=== PATIENT | male | born 1955 | race Caucasian/White ===

== ENCOUNTER 2016-08-12 16:29 | Inpatient (IN) | payer OTHER ==
--- NOTE | 2016-08-12 16:41 | ED ---
General Adult HPI - General Stated complaint: JOSR, STOMA Time Seen by Provider: 08/12/16 16:30 Source: RN notes reviewed - History of Present Illness Initial comments: This is a 61-year-old male who presents emergency Department complaining of coughing but a bit. Patient has a tracheostomy. Patient states while he was coughing this morning it got plugged with what he believes to be mucus but he was unable to suction it out as they came to the emergency department. Patient denies any fever or chills. Patient denies any chest pain or palpitations. Patient denies abdominal pain patient denies nausea vomiting or diarrhea per patient denies headache patient denies numbness weakness. It is difficult to get much more history out of the patient because he is nonverbal - Related Data Home Medications Medication Instructions Recorded Confirmed Budesonide [Pulmicort] 0.5 mg INHALATION RT-BID 11/11/13 08/12/16 Furosemide [Lasix] 40 mg PO TID 11/11/13 08/12/16 Lactulose 30 gm PO DAILY 08/12/16 08/12/16 Spironolactone [Aldactone] 50 mg PO TID 08/12/16 08/12/16 Allergies Allergy/AdvReac Type Severity Reaction Status Date / Time No Known Allergies Allergy Verified 08/12/16 17:01 Review of Systems ROS Statement: Those systems with pertinent positive or pertinent negative responses have been documented in the HPI. ROS Other: All systems not noted in ROS Statement are negative. Past Medical History Past Medical History: GERD/Reflux, Hypertension, Thyroid Disorder Additional Past Medical History / Comment(s): throat cancer, anxiety, chf History of Any Multi-Drug Resistant Organisms: None Reported Additional Past Surgical History / Comment(s): trach Past Psychological History: Anxiety Smoking Status: Former smoker Past Alcohol Use History: None Reported Past Drug Use History: None Reported General Exam - General Exam Comments Initial Comments: GENERAL: Patient is well-developed and well-nourished. Patient is nontoxic and well- hydrated and is in mild distress. ENT: Neck is soft and supple. No significant lymphadenopathy is noted. Oropharynx is clear. Moist mucous membranes. Neck has full range of motion without eliciting any pain. EYES: The sclera were anicteric and conjunctiva were pink and moist. Extraocular movements were intact and pupils were equal round and reactive to light. Eyelids were unremarkable. PULMONARY: Patient has some diminished breath sounds CARDIOVASCULAR: Patient is tachycardic at about 150 beats a minute ABDOMEN: Soft and nontender with normal bowel sounds. No palpable organomegaly was noted. There is no palpable pulsatile mass. SKIN: Skin is clear with no lesions or rashes and otherwise unremarkable. NEUROLOGIC: Patient is alert and oriented x3. Cranial nerves II through XII are grossly intact. Motor and sensory are also intact. Normal speech, volume and content. Symmetrical smile. MUSCULOSKELETAL: Normal extremities with adequate strength and full range of motion. LYMPHATICS: No significant lymphadenopathy is noted PSYCHIATRIC: Normal psychiatric evaluation. Course Vital Signs 08/12/16 08/12/16 08/12/16 16:32 17:03 17:14 Temperature 97.9 F Pulse Rate 148 H 145 H 127 H Respiratory 22 22 24 Rate Blood Pressure 158/100 136/76 O2 Sat by Pulse 95 95 Oximetry 08/12/16 17:56 Temperature Pulse Rate 131 H Respiratory Rate Blood Pressure O2 Sat by Pulse Oximetry Medical Decision Making - Medical Decision Making EKG shows supraventricular tachycardia with a PVC at 159 bpm QRS is 84 QT interval 348 QTC is 558. Patient's EKG shows no ST segment elevation or depression I compared to an old EKG aside from the tachycardia I noticed no significant differences Patient's EKG showed a heart rate of 150s I gave the patient 6 of adenosine slowed down to a normal sinus rhythm then went back up to 130 beats a minute. At 130 I see no P waves it's not a regular period Chest x-ray shows a right lower lobe infiltrate. Patient is also tachycardic and appears to be an SVT of the rate is only about 130-150. His any P waves and it does not appear to be atrial fibrillation because it is not irregular I started the patient on antibiotics and a Cardizem drip - Lab Data Result diagrams: 08/12/16 16:35 08/12/16 16:35 Lab Results 08/12/16 08/12/16 08/12/16 Range/Units 16:35 16:35 16:35 WBC 10.0 (3.8-10.6) k/uL RBC 5.22 (4.30-5.90) m/uL Hgb 16.2 (13.0-17.5) gm/dL Hct 49.2 (39.0-53.0) % MCV 94.2 (80.0-100.0) fL MCH 31.0 (25.0-35.0) pg MCHC 32.9 (31.0-37.0) g/dL RDW 16.7 H (11.5-15.5) % Plt Count 176 (150-450) k/uL Neutrophils % (Manual) 83.0 % Band Neutrophils % 3.0 % Lymphocytes % (Manual) 8.0 % Monocytes % (Manual) 6.0 % Neutrophils # (Manual) 8.6 H (1.3-7.7) k/uL Lymphocytes # (Manual) 0.8 L (1.0-4.8) k/uL Monocytes # (Manual) 0.6 (0-1.0) k/uL Nucleated RBCs 0 (0-0) /100 WBC Manual Slide Review Performed Large Platelets Present Poikilocytosis Slight Anisocytosis Slight PT (9.0-12.0) sec INR (<1.1) APTT (22.0-30.0) sec D-Dimer (<0.60) mg/L FEU Sodium 146 H (137-145) mmol/L Potassium 3.0 L* (3.5-5.1) mmol/L Chloride 105 (98-107) mmol/L Carbon Dioxide 22 (22-30) mmol/L Anion Gap 19 mmol/L BUN 16 (9-20) mg/dL Creatinine 1.50 H (0.66-1.25) mg/dL Est GFR (MDRD) Af Amer 58 (>60 ml/min/1.73 sqM) Est GFR (MDRD) Non-Af 48 (>60 ml/min/1.73 sqM) Glucose 138 H (74-99) mg/dL Calcium 8.7 (8.4-10.2) mg/dL Total Bilirubin 1.8 H (0.2-1.3) mg/dL AST 121 H (17-59) U/L ALT 74 H (21-72) U/L Alkaline Phosphatase 146 H (38-126) U/L Total Creatine Kinase 524 H (55-170) U/L CK-MB (CK-2) 2.1 (0.0-2.4) ng/mL CK-MB (CK-2) Rel Index 0.4 Troponin I 0.013 (0.000-0.034) ng/mL Total Protein 7.1 (6.3-8.2) g/dL Albumin 3.4 L (3.5-5.0) g/dL 08/12/16 08/12/16 Range/Units 16:35 16:35 WBC (3.8-10.6) k/uL RBC (4.30-5.90) m/uL Hgb (13.0-17.5) gm/dL Hct (39.0-53.0) % MCV (80.0-100.0) fL MCH (25.0-35.0) pg MCHC (31.0-37.0) g/dL RDW (11.5-15.5) % Plt Count (150-450) k/uL Neutrophils % (Manual) % Band Neutrophils % % Lymphocytes % (Manual) % Monocytes % (Manual) % Neutrophils # (Manual) (1.3-7.7) k/uL Lymphocytes # (Manual) (1.0-4.8) k/uL Monocytes # (Manual) (0-1.0) k/uL Nucleated RBCs (0-0) /100 WBC Manual Slide Review Large Platelets Poikilocytosis Anisocytosis PT 12.9 H (9.0-12.0) sec INR 1.3 (<1.1) APTT 25.7 (22.0-30.0) sec D-Dimer 0.53 (<0.60) mg/L FEU Sodium (137-145) mmol/L Potassium (3.5-5.1) mmol/L Chloride (98-107) mmol/L Carbon Dioxide (22-30) mmol/L Anion Gap mmol/L BUN (9-20) mg/dL Creatinine (0.66-1.25) mg/dL Est GFR (MDRD) Af Amer (>60 ml/min/1.73 sqM) Est GFR (MDRD) Non-Af (>60 ml/min/1.73 sqM) Glucose (74-99) mg/dL Calcium (8.4-10.2) mg/dL Total Bilirubin (0.2-1.3) mg/dL AST (17-59) U/L ALT (21-72) U/L Alkaline Phosphatase (38-126) U/L Total Creatine Kinase (55-170) U/L CK-MB (CK-2) (0.0-2.4) ng/mL CK-MB (CK-2) Rel Index Troponin I (0.000-0.034) ng/mL Total Protein (6.3-8.2) g/dL Albumin (3.5-5.0) g/dL Critical Care Time Critical Care Time: Yes Total Critical Care Time: 35 Disposition Clinical Impression: Pneumonia, Tachycardia, Hypokalemia Disposition: ADMITTED IP TO THIS HOSP Referrals: Iban Torres MD [Primary Care Provider] - 1-2 days Time of Disposition: 17:58
[2016-08-12 17:07] LABS: INR 1.3 (<1.1); Partial Thromboplastin Time 25.7 sec (22.0-30.0); Prothrombin Time 12.9 sec (9.0-12.0)
--- NOTE | 2016-08-12 17:07 | XR ---
EXAMINATION TYPE: XR chest 1V portable DATE OF EXAM: 08/12/2016 5:01 PM COMPARISON: 11/11/2013 HISTORY: Difficulty breathing and cough TECHNIQUE: Single frontal view of the chest is obtained. FINDINGS: There is a mild infiltrate at the right lung base. There is no gross heart failure. Heart size is normal. There is slight blunting of right costophrenic angle. There are no hilar masses. Ther e are chest leads. IMPRESSION: There is a new mild right lower lobe infiltrate and pleural fluid compared to last exam. No gross heart failure.
[2016-08-12 17:08] LABS: Anisocytosis Slight; Aty Lym Flag Marked; CH 32.3; CHCM 34.5; HCT 49.2 % (39.0-53.0); HDW 3.79; HGB 16.2 gm/dL (13.0-17.5); Large Platelets Flag Marked; MCHC 32.9 g/dL (31.0-37.0); MCV 94.2 fL (80.0-100.0); Mean Platelet Volume 11.7; Poikilocytosis Slight; RBC 5.22 m/uL (4.30-5.90); RDW 16.7 % (11.5-15.5); WBC (Perox) 10.03
[2016-08-12 17:11] LABS: Calcium 8.7 mg/dL (8.4-10.2); Total Bilirubin 1.8 mg/dL (0.2-1.3); Total Protein 7.1 g/dL (6.3-8.2)
[2016-08-12] MEDS ORDERED: ADENOSINE 3 MG/ML 2 ML VIAL IVP STA (17:11)
[2016-08-12 17:18] LABS: Add Differential Manual Differential
[2016-08-12] MEDS ORDERED: POTASSIUM CHLORIDE ER 20 MEQ TAB.ER PO STA (17:18)
[2016-08-12] MEDS ORDERED: LEVOFLOXACIN 750MG-D5W PMX 750 MG in DEXTROSE/WATER 1 150ML.BAG IVPB STA (17:20)
[2016-08-12 17:22] LABS: Large Platelets Present; Manual Review Performed; Nucleated Red Blood Cells 0 /100 WBC (0-0); Total Cells Counted 100
[2016-08-12] MEDS ORDERED: IPRATROPIUM-ALBUTEROL 3 ML NEB INHALATION STA (17:26)
[2016-08-12 17:28] LABS: Creatine Kinase MB 2.1 ng/mL (0.0-2.4); Troponin I 0.013 ng/mL (0.000-0.034)
[2016-08-12] MEDS ORDERED: DILTIAZEM 125 MG in SODIUM CHLORIDE 0.9% 100 ML IV ONE (17:50)
[2016-08-12] MEDS ORDERED: PNEUMONIA PROTOCOL UTILIZED 1 EACH MISC PO PRN (17:59)
[2016-08-12] MEDS ORDERED: POTASSIUM CHLORIDE 10 MEQ, LIDOCAINE 2% INJ 10 MG in SODIUM CHLORIDE 0.9% 100 ML IVPB SCH (18:00)
[2016-08-12] MEDS ORDERED: TEMAZEPAM 15 MG CAP PO PRN (20:11)
[2016-08-12] MEDS ORDERED: Potassium Replacement Protocol 1 EACH MISC MISCELLANE PRN (20:55)
[2016-08-12] MEDS: ALBUTEROL NEBULIZED 2.5 MG/3 ML INHALATION SCH (21:08)
[2016-08-12] MEDS: LEVOTHYROXINE 100 MCG TAB PO SCH (21:53)
[2016-08-12] MEDS: POTASSIUM CHLORIDE ER 20 MEQ TAB.ER PO SCH ×2 (21:54→21:55)
[2016-08-12] MEDS ORDERED: INFLUENZA VACCINE (3YR+) 60 MCG/0.5 ML SYRINGE IM ONE (22:09)
[2016-08-13] MEDS: ALBUTEROL NEBULIZED 2.5 MG/3 ML INHALATION SCH (00:08)
[2016-08-13] MEDS: IPRATROPIUM-ALBUTEROL 3 ML NEB INHALATION PRN ×2 (02:56→23:47)
[2016-08-13 06:58] LABS: Calcium 8.5 mg/dL (8.4-10.2); Potassium 3.5 mmol/L (3.5-5.1)
--- NOTE | 2016-08-13 07:57 | XR ---
EXAMINATION TYPE: XR chest 2V DATE OF EXAM: 08/13/2016 7:20 AM COMPARISON: August 12, 2016 HISTORY: Shortness of breath TECHNIQUE: Frontal and lateral views of the chest are obtained. FINDINGS: Scattered senescent parenchymal changes noted. Hyperinflation compatible with COPD. Right lower lobe infiltrate persists. No evidence for atelectasis. Heart size is stable. Mediastinal structures are stable and grossly unremarkable. No evidence for hilar prominence. Degenerative changes dorsal spine. IMPRESSION: 1. No significant interval change. Right lower lobe infiltrate.
[2016-08-13] MEDS ORDERED: ALBUTEROL NEBULIZED 2.5 MG/3 ML INHALATION SCH (08:00)
[2016-08-13] MEDS: LACTULOSE 20 GM/30 ML CUP PO SCH (08:43)
[2016-08-13] MEDS ORDERED: BUDESONIDE 0.5 MG/2 ML NEBU INHALATION SCH ×2 (09:00→20:25)
[2016-08-13] MEDS: IPRATROPIUM-ALBUTEROL 3 ML NEB INHALATION SCH ×4 (09:07→20:26)
[2016-08-13] MEDS: BUDESONIDE 0.25 MG/2 ML NEBU INHALATION SCH (09:07)
--- NOTE | 2016-08-13 11:29 | CONS ---
DATE OF CONSULTATION: This is a 61-year-old gentleman with severe COPD, who is admitted to hospital with progressively worsening shortness of breath and was found to have a tachyarrhythmia that was thought to be SVT treated with adenosine without much response and subsequently had been placed on intravenous Cardizem. This morning his predominant symptom is shortness of breath. He denies chest pain, leg edema. The patient has history of cirrhosis of the liver and severe COPD. EKG showed sinus tachycardia, could even be multifocal atrial tachycardia. I do not believe he is in SVT. I am going to start the IV Cardizem and put him on oral Cardizem. He is also receiving antibiotics. Past medical history is significant for hypothyroidism, COPD, cirrhosis of the liver. Medications include Synthroid, Zithromax, Aldactone, lactulose, Lasix and Pulmicort. ALLERGIES: There are no known drug allergies. FAMILY HISTORY: Negative for premature coronary artery disease. SOCIAL HISTORY: Denies current smoking or EtOH abuse. REVIEW OF SYSTEMS: HEENT: Unremarkable. CARDIAC: As described above. RESPIRATORY: As described above. GI: Negative. GENITOURINARY: Negative. ALLERGY/IMMUNOLOGY: Negative. SKIN/MUSCULOSKELETAL: Significant for arthritis. PSYCHOSOCIAL: Negative. ENDOCRINE: Negative. DERMATOLOGIC: Negative. CONSTITUTIONAL: Negative. ONCOLOGICAL: Negative. The rest of the system review is not relevant. On exam, heart rate is 90 beats per minute. Blood pressure is 118/70, respiratory rate is 18. Chest exam reveals bilateral rhonchi. Heart exam reveals first and second heart sounds. No gallop. Abdomen is soft. Exam of the extremities reveals 1+ edema. Peripheral pulses are felt. Labs show that the hemoglobin is 16.2, platelet count is 176. Potassium was low, but this morning it is 3.5. BUN is 24. Creatinine is 1.7. AST, ALT are elevated. Albumin is low. ASSESSMENT: Sinus tachycardia secondary to underlying chronic obstructive pulmonary disease exacerbation. I am going to stop the IV Cardizem and start him on oral Cardizem. I will obtain a 2-D echo to document left ventricle function
--- NOTE | 2016-08-13 11:31 | P.CNPUL ---
History of Present Illness Consult date: 08/13/16 Reason for consult: dyspnea, COPD History of present illness: 61-year-old male patient with known history of meningeal cancer and COPD. The patient was diagnosed having laryngeal cancer approximately 4 years ago and he was treated with adjuvant/neoadjuvant chemotherapy following that he underwent a total laryngectomy at [facility]. This was followed by radiation therapy. S/P Valve was attempted to be placed on multiple occasions however this is not helpful and the speech and the valve Dislodging. Currently the Patient Is in the Hospital for Increased Shortness of Breath. The patient is known to have COPD. He quit smoking approximately 4 years ago. The patient has been using budesonide neb last treatment twice a day. He has no home oxygen. He was living his life normally and approximately 3 days ago started having increased chest congestion, shortness of breath and wheezing. He felt his chest was congested and he was getting plugged with mucus. Attempts to suction these mucous plugs were unsuccessful both at home and here in the hospital. Ultimately he was able to take out the small pieces of bloody mucoid secretions yesterday. His chest x-ray shows COPD otherwise there is no clearcut airspace disease or pneumonias. No chest pain. He has some impairment his renal function probably secondary to an acute kidney injury. His potassium level is also low and this needs to be replaced. No change in mental status. No nausea or vomiting. No history of any major swelling in the lower extremities. This is his first hospitalization over the past several years for any breathing complications. Otherwise this patient has been doing well. Review of Systems Point review of system was done and the positive findings are most above in history of present illness Past Medical History Past Medical History: Cancer, Heart Failure, GERD/Reflux, Hypertension, Liver Disease, Thyroid Disorder Additional Past Medical History / Comment(s): Status post complete laryngectomy and the patient has a tracheotomy he had surgery was done at [facility]. Chemotherapy was done prior to surgery and he received radiation therapy following the surgery, COPD, liver, liver cirrhosis and the patient has had procedures done at [facility], chronic generalized anxiety disorder, CHF, hypothyroidism History of Any Multi-Drug Resistant Organisms: None Reported Additional Past Surgical History / Comment(s): Total laryngectomy, TIPS procedure for liver cirrhosis Past Psychological History: Anxiety Smoking Status: Former smoker (Patient quit smoking 5 years ago, prior to that used to smoke 2 pack of cigarettes a day for a total of 40 years. No history of substance abuse, no alcoholism) Past Alcohol Use History: None Reported Past Drug Use History: None Reported - Past Family History Mother Family Medical History: No Reported History Father Family Medical History: Cancer Additional Family Medical History / Comment(s): prostate Medications and Allergies Home Medications Medication Instructions Recorded Confirmed Type Budesonide [Pulmicort] 0.5 mg INHALATION RT-BID 11/11/13 08/12/16 History Furosemide [Lasix] 40 mg PO TID 11/11/13 08/12/16 History Azithromycin [Zithromax] 250 mg PO MOWEFR 08/12/16 08/12/16 History Lactulose 30 gm PO DAILY 08/12/16 08/12/16 History Levothyroxine Sodium [Synthroid] 100 mcg PO HS 08/12/16 08/12/16 History Spironolactone [Aldactone] 50 mg PO TID 08/12/16 08/12/16 History Allergies Allergy/AdvReac Type Severity Reaction Status Date / Time No Known Allergies Allergy Verified 08/12/16 17:01 Physical Exam Vitals: Vital Signs Temp Pulse Pulse Resp BP BP Pulse Ox 08/13/16 09:20 90 08/13/16 09:08 90 08/13/16 08:40 98.7 F 105 H 18 118/70 94 L 08/13/16 03:23 97.2 F L 104 H 20 117/61 98 08/13/16 03:03 88 08/13/16 02:52 88 08/13/16 00:17 88 08/13/16 00:07 88 08/12/16 23:35 98.0 F 113 H 24 115/60 94 L 08/12/16 21:27 114 H 08/12/16 21:13 117 H 08/12/16 20:00 98.1 F 135 H 24 113/65 93 L 08/12/16 19:44 97.8 F 120 H 30 H 131/72 91 L 08/12/16 18:50 98.4 F 123 H 24 108/60 93 L 08/12/16 18:28 123 H 08/12/16 18:27 144 H 20 110/64 95 08/12/16 18:15 143 H 22 133/58 94 L 08/12/16 18:07 139 H Intake and Output 08/12/16 08/13/16 08/13/16 22:59 06:59 14:59 Intake Total 390 280 118 Output Total 800 175 Balance -410 280 -57 Intake: Intake, IV Titration 30 40 Amount Diltiazem 125 mg In 30 40 Sodium Chloride 0.9% 100 ml @ 10 MG/HR 10 mls/hr IV .[id number] Rx#: [id number] Oral 360 240 118 Output: Urine 800 175 Other: Voiding Method Urinal # Voids 2 350 Weight 108.7 kg 108.7 kg Head exam was generally normal. There was no scleral icterus or corneal arcus. Mucous membranes were moist. The patient has a check Semi-in place. Scars of previous surgery and radiation therapy are also noted on his anterior neck area. No lymphadenopathy. No neck masses. Lungs sounds are diminished and there is diffuse expiratory wheezes throughout the lung gaspar bilaterally. There is also prolongation of expiratory phase of breathing.Cardiac exam revealed the PMI to be normally situated and sized. The rhythm was regular and no extrasystoles were noted during several minutes of auscultation. The first and second heart sounds were normal and physiologic splitting of the second heart sound was noted. There were no murmurs, rubs, clicks, or gallops.Abdominal exam revealed normal bowel sounds. The abdomen was soft, non- tender, and without masses, organomegaly, or appreciable enlargement of the abdominal aorta.Examination of the extremities revealed easily palpable radial, femoral and pedal pulses. There was no cyanosis, clubbing or edema. Results - Laboratory Findings CBC and BMP: 08/12/16 16:35 08/13/16 06:11 PT/INR, D-dimer PT 12.9 sec (9.0-12.0) H 08/12/16 16:35 INR 1.3 (<1.1) 08/12/16 16:35 D-Dimer 0.53 mg/L FEU (<0.60) 08/12/16 16:35 Abnormal lab findings: Abnormal Labs 08/12/16 08/13/16 20:25 06:11 Potassium 3.0 L* BUN 24 H Creatinine 1.77 H Glucose 156 H - Diagnostic Findings Chest x-ray: image reviewed Assessment and Plan Plan: Assessment 1 acute COPD exacerbation with secondary shortness of breath. Rule out underlying tracheobronchitis causing some bloody mucoid secretions. 2 shortness of breath secondary to above 3 laryngeal cancer with a total laryngectomy and the patient has a tracheotomy 4 acute kidney injury 5 hypokalemia 6 mild elevation of the CPK without troponin elevation, free of any chest pain 7 CHF, history of Plan We'll start the patient on DuoNeb nebulized treatments 4 times a day around-the- clock. We will resume his budesonide neb last treatment twice a day. Cover this patient with IV Levaquin. Sputum Gram stain and culture. Oxygen therapy at 2 L of along with humidification. IV Solu Medrol 60 every 6 hours. Echocardiogram. Start the patient half-normal saline and monitor his renal function. Replete serum. We'll continue to follow anticipate further improvement over the next 24-48 hours.
[2016-08-13] MEDS: methylPREDNISolone SOD SUCCI 125 MG/2 ML VIAL IV SCH ×3 (12:16→23:41)
[2016-08-13] MEDS: DILTIAZEM ORAL 30 MG TAB PO SCH ×3 (12:16→22:08)
[2016-08-13] MEDS: HYDROcodone/APAP 5-325MG 1 EACH TAB PO PRN (12:23)
[2016-08-13] MEDS: SODIUM CHLORIDE 0.45% 1,000 ML IV SCH ×2 (12:24→23:42)
--- NOTE | 2016-08-13 13:39 | HP ---
DATE OF ADMISSION: Chief complaint is difficulty breathing. HISTORY OF PRESENT ILLNESS: Mr. Portillo is a 61-year-old male with a known history of laryngeal cancer, status post tracheostomy in 2010 and laryngectomy status post radiation and history of smoking, quit 40 years back and COPD, came to the hospital with complaints of difficulty breathing for the past 4 days. He is felt that he is getting congested and unable to lay flat at home. Attempts to suction the mucous plugs were unsuccessful, both at home and in the hospital. Chest x-ray showed a right lower lobe pulmonary infiltrate and COPD, currently patient was also found to have sinus tachycardia with heart rate around 135 when he came to the hospital and was started on Cardizem IV as well. EKG showed sinus tachycardia and chest x-ray showed initially there is a new right lower lobe infiltrate and pleural fluid compared to last exam. Pulmonary and Cardiology have been consulted. Patient otherwise did have a fever of 100 at home. Patient was found to have severe hypokalemia and currently hypokalemia improved now. Otherwise, patient denied any other complaints. REVIEW OF SYSTEMS: CONSTITUTIONAL: Patient did have fever at home and no chills. No weakness or malaise. RESPIRATORY: Patient does have cough with plug of mucus and short of breath. CARDIOVASCULAR: No chest pain. Patient does have short of breath. No leg swelling. ABDOMEN: No nausea, vomiting, or abdominal pain. GENITOURINARY: Negative. ENDOCRINE: Negative. PSYCHIATRY: Negative. SKIN: Negative. MUSCULOSKELETAL: Negative. All other 14-point review of systems negative except as above. Past medical history includes laryngeal cancer, status post total laryngectomy and radiation and tracheostomy, hypothyroidism, hypertension, CHF with ejection fraction unknown, COPD, liver cirrhosis, chronic generalized anxiety. PAST SURGICAL HISTORY: TIPS procedure for liver cirrhosis and laryngectomy. PSYCHOSOCIAL HISTORY: Anxiety. SOCIAL HISTORY: A former smoker; quit 4 years back, used to smoke 2 packs of cigarettes per day for a total of 40 years. Denied any alcohol, denied any drugs or IVDU. FAMILY HISTORY: Father had prostate cancer. Mother had no reported history. Home medication include: 1. Pulmicort. 2. Lasix. 3. Azithromycin. 4. Lactulose. 5. Levothyroxine. 6. Spironolactone. ALLERGIES: No known drug allergies. PHYSICAL EXAMINATION: A 61-year-old male, sitting on the bed, comfortably. Awake, alert, oriented x3. He appears in no apparent distress. VITALS: Blood pressure is 110/64, pulse is 144, respirations 20, temperature afebrile. Pulse ox is 95% on tracheal collar on oxygen. HEENT: Atraumatic, normocephalic. Neck is supple. Tracheostomy. No secretions at this time. CVS EXAM: S1, S2 heard. No murmurs, no gallop. LUNGS: Bilateral air entry is present, prolonged expiratory phase. No wheezing heard and decreased breath sounds at the left basal. Nonlabored breathing. Abdomen is soft, nontender. Bowel sounds present. TREE INSPECTOR: Awake, alert and oriented x3. No focal neurologic deficits. Cranial nerves grossly intact. EXTREMITIES: No edema. Pulses palpable bilaterally. No clubbing or cyanosis. PSYCHIATRIC: Cooperative. LABORATORY DATA: WBC 10.0, hemoglobin is 16.2, platelets 176, INR 1.3. D-dimer is 0.53. Sodium 146, potassium 3.0, chloride 105, bicarb is 22, creatinine 11.5. BUN 16, AST is 21, ALT is 74, alk phos 146, CPK level 524. Albumin 3.4, creatinine level increased to 1.77. IMPRESSION: 1. Shortness of breath secondary to acute chronic obstructive pulmonary disease exacerbation. 2. Right lower lobe infiltrate, possible pneumonia. 3. History of laryngeal cancer, status post total laryngectomy, status post chemoradiation and tracheostomy. 4. Acute kidney disease, most likely prerenal with worsening BUN and creatinine level. 5. Severe hypokalemia, potassium of 3.0. 6. Elevated CPK level. 7. History of congestive heart failure, ejection fraction unknown. 8. Sinus tachycardia, improved with IV Cardizem drip. DISCUSSION AND PLAN: Patient will be continued on methylprednisolone 60 mg q.6 hourly along with breathing treatments and current antibiotics, levofloxacin. Heart rate improved and Cardizem drip has been changed to p.o. now. Cardiology and Pulmonary are following the patient. Will continue the current management and follow up closely. Further recommendations based on the clinical course.
[2016-08-13] MEDS ORDERED: LEVOFLOXACIN 750MG-D5W PMX 750 MG in DEXTROSE/WATER 1 150ML.BAG IVPB SCH (17:00)
[2016-08-13 17:21] LABS: Glucose,Whole Blood 134 mg/dL (75-99)
[2016-08-13] MEDS: BUDESONIDE 0.5 MG/2 ML NEBU INHALATION SCH (20:27)
[2016-08-13 20:39] LABS: Glucose,Whole Blood 137 mg/dL (75-99)
[2016-08-13] MEDS ORDERED: ZOLPIDEM 10 MG TAB PO PRN (21:00)
[2016-08-13] MEDS: INSULIN LISPRO (humaLOG) 300 UNIT/3 ML VIAL SQ SCH (22:04)
[2016-08-13] MEDS: LEVOTHYROXINE 100 MCG TAB PO SCH (22:08)
[2016-08-14 01:07] LABS: Hemoglobin A1C 4.9 % (4.2-6.1)
[2016-08-14] MEDS: HYDROcodone/APAP 5-325MG 1 EACH TAB PO PRN ×2 (03:24→20:33)
[2016-08-14] MEDS: IPRATROPIUM-ALBUTEROL 3 ML NEB INHALATION PRN (03:52)
[2016-08-14 05:53] LABS: Glucose,Whole Blood 145 mg/dL (75-99)
[2016-08-14 06:09] LABS: Anisocytosis Slight; Aty Lym Flag Marked; CH 32.2; CHCM 34.1; HCT 45.7 % (39.0-53.0); HGB 15.1 gm/dL (13.0-17.5); Large Platelets Flag Moderate; MCH 31.5 pg (25.0-35.0); MCV 95.3 fL (80.0-100.0); Mean Platelet Volume 11.1; Poikilocytosis Slight; RBC 4.79 m/uL (4.30-5.90); RDW 16.6 % (11.5-15.5); WBC 23.1 k/uL (3.8-10.6); WBC (Perox) 23.77
[2016-08-14] MEDS: methylPREDNISolone SOD SUCCI 125 MG/2 ML VIAL IV SCH ×4 (06:10→23:56)
[2016-08-14] MEDS: INSULIN LISPRO (humaLOG) 300 UNIT/3 ML VIAL SQ SCH ×4 (06:13→23:56)
[2016-08-14 06:15] LABS: Calcium 8.9 mg/dL (8.4-10.2)
[2016-08-14 06:20] LABS: Potassium 3.7 mmol/L (3.5-5.1)
[2016-08-14 06:46] LABS: Add Differential Manual Differential
[2016-08-14 06:48] LABS: Large Platelets Present; Manual Review Performed; Nucleated Red Blood Cells 0 /100 WBC (0-0); Total Cells Counted 100
[2016-08-14] MEDS: BUDESONIDE 0.5 MG/2 ML NEBU INHALATION SCH ×2 (07:44→20:21)
[2016-08-14] MEDS: IPRATROPIUM-ALBUTEROL 3 ML NEB INHALATION SCH ×4 (07:44→20:21)
[2016-08-14] MEDS: BUDESONIDE 0.25 MG/2 ML NEBU INHALATION SCH (08:32)
[2016-08-14] MEDS ORDERED: MORPHINE SULFATE 4 MG/ML SYRINGE IVP STA (09:20)
[2016-08-14] MEDS ORDERED: MIDAZOLAM 2 MG/2 ML VIAL IV ONE (09:20)
[2016-08-14 09:25] LABS: Glucose,Whole Blood 147 mg/dL (75-99)
[2016-08-14] MEDS ORDERED: MORPHINE SULFATE 4 MG/ML SYRINGE ONE (09:31)
[2016-08-14] MEDS ORDERED: MIDAZOLAM 2 MG/2 ML VIAL ONE (09:37)
[2016-08-14] MEDS ORDERED: PROPOFOL 500 MG in EMPTY BAG 1 BAG IV SCH (10:00)
[2016-08-14 10:10] LABS: ABG Base Excess -4.1 mmol/L; ABG HCO3 22 mmol/L (21-25); ABG PCO2 49 mmHg (35-45); ABG PH 7.27 (7.35-7.45); ABG PO2 110 mmHg (83-108); ABG TCO2 23 mmol/L (19-24)
[2016-08-14 10:11] LABS: ABG Oxygen Saturation 97.5 % (94-97)
[2016-08-14] MEDS: PROPOFOL 500 MG in EMPTY BAG 1 BAG IV SCH ×3 (10:15→20:42)
--- NOTE | 2016-08-14 10:18 | ECHOF ---
Referral Reason:dyspnea, CHF MEASUREMENTS -------- HEIGHT: 170.2 cm WEIGHT: 110.2 kg BP: RVIDd: 2.8 cm (< 3.3) IVSd: 1.1 cm (0.6 - 1.1) LVIDd: 4.2 cm (3.9 - 5.3) LVPWd: 1.2 cm (0.6 - 1.1) IVSs: 1.5 cm LVIDs: 2.4 cm LVPWs: 1.1 cm LA Diam: 4.4 cm (2.7 - 3.8) MV EXCURSION: 14.837 mm (> 18.000) MV EF SLOPE: 125 mm/s (70 - 150) EPSS: 0.5 cm MV E Niranjan: 1.24 m/s MV DecT: 214 ms MV A Niranjan: 0.71 m/s MV E/A Ratio: 1.73 RAP: 5.00 mmHg RVSP: 17.74 mmHg FINDINGS -------- Undetermined rhythm. This was a technically adequate study. There is mild concentric left ventricular hypertrophy. Overall left ventricular systolic function is low-normal with, an EF between 50 - 55 %. The right ventricle is normal in size. The right atrial size is normal. There is mild aortic valve sclerosis. There is no evidence of aortic regurgitation. Mild mitral annular calcification present. Mild mitral regurgitation is present. Mild tricuspid regurgitation present. There is no evidence of pulmonary hypertension. The right ventricular systolic pressure, as measured by Doppler, is 17.74mmHg. There is no pulmonic regurgitation present. The aortic root size is normal. There is no pericardial effusion. CONCLUSIONS -------- 1. There is mild concentric left ventricular hypertrophy. 2. Overall left ventricular systolic function is low-normal with, an EF between 50 - 55 %. 3. There is mild aortic valve sclerosis. 4. Mild mitral annular calcification present. 5. Mild mitral regurgitation is present. 6. Mild tricuspid regurgitation present. 7. There is no evidence of pulmonary hypertension. 8. The right ventricular systolic pressure, as measured by Doppler, is 17.74mmHg. ART SUPERVISOR: Lila Chopra [facility]
--- NOTE | 2016-08-14 10:36 | XR ---
EXAMINATION TYPE: XR chest 1V portable DATE OF EXAM: 08/14/2016 10:14 AM COMPARISON: 08/13/2016 HISTORY: Pneumonia TECHNIQUE: Single frontal view of the chest is obtained. FINDINGS: Subsegmental changes at the right lung base. Postsurgical change overlying the soft tissue s of neck and there is a tracheostomy tube with the tip overlying the thoracic inlet. Approximately 4 .4 cm above meghan. Cardiomegaly and underlying COPD noted. Arthropathy of the shoulders. No pneumothorax. IMPRESSION: 1. Stable subsegmental right lower lobe infiltrate or atelectasis 2. Tracheostomy tube seen with the tip 4.4 cm above meghan 3. COPD and cardiomegaly
[2016-08-14] MEDS: DILTIAZEM ORAL 30 MG TAB PO SCH ×2 (10:54→16:19)
[2016-08-14] MEDS: LACTULOSE 20 GM/30 ML CUP PO SCH (10:56)
[2016-08-14] MEDS: CHLORHEXIDINE GLUCONATE 15 ML CUP MUCOUS MEM SCH ×2 (10:56→20:34)
[2016-08-14 11:57] LABS: Appearance,Urine Clear (Clear); Bilirubin,Urine Negative (Negative); Glucose,Urine (UA) Negative (Negative); Ketones,Urine Negative (Negative); Leukocyte Esterase,Urine Negative (Negative); Mucus,Urine Rare /hpf; Nitrite,Urine Negative (Negative); PH, Urine 5.5 (5.0-8.0); Particle Count 9716; Protein,Urine Trace (Negative); RBC,Urine 1 /hpf (0-5); Specific Gravity,Urine 1.012 (1.001-1.035); UA Billing (MACRO vs. MICRO) MICRO; Urobilinogen,Urine <2.0 mg/dL (<2.0); WBC,Urine 7 /hpf (0-5)
[2016-08-14 12:07] LABS: Potassium 3.5 mmol/L (3.5-5.1)
[2016-08-14] MEDS: ENOXAPARIN 40 MG/0.4 ML SYRINGE SQ SCH (12:09)
[2016-08-14] MEDS: PANTOPRAZOLE 40 MG/10 ML VIAL IV SCH (12:09)
[2016-08-14 12:18] LABS: Glucose,Whole Blood 156 mg/dL (75-99)
[2016-08-14] MEDS ORDERED: Potassium Replacement Protocol 1 EACH MISC MISCELLANE PRN (12:42)
[2016-08-14] MEDS ORDERED: POTASSIUM CHLORIDE ER 20 MEQ TAB.ER PO SCH (13:00)
--- NOTE | 2016-08-14 13:46 | US ---
EXAMINATION TYPE: US venous doppler duplex LE BI DATE OF EXAM: 08/14/2016 1:29 PM COMPARISON: NONE CLINICAL HISTORY: swelling, right greater than left. SIDE PERFORMED: bilateral VESSELS IMAGED: External Iliac Vein (EIV) Common Femoral Vein Deep Femoral Vein Greater Saphenous Vein * Femoral Vein Popliteal Vein Small Saphenous Vein * Proximal Calf Veins (* superficial vessels) Findings: Right Leg: Appears negative for DVT Left Leg: Appears negative for DVT IMPRESSION: 1. No diagnostic evidence of DVT.
--- NOTE | 2016-08-14 13:53 | PN ---
This is a 61-year-old gentleman who is admitted to hospital with shortness of breath and sinus tachycardia. Has a history of tracheostomy, his respiratory status has deteriorated; hence, he had to be intubated and transferred to ICU. This morning he is intubated on vent, sedated Heart rate is 96 beats per minute, blood pressure is 97/55. Chest exam reveals diminished air entry bilaterally. Heart exam reveals first and second heart sounds. No gallop. Exam of the extremities did not reveal edema. Current medications include Cardizem 30 t.i.d., Lovenox subQ, insulin, Synthroid, and nebulizers. On an echocardiogram he has normal LV function. ASSESSMENT: 1. Respiratory failure. 2. Sinus tachycardia secondary to underlying respiratory illness. PLAN: Patient will continue with current supportive care.
[2016-08-14] MEDS ORDERED: POTASSIUM CHLORIDE ORAL LIQUID 40 MEQ/30 ML CUP PO SCH (14:00)
[2016-08-14] MEDS ORDERED: SODIUM CHLORIDE 0.9% 1,000 ML IV ONE (14:09)
[2016-08-14] MEDS: SODIUM CHLORIDE 0.45% 1,000 ML IV SCH (14:22)
[2016-08-14] MEDS ORDERED: NOREPINEPHRINE 4 MG in SODIUM CHLORIDE 0.9% 250 ML IV SCH (14:30)
--- NOTE | 2016-08-14 16:21 | P.PN ---
Subjective Principal diagnosis: Acute exacerbation of COPD 61-year-old male patient with known history of meningeal cancer and COPD. The patient was diagnosed having laryngeal cancer approximately 4 years ago and he was treated with adjuvant/neoadjuvant chemotherapy following that he underwent a total laryngectomy at [facility]. This was followed by radiation therapy. S/P Valve was attempted to be placed on multiple occasions however this is not helpful and the speech and the valve Dislodging. Currently the Patient Is in the Hospital for Increased Shortness of Breath. The patient is known to have COPD. He quit smoking approximately 4 years ago. The patient has been using budesonide neb last treatment twice a day. He has no home oxygen. He was living his life normally and approximately 3 days ago started having increased chest congestion, shortness of breath and wheezing. He felt his chest was congested and he was getting plugged with mucus. Attempts to suction these mucous plugs were unsuccessful both at home and here in the hospital. Ultimately he was able to take out the small pieces of bloody mucoid secretions yesterday. His chest x-ray shows COPD otherwise there is no clearcut airspace disease or pneumonias. No chest pain. He has some impairment his renal function probably secondary to an acute kidney injury. His potassium level is also low and this needs to be replaced. No change in mental status. No nausea or vomiting. No history of any major swelling in the lower extremities. This is his first hospitalization over the past several years for any breathing complications. Otherwise this patient has been doing well. Patient was reevaluated today on 08/14/2016, apparently the patient developed significant and profound shortness of breath earlier today. I was notified by the nurse about his condition, and I have made arrangements for the patient to transfer to the ICU. Upon arrival to the ICU, the patient was noted to be in significant respiratory distress, and needed to be intubated. However considering the patient has only a stoma, I attempted to place a size 6 tracheostomy cuffed Shiley tube, but could not pass it all the way down. However I was able to pass a size 4 Shiley since the stoma was quite narrow. And I was able to connect that the mechanical ventilation and patient was ventilated easily. Cuff was inflated, and there was minimal volume loss. However ABG post intubation and post placement on mechanical ventilation showed a pO2 of 110 pCO2 of 49 and pH of 7.27 and this was on a 50% FiO2 with tidal volume of 500 and PEEP of 5. Rate was 20. Patient had a venous Doppler upon arrival to the ICU and it was negative for DVT this was done because of asymmetric swelling noted in the lower extremities. Chest x-ray showed some subsegmental atelectasis or possibly infiltrates in the right lower lobe and there was evidence of COPD and cardiomegaly. CBC showed leukocytosis with WBC count of 23.1 hemoglobin was 15.1 renal profile was abnormal with a BUN of 35 creatinine of 1.70 Objective - Vital Signs Vital signs: Vital Signs Temp 97.8 F 08/14/16 12:30 Pulse 96 08/14/16 15:00 Resp 20 08/14/16 15:00 BP 86/49 08/14/16 15:00 Pulse Ox 91 L 08/14/16 15:00 Intake & Output 08/13/16 08/14/16 08/14/16 18:59 06:59 18:59 Intake Total 731 345 6357.853 Output Total 275 775 407 Balance 603 -675 1060.853 Weight 110.3 kg Intake: Intake, IV Titration 400 1467.853 Amount Propofol 500 mg In Empty 17.853 Bag 1 bag @ Titrate IV . Q0M YONATHAN Rx#:[id number] Sodium Chloride 0.45% 1, 400 450 000 ml @ 75 mls/hr IV . [id number] YONATHAN Rx#:[id number] Sodium Chloride 0.9% 1, 1000 000 ml @ 999 mls/hr IV . Q1H1M ONE Rx#:[id number] Oral 478 100 Output: Urine 275 775 407 Other: Voiding Method Urinal Urinal Indwelling Catheter - Exam Head exam was generally normal. There was no scleral icterus or corneal arcus. Mucous membranes were moist. The patient has a stoma in place. Scars of previous surgery and radiation therapy are also noted on his anterior neck area. No lymphadenopathy. No neck masses. Lungs sounds are diminished and there is diffuse expiratory wheezes throughout the lung gaspar bilaterally. There is also prolongation of expiratory phase of breathing.Cardiac exam revealed the PMI to be normally situated and sized. The rhythm was regular and no extrasystoles were noted during several minutes of auscultation. The first and second heart sounds were normal and physiologic splitting of the second heart sound was noted. There were no murmurs, rubs, clicks, or gallops.Abdominal exam revealed normal bowel sounds. The abdomen was soft, non- tender, and without masses, organomegaly, or appreciable enlargement of the abdominal aorta.Examination of the extremities revealed easily palpable radial, femoral and pedal pulses. There was no cyanosis, clubbing or edema. - Labs CBC & Chem 7: 08/14/16 05:51 08/14/16 11:31 Labs: Abnormal Lab Results - Last 24 Hours (Table) 08/13/16 08/13/16 08/14/16 Range/Units 17:17 20:37 05:47 WBC (3.8-10.6) k/uL RDW (11.5-15.5) % Neutrophils # (Manual) (1.3-7.7) k/uL Monocytes # (Manual) (0-1.0) k/uL ABG pH (7.35-7.45) ABG pCO2 (35-45) mmHg ABG pO2 (83-108) mmHg ABG O2 Saturation (94-97) % Carbon Dioxide 21 L (22-30) mmol/L BUN 35 H (9-20) mg/dL Creatinine 1.70 H (0.66-1.25) mg/dL Glucose 150 H (74-99) mg/dL POC Glucose (mg/dL) 134 H 137 H (75-99) mg/dL Urine Protein (Negative) Urine Blood (Negative) Urine WBC (0-5) /hpf Hyaline Casts (0-2) /lpf Urine Mucus (None) /hpf 08/14/16 08/14/16 08/14/16 Range/Units 05:51 05:51 09:21 WBC 23.1 H (3.8-10.6) k/uL RDW 16.6 H (11.5-15.5) % Neutrophils # (Manual) 19.6 H (1.3-7.7) k/uL Monocytes # (Manual) 1.8 H (0-1.0) k/uL ABG pH (7.35-7.45) ABG pCO2 (35-45) mmHg ABG pO2 (83-108) mmHg ABG O2 Saturation (94-97) % Carbon Dioxide (22-30) mmol/L BUN (9-20) mg/dL Creatinine (0.66-1.25) mg/dL Glucose (74-99) mg/dL POC Glucose (mg/dL) 145 H 147 H (75-99) mg/dL Urine Protein (Negative) Urine Blood (Negative) Urine WBC (0-5) /hpf Hyaline Casts (0-2) /lpf Urine Mucus (None) /hpf 08/14/16 08/14/16 08/14/16 Range/Units 10:00 10:00 12:17 WBC (3.8-10.6) k/uL RDW (11.5-15.5) % Neutrophils # (Manual) (1.3-7.7) k/uL Monocytes # (Manual) (0-1.0) k/uL ABG pH 7.27 L (7.35-7.45) ABG pCO2 49 H (35-45) mmHg ABG pO2 110 H (83-108) mmHg ABG O2 Saturation 97.5 H (94-97) % Carbon Dioxide (22-30) mmol/L BUN (9-20) mg/dL Creatinine (0.66-1.25) mg/dL Glucose (74-99) mg/dL POC Glucose (mg/dL) 156 H (75-99) mg/dL Urine Protein Trace H (Negative) Urine Blood Small H (Negative) Urine WBC 7 H (0-5) /hpf Hyaline Casts 24 H (0-2) /lpf Urine Mucus Rare H (None) /hpf Microbiology - Last 24 Hours (Table) 08/14/16 10:00 Urine Culture - Preliminary Urine,Catheterized Assessment and Plan Plan: 1 Acute respiratory failure requiring intubation and mechanical ventilation. This is secondary to COPD exacerbation and tracheobronchitis, strongly doubt pneumonia. 2 history of laryngeal cancer and previous total laryngectomy and previous tracheotomy. 3 acute kidney injury 4 history of congestive heart failure. Recommendation: Patient will remain on mechanical ventilation for now, and we will address weaning probably in the next 24-48 hours. In the meantime continue bronchial dilators, empiric antibiotics, and GI and DVT prophylaxis. Time with Patient: Greater than 30
[2016-08-14 18:02] LABS: Glucose,Whole Blood 160 mg/dL (75-99)
[2016-08-14] MEDS ORDERED: POTASSIUM CHLORIDE ORAL LIQUID 40 MEQ/30 ML CUP NG-TUBE SCH (19:00)
[2016-08-14] MEDS ORDERED: AZITHROMYCIN 250 MG TAB PO SCH (20:29)
[2016-08-14] MEDS: LEVOTHYROXINE 100 MCG TAB PO SCH (20:34)
[2016-08-14] MEDS: POTASSIUM CHLORIDE ORAL LIQUID 40 MEQ/30 ML CUP NG-TUBE SCH ×2 (22:23→23:57)
[2016-08-14 23:56] LABS: Glucose,Whole Blood 146 mg/dL (75-99)
[2016-08-15] MEDS: DILTIAZEM ORAL 30 MG TAB PO SCH ×2 (00:18→08:36)
[2016-08-15] MEDS: PROPOFOL 500 MG in EMPTY BAG 1 BAG IV SCH ×5 (01:14→20:16)
[2016-08-15] MEDS: SODIUM CHLORIDE 0.45% 1,000 ML IV SCH ×2 (03:47→18:02)
[2016-08-15 05:21] LABS: Anisocytosis Slight; Aty Lym Flag Marked; CH 32.2; CHCM 34.1; HCT 39.1 % (39.0-53.0); HDW 3.86; HGB 12.9 gm/dL (13.0-17.5); Large Platelets Flag Moderate; MCH 31.4 pg (25.0-35.0); MCV 95.3 fL (80.0-100.0); Mean Platelet Volume 11.7; Poikilocytosis Slight; RDW 16.9 % (11.5-15.5); WBC 17.6 k/uL (3.8-10.6); WBC (Perox) 18.05
[2016-08-15] MEDS: methylPREDNISolone SOD SUCCI 125 MG/2 ML VIAL IV SCH ×3 (05:35→18:03)
[2016-08-15 05:39] LABS: Calcium 8.2 mg/dL (8.4-10.2); Magnesium 2.3 mg/dL (1.6-2.3); Phosphorous 2.6 mg/dL (2.5-4.5); Potassium 3.8 mmol/L (3.5-5.1)
[2016-08-15 05:39] LABS: Glucose,Whole Blood 144 mg/dL (75-99)
[2016-08-15] MEDS: INSULIN LISPRO (humaLOG) 300 UNIT/3 ML VIAL SQ SCH ×3 (05:39→18:12)
[2016-08-15 06:07] LABS: Add Differential Manual Differential
[2016-08-15 06:08] LABS: Manual Review Performed; Nucleated Red Blood Cells 0 /100 WBC (0-0); Total Cells Counted 100
[2016-08-15 06:09] LABS: Large Platelets Present
[2016-08-15] MEDS ORDERED: POTASSIUM CHLORIDE ORAL LIQUID 40 MEQ/30 ML CUP NG-TUBE SCH ×3 (06:59→19:00)
--- NOTE | 2016-08-15 07:47 | PCN ---
DATE OF PROCEDURE: PROCEDURE: Placement of a tracheostomy tube/4 .0 Shiley tube. PREOPERATIVE DIAGNOSIS: Impending respiratory failure secondary to chronic obstructive pulmonary disease. POSTOPERATIVE DIAGNOSIS: Impending respiratory failure secondary to chronic obstructive pulmonary disease. ANESTHESIA USED: Patient was given morphine sulfate 4 mg IV push prior to the procedure. DESCRIPTION OF PROCEDURE: Patient was placed in a supine position. Attempts were made to place a size 6 Shiley tube in the stoma; however, attempts have failed because the area was too narrow for placement of a size 6 Shiley. Then, I proceeded using a size 4 Shiley with a cuff, and this was lubricated with Surgilube and advanced through the stoma down to the area of the trachea. The cuff was inflated, and the tracheostomy was connected to mechanical ventilation. The procedure was well tolerated and no evidence of any immediate complications.
--- NOTE | 2016-08-15 08:25 | PN ---
DATE OF SERVICE: 08/14/2016 Mr. Portillo is a 61-year-old male with known history of laryngeal cancer, status post tracheostomy in 2010 and laryngectomy post radiation and COPD, came to the hospital with complaints of difficulty breathing for the past 4 days. Patient was being treated for acute chronic obstructive pulmonary disease exacerbation and tracheobronchitis. Patient went into acute respiratory failure today and respiratory distress this morning and was transferred to ICU. Patient has tracheostomy. The patient is currently being mechanically ventilated with size 4 cannula. Otherwise the patient is continued on antibiotics in the form of levofloxacin and chest x-ray today showed stable subsegmental right lower lobe infiltrate or atelectasis. Currently, patient is mechanically ventilated and sedated. Current medications reviewed which include DuoNeb, Pulmicort, Peridex, Cardizem, Lovenox, Humalog, lactulose, levofloxacin, Levothroid, Solu-Medrol, Protonix, propofol and zolpidem. PHYSICAL EXAMINATION: A 61-year-old male lying in the bed, currently sedated and intubated. VITALS: Blood pressure is 133/74, pulse is 88, respirations 23, pulse ox 95% on 40% FiO2. HEENT: Atraumatic, normocephalic. Neck is supple. Tracheostomy is in place. CVS: S1, S2 heard. No murmurs, no gallop. LUNGS: Bilateral air entry is present. Expiratory wheezing positive. ABDOMEN: Soft. Bowel sounds are present. ASSISTANT AT SURGERY: Patient is currently sedated and intubated. EXTREMITIES: No edema. Pulses palpable bilaterally. No clubbing or cyanosis. PSYCHIATRIC: Could not be assessed completely. LABORATORY DATA: WBC 23.1, hemoglobin 15.1, platelets 260. Sodium 139, potassium 3.7, chloride 104, bicarb is 24, BUN 35, creatinine 1.7. UA showed negative for infection. IMPRESSION: 1. Acute hypoxic respiratory failure secondary to chronic obstructive pulmonary disease exacerbation, currently on mechanical ventilation. 2. Acute tracheobronchitis, possible right lower lobe pneumonia. 3. History of laryngeal cancer, status post laryngectomy and chemoradiation and tracheostomy in 2010. 4. Acute kidney injury, most likely prerenal. Creatinine level stable at 1.7. 5. Severe hypokalemia, improved. 6. Leukocytosis, likely due to steroids with underlying infection. 7. Elevated CPK level. 8. History of congestive heart failure with low normal ejection fraction. 9. Sinus tachycardia, improved. Cardizem CD 2 p.o. Seen by Cardiology. DISCUSSION AND PLAN: Patient will be continued on mechanical ventilation, continue with IV steroids and breathing treatments and antibiotics. Cardiology and Pulmonology are following the patient. Will follow up closely in the ICU. Further recommendations based on the clinical course.
[2016-08-15] MEDS: ENOXAPARIN 40 MG/0.4 ML SYRINGE SQ SCH (08:36)
[2016-08-15] MEDS: CHLORHEXIDINE GLUCONATE 15 ML CUP MUCOUS MEM SCH ×2 (08:36→21:46)
[2016-08-15] MEDS: LACTULOSE 20 GM/30 ML CUP PO SCH (08:36)
[2016-08-15] MEDS: PANTOPRAZOLE 40 MG/10 ML VIAL IV SCH (08:36)
--- NOTE | 2016-08-15 08:55 | XR ---
EXAMINATION TYPE: XR chest 1V portable DATE OF EXAM: 08/15/2016 6:51 AM COMPARISON: 08/14/2016 HISTORY: Shortness of breath TECHNIQUE: Single frontal view of the chest is obtained. FINDINGS: Subsegmental changes at the right lung base. Postsurgical change overlying the soft tissue s of neck and there is a tracheostomy tube with the tip overlying the thoracic inlet. Approximately 4 .4 cm above meghan. Cardiomegaly and underlying COPD noted. Arthropathy of the shoulders. No pneumoth orax. IMPRESSION: 1. Stable subsegmental right lower lobe infiltrate or atelectasis. Mild venous congestion not exclude d. 2. Tracheostomy tube seen with the tip 4.4 cm above meghan 3. COPD and cardiomegaly
[2016-08-15] MEDS: BUDESONIDE 0.5 MG/2 ML NEBU INHALATION SCH ×2 (09:21→20:01)
[2016-08-15] MEDS: IPRATROPIUM-ALBUTEROL 3 ML NEB INHALATION SCH ×4 (09:21→20:01)
--- NOTE | 2016-08-15 10:36 | CDI ---
In responding to this query, please exercise your independent professional judgment. The [facility] Coding Staff and Clinical Documentation Specialists appreciate your assistance in clarifying documentation, maintaining compliance with coding guidelines, accurately documenting patients condition and capturing severity of illness. The fact that a question is asked does not imply that any particular answer is desired or expected. Communication forms are a method of clarifying documentation and are not made part of the Legal Health Record. Thank you in advance for your clarification. Last Revision, September 2015 Oscar Porter [address] [place] [address] Documentation Clarification Form Date: 08/15/2016 10:23:00 AM From: Olivia Kruger Admit Date: 08/12/2016 5:59:00 PM Patient Name: Adam Portillo Visit Number: [id number] Dr. Christianne Johnson/Dr Leoncio Win History of CHF is documented in the H&P and progress note on 08/14. History/Risk Factors: Hypertension Laryngeal Cancer Thyroid disorder Exsmoker Clinical Indicators: BNP: not available Echocardiogram Results on 08/14/2016: ef 50-55%, mild left ventricular hypertrophy, no evidence of pulmonary htn Chest X Ray: on admission shows 'no gross heart failure' Treatment: Home meds include: PO Lasix 40 mg TID, PO Aldactone 50 mg TID Consults: Cardiology In your professional opinion, can you please clarify the type of CHF if known? Chronic Systolic CHF Chronic Diastolic CHF Chronic Systolic and Diastolic CHF Unable to determine Other, please specify Please document in your progress notes and discharge summary in order to capture severity of illness and risk of mortality. Include clinical findings that support your diagnosis. FYI: Press F11 to launch patient chart. Place X here if this finding has no clinical significance, is not applicable or if you are not able to provide any additional documentation. MTDD
--- NOTE | 2016-08-15 10:37 | P.PN ---
Subjective Principal diagnosis: Acute exacerbation of COPD 61-year-old male patient with known history of meningeal cancer and COPD. The patient was diagnosed having laryngeal cancer approximately 4 years ago and he was treated with adjuvant/neoadjuvant chemotherapy following that he underwent a total laryngectomy at [facility]. This was followed by radiation therapy. S/P Valve was attempted to be placed on multiple occasions however this is not helpful and the speech and the valve Dislodging. Currently the Patient Is in the Hospital for Increased Shortness of Breath. The patient is known to have COPD. He quit smoking approximately 4 years ago. The patient has been using budesonide neb last treatment twice a day. He has no home oxygen. He was living his life normally and approximately 3 days ago started having increased chest congestion, shortness of breath and wheezing. He felt his chest was congested and he was getting plugged with mucus. Attempts to suction these mucous plugs were unsuccessful both at home and here in the hospital. Ultimately he was able to take out the small pieces of bloody mucoid secretions yesterday. His chest x-ray shows COPD otherwise there is no clearcut airspace disease or pneumonias. No chest pain. He has some impairment his renal function probably secondary to an acute kidney injury. His potassium level is also low and this needs to be replaced. No change in mental status. No nausea or vomiting. No history of any major swelling in the lower extremities. This is his first hospitalization over the past several years for any breathing complications. Otherwise this patient has been doing well. Patient was reevaluated today on 08/14/2016, apparently the patient developed significant and profound shortness of breath earlier today. I was notified by the nurse about his condition, and I have made arrangements for the patient to transfer to the ICU. Upon arrival to the ICU, the patient was noted to be in significant respiratory distress, and needed to be intubated. However considering the patient has only a stoma, I attempted to place a size 6 tracheostomy cuffed Shiley tube, but could not pass it all the way down. However I was able to pass a size 4 Shiley since the stoma was quite narrow. And I was able to connect that the mechanical ventilation and patient was ventilated easily. Cuff was inflated, and there was minimal volume loss. However ABG post intubation and post placement on mechanical ventilation showed a pO2 of 110 pCO2 of 49 and pH of 7.27 and this was on a 50% FiO2 with tidal volume of 500 and PEEP of 5. Rate was 20. Patient had a venous Doppler upon arrival to the ICU and it was negative for DVT this was done because of asymmetric swelling noted in the lower extremities. Chest x-ray showed some subsegmental atelectasis or possibly infiltrates in the right lower lobe and there was evidence of COPD and cardiomegaly. CBC showed leukocytosis with WBC count of 23.1 hemoglobin was 15.1 renal profile was abnormal with a BUN of 35 creatinine of 1.70 Patient was reevaluated today on 08/15/2016, remains on mechanical ventilation, and he is on 40% FiO2, with tidal volume of 550, respiratory rate of 20, and PEEP of 5. ABG was reviewed, and no changes were made in the vent settings. As a matter of fact I plan to hold sedation today, give the patient a weaning trial utilizing pressure support and CPAP, and if tolerated well I would basically proceed to trach collar. Chest x-ray showed mostly atelectasis at the bases, difficult to rule out early infiltrate in the right lower lobe there is also mild venous congestion, and there is evidence of COPD and cardiomegaly. Patient is presently on Levaquin empirically. CBC showed improvement in the leukocytosis with WBC count of 17.6. Hemoglobin is 12.9. Renal profile remains abnormal with a creatinine of 1.70 electrolytes are normal. Bicarb is 18. Influenza screen was negative. Medications were all reviewed patient remains on bronchodilators antibiotics and steroids. Objective - Vital Signs Vital signs: Vital Signs Temp 97.7 F 08/15/16 08:00 Pulse 82 08/15/16 10:00 Resp 20 08/15/16 10:00 BP 99/59 08/15/16 10:00 Pulse Ox 94 L 08/15/16 10:00 Intake & Output 08/14/16 08/15/16 08/15/16 18:59 06:59 18:59 Intake Total 7827.891 1197.981 433.867 Output Total 629 670 205 Balance 1172.370 544.981 228.867 Weight 115.4 kg Intake: IV 935 310 Sodium Chloride 0.45% 1, 825 300 000 ml @ 75 mls/hr IV . [id number] [facility] Rx#:[id number] Sodium Chloride 0.9% 1, 110 10 000 ml @ 999 mls/hr IV . Q1H1M [facility] Rx#:[id number] Intake, IV Titration 1721.370 199.981 43.867 Amount Propofol 500 mg In Empty 46.370 124.981 43.867 Bag 1 bag @ Titrate IV . Q0M [facility] Rx#:[id number] Sodium Chloride 0.45% 1, 675 75 000 ml @ 75 mls/hr IV . [id number] [facility] Rx#:[id number] Sodium Chloride 0.9% 1, 1000 000 ml @ 999 mls/hr IV . Q1H1M [facility] Rx#:[id number] Other 80 80 80 Output: Gastric Drainage 100 100 Urine 529 570 205 Other: Voiding Method Indwelling Catheter Indwelling Catheter Indwelling Catheter - Exam Physical Exam: Revealed a 61-year-old white male on mechanical ventilation, patient is being ventilated via a small tracheostomy which was inserted yesterday in the stoma. It is a size 4.0 Shiley with a cough. HEENT:[Neck is supple.] [No neck masses.] [No thyromegaly.] [No JVD.] Tracheostomy seems to be intact Chest: [Diminished breath sounds at the bases no crackles or rhonchi or wheezes. ] Cardiac Exam: [Normal S1 and S2, no S3 gallop, no murmur.] Abdomen: [Soft, nontender, no megaly, no rebound, no guarding, normal bowel sounds.] Extremities: [No clubbing, no edema, no cyanosis.] Neurological Exam: [No focal neurologic deficit.] - Labs CBC & Chem 7: 08/15/16 04:29 08/15/16 04:29 Labs: Abnormal Lab Results - Last 24 Hours (Table) 08/14/16 08/14/16 08/14/16 Range/Units 10:00 12:17 17:02 WBC (3.8-10.6) k/uL RBC (4.30-5.90) m/uL Hgb (13.0-17.5) gm/dL RDW (11.5-15.5) % Neutrophils # (Manual) (1.3-7.7) k/uL Lymphocytes # (Manual) (1.0-4.8) k/uL Monocytes # (Manual) (0-1.0) k/uL Potassium 3.1 L (3.5-5.1) mmol/L Chloride (98-107) mmol/L Carbon Dioxide (22-30) mmol/L BUN (9-20) mg/dL Creatinine (0.66-1.25) mg/dL Glucose (74-99) mg/dL POC Glucose (mg/dL) 156 H (75-99) mg/dL Calcium (8.4-10.2) mg/dL Urine Protein Trace H (Negative) Urine Blood Small H (Negative) Urine WBC 7 H (0-5) /hpf Hyaline Casts 24 H (0-2) /lpf Urine Mucus Rare H (None) /hpf 08/14/16 08/14/16 08/14/16 Range/Units 18:00 21:25 23:53 WBC (3.8-10.6) k/uL RBC (4.30-5.90) m/uL Hgb (13.0-17.5) gm/dL RDW (11.5-15.5) % Neutrophils # (Manual) (1.3-7.7) k/uL Lymphocytes # (Manual) (1.0-4.8) k/uL Monocytes # (Manual) (0-1.0) k/uL Potassium 3.4 L (3.5-5.1) mmol/L Chloride (98-107) mmol/L Carbon Dioxide (22-30) mmol/L BUN (9-20) mg/dL Creatinine (0.66-1.25) mg/dL Glucose (74-99) mg/dL POC Glucose (mg/dL) 160 H 146 H (75-99) mg/dL Calcium (8.4-10.2) mg/dL Urine Protein (Negative) Urine Blood (Negative) Urine WBC (0-5) /hpf Hyaline Casts (0-2) /lpf Urine Mucus (None) /hpf 08/15/16 08/15/16 08/15/16 Range/Units 04:29 04:29 05:38 WBC 17.6 H (3.8-10.6) k/uL RBC 4.10 L (4.30-5.90) m/uL Hgb 12.9 L (13.0-17.5) gm/dL RDW 16.9 H (11.5-15.5) % Neutrophils # (Manual) 15.8 H (1.3-7.7) k/uL Lymphocytes # (Manual) 0.4 L (1.0-4.8) k/uL Monocytes # (Manual) 1.4 H (0-1.0) k/uL Potassium (3.5-5.1) mmol/L Chloride 109 H (98-107) mmol/L Carbon Dioxide 18 L (22-30) mmol/L BUN 39 H (9-20) mg/dL Creatinine 1.70 H (0.66-1.25) mg/dL Glucose 136 H (74-99) mg/dL POC Glucose (mg/dL) 144 H (75-99) mg/dL Calcium 8.2 L (8.4-10.2) mg/dL Urine Protein (Negative) Urine Blood (Negative) Urine WBC (0-5) /hpf Hyaline Casts (0-2) /lpf Urine Mucus (None) /hpf Microbiology - Last 24 Hours (Table) 08/14/16 10:00 Urine Culture - Preliminary Urine,Catheterized Assessment and Plan Plan: 1 Acute respiratory failure requiring intubation and mechanical ventilation. This is secondary to COPD exacerbation and tracheobronchitis, strongly doubt pneumonia. 2 history of laryngeal cancer and previous total laryngectomy and previous tracheotomy. 3 acute kidney injury 4 history of congestive heart failure. Recommendation: My plan today is to continue present treatment plan including bronchodilators antibiotics and steroids, will try a weaning trial using pressure support and CPAP, and if tolerated I will switch him to a trach collar. In the meantime we'll address his nutrition if the patient is not weaned and extubated today, may start feeding via nasogastric tube and we'll ask for nutritional consultation. In the meantime continue DVT and GI prophylaxis. Prognosis is definitely poor and guarded considering his multiple comorbidities and severe COPD as well as previous history of laryngeal cancer. Patient is status post total laryngectomy. Critical care time is 32 minutes. Time with Patient: Greater than 30
[2016-08-15 12:00] LABS: Glucose,Whole Blood 136 mg/dL (75-99)
[2016-08-15 12:32] LABS: ABG Base Excess -3.3 mmol/L; ABG HCO3 21 mmol/L (21-25); ABG PCO2 35 mmHg (35-45); ABG PO2 69 mmHg (83-108); ABG TCO2 22 mmol/L (19-24)
--- NOTE | 2016-08-15 16:53 | PN ---
A 61-year-old gentleman with a history of tracheostomy, COPD, respiratory insufficiency that we were involved in the care of because of tachycardia. His heart rate is better controlled. Heart rate is in the 70s. Blood pressure is 94/50, respiratory rate is 20. Chest reveals diminished air entry bilaterally. Heart reveals first and second heart sounds. No gallop. Extremities did not reveal edema. Peripheral pulses are palpable. Labs show hemoglobin of 12.9, platelet count is 157. Potassium is 3.8. BUN is 39. Creatinine is 1.7. ASSESSMENT: 1. Respiratory failure, status post tracheostomy. 2. Sinus tachycardia. PLAN: Patient will continue with current medical therapy.
[2016-08-15] MEDS ORDERED: LEVOFLOXACIN 750MG-D5W PMX 750 MG in DEXTROSE/WATER 1 150ML.BAG IVPB SCH (17:00)
[2016-08-15 18:10] LABS: Glucose,Whole Blood 134 mg/dL (75-99)
[2016-08-15] MEDS: LEVOTHYROXINE 100 MCG TAB PO SCH (21:47)
--- NOTE | 2016-08-15 22:48 | PN ---
SUBJECTIVE DATA/HOSPITAL COURSE: This is a 61-year-old gentleman with history of laryngeal cancer who underwent chemotherapy. Patient had a laryngotomy. Patient apparently had a tracheotomy at that time. Patient thereafter had some reconstructive surgery and tracheotomy was attempted to be decannulized; however, patient did have radiation therapy and decannulation was not successful. Patient came into the hospital with progressive worsening of breathing difficulty. Patient apparently has a diagnosis of COPD. Multiple breathing treatments and suctioning trials were attempted; however, due to significant mucus plugs and thick secretions, patient did not improve. Patient thereafter was cannulated with a pediatric size 6 cuffed trach ( ) and was placed on the ventilator. Patient currently is on mechanical ventilation; however, he does follow commands. Apparently oral secretions have decreased at this time. Patient did undergo an influenza screen which was negative. Patient has been undergoing steroid therapy and bronchodilator inhalation. OBJECTIVE DATA/PHYSICAL EXAM: Temperature 97.7, heart rate 82, respiratory rate 20. Blood pressure is 99/59. Saturating 94% on 50% FiO2. GENERAL APPEARANCE: Patient is able to follow commands. HEENT: Atraumatic, normocephalic. Pupils are equal, round and reactive to light and accommodation. Neck is supple. There is a previous skin grafted noted. A Shiley size 6 is noted. LUNGS: Diminished breath sounds. No crackles or wheezing appreciated. HEART: S1, S2 heard. Regular rate and rhythm. No murmurs appreciated. ABDOMEN: Soft, nontender. No organomegaly. NEUROLOGIC EXAM: No focal motor or sensory deficits noted. He does follow commands at this time. LABORATORY DATA: Hemoglobin 12.9, hematocrit 39.1, white count 17.6, platelets 157. Sodium 139, potassium 3.8, chloride 109, bicarb 18. BUN 39, creatinine of 1.70. ASSESSMENT AND PLAN: 1. Acute hypoxic hypercapnic respiratory failure, likely secondary to an acute exacerbation of chronic obstructive pulmonary disease from an acute tracheobronchitis. 2. History of laryngeal cancer, status post chemoradiation therapy and surgical resection. 3. Acute kidney injury, likely secondary to prerenal azotemia. No evidence of acute tubular necrosis at this time. 4. History of congestive heart failure; however, compensated at this time. No signs of the overt failure. 5. [id number] metabolic acidosis. 6. Leukocytosis, likely secondary to steroid use. 7. Hypothyroidism. PLAN: Pulmonary critical care recommendations are appreciated. Continue GI prophylaxis for high-dose steroid use. Continue antibiotic therapy. Weaning trials have been started. Patient's vitals appear to be stable at this time. Repeat laboratory values in regards to the [id number] acidosis that is likely secondary to acute kidney injury. Continue chlorhexidine washes as well.
[2016-08-16 00:09] LABS: Glucose,Whole Blood 146 mg/dL (75-99)
[2016-08-16] MEDS: INSULIN LISPRO (humaLOG) 300 UNIT/3 ML VIAL SQ SCH ×5 (00:09→23:21)
[2016-08-16] MEDS: methylPREDNISolone SOD SUCCI 125 MG/2 ML VIAL IV SCH ×5 (00:09→23:22)
[2016-08-16] MEDS: PROPOFOL 500 MG in EMPTY BAG 1 BAG IV SCH ×5 (00:52→20:15)
[2016-08-16 04:52] LABS: Anisocytosis Slight; Aty Lym Flag Marked; CH 31.6; CHCM 32.5; HCT 38.2 % (39.0-53.0); HDW 3.66; HGB 12.5 gm/dL (13.0-17.5); Hypochromasia Slight; Large Platelets Flag Moderate; MCH 32.1 pg (25.0-35.0); MCHC 32.7 g/dL (31.0-37.0); MCV 98.3 fL (80.0-100.0); Macrocytosis Slight; Mean Platelet Volume 11.6; Poikilocytosis Slight; RBC 3.89 m/uL (4.30-5.90); RDW 16.7 % (11.5-15.5); WBC 13.7 k/uL (3.8-10.6); WBC (Perox) 15.43
[2016-08-16 05:02] LABS: Anion Gap 9 mmol/L; Blood Urea Nitrogen 36 mg/dL (9-20); Calcium 7.7 mg/dL (8.4-10.2); Carbon Dioxide 17 mmol/L (22-30); Chloride 109 mmol/L (98-107); Glucose 138 mg/dL (74-99); Magnesium 2.5 mg/dL (1.6-2.3); Non-African American GFR(MDRD) 56 (>60 ml/min/1.73 sqM); Phosphorous 2.2 mg/dL (2.5-4.5); Potassium 3.9 mmol/L (3.5-5.1); Sodium 135 mmol/L (137-145)
[2016-08-16 05:15] LABS: Glucose,Whole Blood 156 mg/dL (75-99)
[2016-08-16] MEDS: SODIUM CHLORIDE 0.45% 1,000 ML IV SCH ×2 (05:15→20:16)
[2016-08-16 05:40] LABS: Add Differential Manual Differential
[2016-08-16 05:43] LABS: Nucleated Red Blood Cells 0 /100 WBC (0-0); Total Cells Counted 100
[2016-08-16 05:44] LABS: Large Platelets Present; Manual Review Performed
[2016-08-16] MEDS ORDERED: POTASSIUM CHLORIDE ER 20 MEQ TAB.ER PO SCH (06:00)
[2016-08-16] MEDS: HYDROcodone/APAP 5-325MG 1 EACH TAB PO PRN (07:20)
--- NOTE | 2016-08-16 07:42 | XR ---
EXAMINATION TYPE: XR chest 1V portable DATE OF EXAM: 08/16/2016 6:49 AM COMPARISON: 08/15/2016 HISTORY: Tube placement TECHNIQUE: Single frontal view of the chest is obtained. FINDINGS: Tracheostomy tube stable. NG tube stable in position. Bilateral infiltrate and pleural eff usion seen. Postoperative change overlying the soft tissues of the neck. No pneumothorax. Heart is enlarged and t here is suggestion of COPD. Mild central congestion not excluded. Stent in the right upper quadrant n oted. IMPRESSION: 1. Stable bilateral infiltrate and pleural effusion.
[2016-08-16] MEDS ORDERED: Phosphorus Replacement Protoco 1 EACH MISC MISCELLANE PRN (07:54)
[2016-08-16] MEDS ORDERED: SODIUM PHOSPHATE 10 MMOL in SODIUM CHLORIDE 0.9% 250 ML IVPB ONE (09:00)
[2016-08-16] MEDS ORDERED: FUROSEMIDE 10 MG/ML 4 ML VIAL IV STA (09:04)
[2016-08-16] MEDS: BUDESONIDE 0.5 MG/2 ML NEBU INHALATION SCH ×2 (09:19→19:16)
[2016-08-16] MEDS: IPRATROPIUM-ALBUTEROL 3 ML NEB INHALATION SCH ×4 (09:19→19:16)
[2016-08-16] MEDS: LACTULOSE 20 GM/30 ML CUP PO SCH (09:53)
[2016-08-16] MEDS: CHLORHEXIDINE GLUCONATE 15 ML CUP MUCOUS MEM SCH ×2 (09:53→22:59)
[2016-08-16] MEDS: PANTOPRAZOLE 40 MG/10 ML VIAL IV SCH (09:53)
[2016-08-16] MEDS: ENOXAPARIN 40 MG/0.4 ML SYRINGE SQ SCH (09:53)
[2016-08-16] MEDS: PIPERACILLIN-TAZOBACTAM 3.375 GM in DEXTROSE/WATER 1 50ML.BAG IVPB SCH ×3 (09:56→23:23)
[2016-08-16 12:02] LABS: Glucose,Whole Blood 146 mg/dL (75-99)
--- NOTE | 2016-08-16 14:13 | P.PN ---
Subjective Principal diagnosis: Acute exacerbation of COPD 61-year-old male patient with known history of meningeal cancer and COPD. The patient was diagnosed having laryngeal cancer approximately 4 years ago and he was treated with adjuvant/neoadjuvant chemotherapy following that he underwent a total laryngectomy at [facility]. This was followed by radiation therapy. S/P Valve was attempted to be placed on multiple occasions however this is not helpful and the speech and the valve Dislodging. Currently the Patient Is in the Hospital for Increased Shortness of Breath. The patient is known to have COPD. He quit smoking approximately 4 years ago. The patient has been using budesonide neb last treatment twice a day. He has no home oxygen. He was living his life normally and approximately 3 days ago started having increased chest congestion, shortness of breath and wheezing. He felt his chest was congested and he was getting plugged with mucus. Attempts to suction these mucous plugs were unsuccessful both at home and here in the hospital. Ultimately he was able to take out the small pieces of bloody mucoid secretions yesterday. His chest x-ray shows COPD otherwise there is no clearcut airspace disease or pneumonias. No chest pain. He has some impairment his renal function probably secondary to an acute kidney injury. His potassium level is also low and this needs to be replaced. No change in mental status. No nausea or vomiting. No history of any major swelling in the lower extremities. This is his first hospitalization over the past several years for any breathing complications. Otherwise this patient has been doing well. Patient was reevaluated today on 08/14/2016, apparently the patient developed significant and profound shortness of breath earlier today. I was notified by the nurse about his condition, and I have made arrangements for the patient to transfer to the ICU. Upon arrival to the ICU, the patient was noted to be in significant respiratory distress, and needed to be intubated. However considering the patient has only a stoma, I attempted to place a size 6 tracheostomy cuffed Shiley tube, but could not pass it all the way down. However I was able to pass a size 4 Shiley since the stoma was quite narrow. And I was able to connect that the mechanical ventilation and patient was ventilated easily. Cuff was inflated, and there was minimal volume loss. However ABG post intubation and post placement on mechanical ventilation showed a pO2 of 110 pCO2 of 49 and pH of 7.27 and this was on a 50% FiO2 with tidal volume of 500 and PEEP of 5. Rate was 20. Patient had a venous Doppler upon arrival to the ICU and it was negative for DVT this was done because of asymmetric swelling noted in the lower extremities. Chest x-ray showed some subsegmental atelectasis or possibly infiltrates in the right lower lobe and there was evidence of COPD and cardiomegaly. CBC showed leukocytosis with WBC count of 23.1 hemoglobin was 15.1 renal profile was abnormal with a BUN of 35 creatinine of 1.70 Patient was reevaluated today on 08/15/2016, remains on mechanical ventilation, and he is on 40% FiO2, with tidal volume of 550, respiratory rate of 20, and PEEP of 5. ABG was reviewed, and no changes were made in the vent settings. As a matter of fact I plan to hold sedation today, give the patient a weaning trial utilizing pressure support and CPAP, and if tolerated well I would basically proceed to trach collar. Chest x-ray showed mostly atelectasis at the bases, difficult to rule out early infiltrate in the right lower lobe there is also mild venous congestion, and there is evidence of COPD and cardiomegaly. Patient is presently on Levaquin empirically. CBC showed improvement in the leukocytosis with WBC count of 17.6. Hemoglobin is 12.9. Renal profile remains abnormal with a creatinine of 1.70 electrolytes are normal. Bicarb is 18. Influenza screen was negative. Medications were all reviewed patient remains on bronchodilators antibiotics and steroids. Patient was reevaluated today on 08/16/2016, patient remains on mechanical ventilation, chest x-ray is worsening a bit showing more atelectasis and more infiltrates in the lower lobes bilaterally, and suspect small bilateral pleural effusions. Hence the antibiotics will be broadened and I will include Zosyn in addition to Levaquin, and the patient will be given a trial of gentle diuresis. My plan again today is to consider placing the patient on pressure support and CPAP, and if tolerated I will go proceed to trach collar. His labs were reviewed and they seem to be relatively unremarkable. Renal profile is slightly abnormal with a creatinine of 1.30. White cell count is 13.7 Objective - Vital Signs Vital signs: Vital Signs Temp 97.6 F 08/16/16 12:00 Pulse 90 08/16/16 13:10 Resp 13 08/16/16 13:00 BP 127/79 08/16/16 13:00 Pulse Ox 94 L 08/16/16 13:00 Intake & Output 08/15/16 08/16/16 08/16/16 18:59 06:59 18:59 Intake Total 8997.865 9004.453 816.424 Output Total 765 840 970 Balance 397.963 748.453 -153.576 Weight 115.4 kg 115.7 kg Intake: IV 910 900 525 Sodium Chloride 0.45% 1, 900 900 525 000 ml @ 75 mls/hr IV . [id number] [facility] Rx#:[id number] Sodium Chloride 0.9% 1, 10 000 ml @ 999 mls/hr IV . Q1H1M [facility] Rx#:[id number] Intake, IV Titration 72.963 238.453 71.424 Amount Levofloxacin 750Mg-D5w 100 Pmx 750 mg In Dextrose/ Water 1 150ml.bag @ 100 mls/hr IVPB Q48H [facility] Rx#: [id number] Propofol 500 mg In Empty 72.963 138.453 71.424 Bag 1 bag @ Titrate IV . Q0M [facility] Rx#:[id number] Tube Feeding 20 270 180 Other 160 180 40 Output: Urine 765 840 970 Other: Voiding Method Indwelling Catheter Indwelling Catheter Indwelling Catheter - Exam Physical Exam: Revealed a 61-year-old white male on mechanical ventilation, patient is being ventilated via a small tracheostomy which was inserted yesterday in the stoma. It is a size 4.0 Shiley with a cough. HEENT:[Neck is supple.] [No neck masses.] [No thyromegaly.] [No JVD.] Tracheostomy seems to be intact Chest: [Diminished breath sounds at the bases no crackles or rhonchi or wheezes. ] Cardiac Exam: [Normal S1 and S2, no S3 gallop, no murmur.] Abdomen: [Soft, nontender, no megaly, no rebound, no guarding, normal bowel sounds.] Extremities: [No clubbing, no edema, no cyanosis.] Neurological Exam: [No focal neurologic deficit.] - Labs CBC & Chem 7: 08/16/16 04:23 08/16/16 09:20 Labs: Abnormal Lab Results - Last 24 Hours (Table) 08/15/16 08/16/16 08/16/16 Range/Units 18:08 00:08 04:23 WBC 13.7 H (3.8-10.6) k/uL RBC 3.89 L (4.30-5.90) m/uL Hgb 12.5 L (13.0-17.5) gm/dL Hct 38.2 L (39.0-53.0) % RDW 16.7 H (11.5-15.5) % Plt Count 148 L (150-450) k/uL Neutrophils # (Manual) 12.2 H (1.3-7.7) k/uL Sodium (137-145) mmol/L Chloride (98-107) mmol/L Carbon Dioxide (22-30) mmol/L BUN (9-20) mg/dL Creatinine (0.66-1.25) mg/dL Glucose (74-99) mg/dL POC Glucose (mg/dL) 134 H 146 H (75-99) mg/dL Calcium (8.4-10.2) mg/dL Phosphorus (2.5-4.5) mg/dL Magnesium (1.6-2.3) mg/dL 08/16/16 08/16/16 08/16/16 Range/Units 04:23 05:14 12:00 WBC (3.8-10.6) k/uL RBC (4.30-5.90) m/uL Hgb (13.0-17.5) gm/dL Hct (39.0-53.0) % RDW (11.5-15.5) % Plt Count (150-450) k/uL Neutrophils # (Manual) (1.3-7.7) k/uL Sodium 135 L (137-145) mmol/L Chloride 109 H (98-107) mmol/L Carbon Dioxide 17 L (22-30) mmol/L BUN 36 H (9-20) mg/dL Creatinine 1.30 H (0.66-1.25) mg/dL Glucose 138 H (74-99) mg/dL POC Glucose (mg/dL) 156 H 146 H (75-99) mg/dL Calcium 7.7 L (8.4-10.2) mg/dL Phosphorus 2.2 L (2.5-4.5) mg/dL Magnesium 2.5 H (1.6-2.3) mg/dL Microbiology - Last 24 Hours (Table) 08/15/16 17:15 Gram Stain - Preliminary Sputum Sputum Culture - Preliminary 08/14/16 10:00 Urine Culture - Final Urine,Catheterized Assessment and Plan Plan: 1 Acute respiratory failure requiring intubation and mechanical ventilation. This is secondary to COPD exacerbation and tracheobronchitis, chest x-ray today is suggestive of possible pneumonia, could very well be a gram-negative pneumonia considering his underlying COPD. Hence I broaden the spectrum of antibiotics, and now he is on Zosyn and Levaquin. 2 history of laryngeal cancer and previous total laryngectomy and previous tracheotomy. 3 acute kidney injury 4 history of congestive heart failure. Recommendation: My plan today is to continue present treatment plan including bronchodilators antibiotics and steroids, will try a weaning trial using pressure support and CPAP, and if tolerated I will switch him to a trach collar. In the meantime we'll address his nutrition if the patient is not weaned and extubated today, may start feeding via nasogastric tube and we'll ask for nutritional consultation. In the meantime continue DVT and GI prophylaxis. Prognosis is definitely poor and guarded considering his multiple comorbidities and severe COPD as well as previous history of laryngeal cancer. Patient is status post total laryngectomy. Critical care time is 31 minutes. Time with Patient: Greater than 30
--- NOTE | 2016-08-16 14:51 | PN ---
This is a 61-year-old gentleman with tracheostomy, COPD, respiratory failure. Still has not been weaned off. On exam, heart rate is 90, blood pressure is 127/79, respiratory rate is 18. Chest exam reveals diminished air entry at the bases. Heart exam reveals first and second heart sounds. No gallop. Exam of the extremities reveals trace edema. Peripheral pulses are felt. The patient is on Lovenox, IV Lasix. He is on metoprolol but we are holding due to hypotension.
[2016-08-16 18:02] LABS: Glucose,Whole Blood 136 mg/dL (75-99)
--- NOTE | 2016-08-16 18:07 | P.PN ---
Subjective 71-year-old gentleman with history of laryngeal cancer underwent chemoradiation and surgical intervention in the past comes in to the hospital with progressive worsening of breathing difficulty associated with cough that has been nonproductive in nature. Patient was noted to have diffuse rhonchi and initial evaluation. Patient was thereafter required to be decannulated on the previous tracheotomy site. This was done with a size 4 shiley and was cough. Patient was started on empiric antibiotic therapy. Breathing treatments and steroids were started. Thereafter however patient continues to have thick mucous secretions through the ET tube. Weaning trials were attempted today however patient did not tolerated. Patient was currently on minimal sedation with propofol. However apparently off sedation patient has multiple episodes of tachypnea likely associated with anxiety. No other overnight events reported. Objective - Vital Signs Vital signs: Vital Signs Temp 98.1 F 08/16/16 16:00 Pulse 74 08/16/16 16:54 Resp 14 08/16/16 16:00 BP 115/65 08/16/16 16:00 Pulse Ox 95 08/16/16 16:00 Intake & Output 08/15/16 08/16/16 08/16/16 18:59 06:59 18:59 Intake Total 7122.777 9757.453 1382.171 Output Total 449 336 6158 Balance 397.963 748.453 -187.829 Weight 115.4 kg 115.7 kg Intake: IV 910 900 750 Sodium Chloride 0.45% 1, 900 900 750 000 ml @ 75 mls/hr IV . [id number] [facility] Rx#:[id number] Sodium Chloride 0.9% 1, 10 000 ml @ 999 mls/hr IV . Q1H1M [facility] Rx#:[id number] Intake, IV Titration 72.963 238.453 382.171 Amount Levofloxacin 750Mg-D5w 100 Pmx 750 mg In Dextrose/ Water 1 150ml.bag @ 100 mls/hr IVPB Q48H [facility] Rx#: [id number] Piperacillin-Tazobactam 3 50 .375 gm In Dextrose/Water 1 50ml.bag @ 12.5 mls/hr IVPB Q8HR [facility] Rx#: [id number] Propofol 500 mg In Empty 72.963 138.453 82.171 Bag 1 bag @ Titrate IV . Q0M [facility] Rx#:[id number] Sodium Phosphate 10 mmol 250 In Sodium Chloride 0.9% 250 ml @ 125 mls/hr IVPB ONCE ONE Rx#:[id number] Tube Feeding 20 270 210 Other 160 180 40 Output: Urine 208 605 5794 Other: Voiding Method Indwelling Catheter Indwelling Catheter Indwelling Catheter # Voids 350 - Exam Gen. appearance oriented times does follow commands with signs Neck patient has a cuffed size 4 pediatric tube Lungs diffuse rhonchi air movement appreciated Heart S1-S2 heard regular rate and rhythm no murmurs. Abdomen is soft nontender no organomegaly Lower extremities no edema noted. - Labs CBC & Chem 7: 08/16/16 04:23 08/16/16 09:20 Labs: Abnormal Lab Results - Last 24 Hours (Table) 08/15/16 08/16/16 08/16/16 Range/Units 18:08 00:08 04:23 WBC 13.7 H (3.8-10.6) k/uL RBC 3.89 L (4.30-5.90) m/uL Hgb 12.5 L (13.0-17.5) gm/dL Hct 38.2 L (39.0-53.0) % RDW 16.7 H (11.5-15.5) % Plt Count 148 L (150-450) k/uL Neutrophils # (Manual) 12.2 H (1.3-7.7) k/uL Sodium (137-145) mmol/L Chloride (98-107) mmol/L Carbon Dioxide (22-30) mmol/L BUN (9-20) mg/dL Creatinine (0.66-1.25) mg/dL Glucose (74-99) mg/dL POC Glucose (mg/dL) 134 H 146 H (75-99) mg/dL Calcium (8.4-10.2) mg/dL Phosphorus (2.5-4.5) mg/dL Magnesium (1.6-2.3) mg/dL 08/16/16 08/16/16 08/16/16 Range/Units 04:23 05:14 12:00 WBC (3.8-10.6) k/uL RBC (4.30-5.90) m/uL Hgb (13.0-17.5) gm/dL Hct (39.0-53.0) % RDW (11.5-15.5) % Plt Count (150-450) k/uL Neutrophils # (Manual) (1.3-7.7) k/uL Sodium 135 L (137-145) mmol/L Chloride 109 H (98-107) mmol/L Carbon Dioxide 17 L (22-30) mmol/L BUN 36 H (9-20) mg/dL Creatinine 1.30 H (0.66-1.25) mg/dL Glucose 138 H (74-99) mg/dL POC Glucose (mg/dL) 156 H 146 H (75-99) mg/dL Calcium 7.7 L (8.4-10.2) mg/dL Phosphorus 2.2 L (2.5-4.5) mg/dL Magnesium 2.5 H (1.6-2.3) mg/dL 08/16/16 Range/Units 18:00 WBC (3.8-10.6) k/uL RBC (4.30-5.90) m/uL Hgb (13.0-17.5) gm/dL Hct (39.0-53.0) % RDW (11.5-15.5) % Plt Count (150-450) k/uL Neutrophils # (Manual) (1.3-7.7) k/uL Sodium (137-145) mmol/L Chloride (98-107) mmol/L Carbon Dioxide (22-30) mmol/L BUN (9-20) mg/dL Creatinine (0.66-1.25) mg/dL Glucose (74-99) mg/dL POC Glucose (mg/dL) 136 H (75-99) mg/dL Calcium (8.4-10.2) mg/dL Phosphorus (2.5-4.5) mg/dL Magnesium (1.6-2.3) mg/dL Microbiology - Last 24 Hours (Table) 08/15/16 17:15 Gram Stain - Preliminary Sputum Sputum Culture - Preliminary 08/14/16 10:00 Urine Culture - Final Urine,Catheterized Assessment and Plan Plan: #1 acute hypoxic hypercapnic respiratory failure sec A secondary to acute exacerbation of COPD from an acute episode of tracheobronchitis. #2 history of laryngeal cancer status post chemoradiation and surgical intervention #3 acute kidney injury that is improving #4 history of mildly decompensated diastolic heart failure #5 non-anion gap metabolic acidosis #6 leukocytosis #Hypothyroidism Plan Continue ongoing care with the steroid therapy and breathing treatments. Weaning trials as recommended by the forensic science technician. Pulmonary hygiene is recommended. GI and DVT prophylaxis
[2016-08-16] MEDS: LORazepam 2 MG/ML SYRINGE IV PRN ×2 (20:16→23:23)
[2016-08-16] MEDS: LEVOTHYROXINE 100 MCG TAB PO SCH (22:59)
[2016-08-16 23:23] LABS: Glucose,Whole Blood 176 mg/dL (75-99)
[2016-08-17 05:06] LABS: Anisocytosis Slight; Aty Lym Flag Marked; CH 31.5; CHCM 32.1; HCT 43.9 % (39.0-53.0); HDW 3.56; HGB 14.2 gm/dL (13.0-17.5); Hypochromasia Slight; Large Platelets Flag Marked; MCH 32.1 pg (25.0-35.0); MCHC 32.4 g/dL (31.0-37.0); MCV 99.1 fL (80.0-100.0); Macrocytosis Slight; Mean Platelet Volume 12.5; Poikilocytosis Slight; RBC 4.43 m/uL (4.30-5.90); RDW 16.7 % (11.5-15.5); WBC (Perox) 18.68
[2016-08-17 05:07] LABS: Anion Gap 8 mmol/L; Blood Urea Nitrogen 42 mg/dL (9-20); Calcium 8.3 mg/dL (8.4-10.2); Carbon Dioxide 20 mmol/L (22-30); Chloride 115 mmol/L (98-107); Glucose 172 mg/dL (74-99); Magnesium 2.8 mg/dL (1.6-2.3); Non-African American GFR(MDRD) 56 (>60 ml/min/1.73 sqM); Phosphorous 2.8 mg/dL (2.5-4.5); Potassium 4.2 mmol/L (3.5-5.1); Sodium 143 mmol/L (137-145)
[2016-08-17 05:32] LABS: Glucose,Whole Blood 163 mg/dL (75-99)
[2016-08-17 05:43] LABS: Add Differential Manual Differential
[2016-08-17 05:46] LABS: Manual Review Performed; Nucleated Red Blood Cells 0 /100 WBC (0-0); Total Cells Counted 100
[2016-08-17 05:49] LABS: Polychromasia Present
[2016-08-17 05:50] LABS: Large Platelets Present
[2016-08-17] MEDS: INSULIN LISPRO (humaLOG) 300 UNIT/3 ML VIAL SQ SCH ×3 (06:34→18:08)
[2016-08-17] MEDS: LORazepam 2 MG/ML SYRINGE IV PRN ×2 (06:34→21:05)
[2016-08-17] MEDS: methylPREDNISolone SOD SUCCI 125 MG/2 ML VIAL IV SCH ×3 (06:35→18:06)
[2016-08-17] MEDS: PROPOFOL 500 MG in EMPTY BAG 1 BAG IV SCH ×4 (06:36→16:34)
[2016-08-17] MEDS: BUDESONIDE 0.5 MG/2 ML NEBU INHALATION SCH ×2 (07:47→19:26)
[2016-08-17] MEDS: IPRATROPIUM-ALBUTEROL 3 ML NEB INHALATION SCH ×4 (07:48→19:26)
[2016-08-17] MEDS: LACTULOSE 20 GM/30 ML CUP PO SCH (08:48)
[2016-08-17] MEDS: PIPERACILLIN-TAZOBACTAM 3.375 GM in DEXTROSE/WATER 1 50ML.BAG IVPB SCH ×2 (08:48→18:04)
[2016-08-17] MEDS: CHLORHEXIDINE GLUCONATE 15 ML CUP MUCOUS MEM SCH ×2 (08:48→21:05)
[2016-08-17] MEDS: PANTOPRAZOLE 40 MG/10 ML VIAL IV SCH (08:49)
[2016-08-17] MEDS: ENOXAPARIN 40 MG/0.4 ML SYRINGE SQ SCH (08:49)
[2016-08-17 08:56] LABS: ABG HCO3 21 mmol/L (21-25); ABG PCO2 32 mmHg (35-45); ABG PH 7.42 (7.35-7.45); ABG PO2 85 mmHg (83-108); ABG TCO2 22 mmol/L (19-24)
[2016-08-17] MEDS: SODIUM CHLORIDE 0.45% 1,000 ML IV SCH (09:00)
--- NOTE | 2016-08-17 09:05 | XR ---
EXAMINATION TYPE: XR chest 1V portable DATE OF EXAM: 08/17/2016 6:40 AM COMPARISON: 08/16/2016 HISTORY: Shortness of breath, abnormal x-ray TECHNIQUE: Single frontal view of the chest is obtained. FINDINGS: Tracheostomy tube stable. NG tube stable in position. Bilateral infiltrate and pleural eff usion seen. Postoperative change overlying the soft tissues of the neck. No pneumothorax. Heart is en larged and there is suggestion of COPD. Mild central congestion not excluded. Stent in the right uppe r quadrant noted. IMPRESSION: 1. Stable bilateral infiltrate and pleural effusion.
--- NOTE | 2016-08-17 10:59 | CDI ---
In responding to this query, please exercise your independent professional judgment. The [facility] Coding Staff and Clinical Documentation Specialists appreciate your assistance in clarifying documentation, maintaining compliance with coding guidelines, accurately documenting patients condition and capturing severity of illness. The fact that a question is asked does not imply that any particular answer is desired or expected. Communication forms are a method of clarifying documentation and are not made part of the Legal Health Record. Thank you in advance for your clarification. Last Revision, September 2015 Oscar Porter [address] [facility] [place] [address] Documentation Clarification Form Date: 08/17/2016 10:46:00 AM From: Olivia Kruger Admit Date: 08/12/2016 5:59:00 PM Patient Name: Adam Portillo Visit Number: [id number] Dr. Leoncio Win History of mildly decompensated diastolic heart failure is documented in the progress note on 08/16/2016. History/Risk Factors: Hypertension Acute Kidney Injury Acute Hypoxic Hypercapnic Respiratory Failure COPD with Tracheobronchitis Laryngeal Cancer Mechanical Ventilation Clinical Indicators: BNP: not available Echocardiogram Results: on 08/14/2016 ef 50-55% Chest X Ray: on 08/16/2016 shows 'bilateral infiltrate and pleural effusion' Treatment: IV Lasix x 1 on 08/16/2016 Consult: Cardiology, Pulmonary ICU In your professional opinion, can you please clarify the acuity and type of CHF if known during this admission? Acute Chronic Acute on Chronic AND Diastolic CHF Unable to determine Other, please specify Please document in your progress notes and discharge summary in order to capture severity of illness and risk of mortality. Include clinical findings that support your diagnosis. FYI: Press F11 to launch patient chart. Place X here if this finding has no clinical significance, is not applicable or if you are not able to provide any additional documentation. RED
[2016-08-17] MEDS: HYDROcodone/APAP 5-325MG 1 EACH TAB PO PRN (11:00)
[2016-08-17] MEDS: DILTIAZEM 125 MG in SODIUM CHLORIDE 0.9% 100 ML IV SCH ×2 (11:29→21:05)
[2016-08-17 11:55] LABS: Glucose,Whole Blood 171 mg/dL (75-99)
--- NOTE | 2016-08-17 12:24 | PN ---
A 61-year-old gentleman with respiratory failure is still on the vent. He developed tachyarrhythmia, which seems very similar to the one that he came in with, quite irregular but seems more like atrial tachyarrhythmia than atrial fibrillation. Will start him on IV Cardizem and see if this helps resolve the problem. Once the heart rate is down, we may actually put him on oral amiodarone this time. On exam, heart rate is 120 beats a minute, blood pressure is 100/70, respiratory rate is 18. Chest exam reveals diminished air entry at the bases. Heart exam reveals first and second heart sounds. No gallop. Exam of the extremities reveal chronic stasis changes and mild edema. Labs show a hemoglobin of 14.2. Potassium is 4.2. Creatinine is 1.3. ASSESSMENT: 1. Atrial tachyarrhythmia. 2. Respiratory failure. PLAN: I will start the patient on IV Cardizem at this time.
[2016-08-17] MEDS: MORPHINE SULFATE 4 MG/ML SYRINGE IVP PRN (12:27)
--- NOTE | 2016-08-17 13:00 | P.PN ---
Subjective Principal diagnosis: Acute exacerbation of COPD 61-year-old male patient with known history of meningeal cancer and COPD. The patient was diagnosed having laryngeal cancer approximately 4 years ago and he was treated with adjuvant/neoadjuvant chemotherapy following that he underwent a total laryngectomy at [facility]. This was followed by radiation therapy. S/P Valve was attempted to be placed on multiple occasions however this is not helpful and the speech and the valve Dislodging. Currently the Patient Is in the Hospital for Increased Shortness of Breath. The patient is known to have COPD. He quit smoking approximately 4 years ago. The patient has been using budesonide neb last treatment twice a day. He has no home oxygen. He was living his life normally and approximately 3 days ago started having increased chest congestion, shortness of breath and wheezing. He felt his chest was congested and he was getting plugged with mucus. Attempts to suction these mucous plugs were unsuccessful both at home and here in the hospital. Ultimately he was able to take out the small pieces of bloody mucoid secretions yesterday. His chest x-ray shows COPD otherwise there is no clearcut airspace disease or pneumonias. No chest pain. He has some impairment his renal function probably secondary to an acute kidney injury. His potassium level is also low and this needs to be replaced. No change in mental status. No nausea or vomiting. No history of any major swelling in the lower extremities. This is his first hospitalization over the past several years for any breathing complications. Otherwise this patient has been doing well. Patient was reevaluated today on 08/14/2016, apparently the patient developed significant and profound shortness of breath earlier today. I was notified by the nurse about his condition, and I have made arrangements for the patient to transfer to the ICU. Upon arrival to the ICU, the patient was noted to be in significant respiratory distress, and needed to be intubated. However considering the patient has only a stoma, I attempted to place a size 6 tracheostomy cuffed Shiley tube, but could not pass it all the way down. However I was able to pass a size 4 Shiley since the stoma was quite narrow. And I was able to connect that the mechanical ventilation and patient was ventilated easily. Cuff was inflated, and there was minimal volume loss. However ABG post intubation and post placement on mechanical ventilation showed a pO2 of 110 pCO2 of 49 and pH of 7.27 and this was on a 50% FiO2 with tidal volume of 500 and PEEP of 5. Rate was 20. Patient had a venous Doppler upon arrival to the ICU and it was negative for DVT this was done because of asymmetric swelling noted in the lower extremities. Chest x-ray showed some subsegmental atelectasis or possibly infiltrates in the right lower lobe and there was evidence of COPD and cardiomegaly. CBC showed leukocytosis with WBC count of 23.1 hemoglobin was 15.1 renal profile was abnormal with a BUN of 35 creatinine of 1.70 Patient was reevaluated today on 08/15/2016, remains on mechanical ventilation, and he is on 40% FiO2, with tidal volume of 550, respiratory rate of 20, and PEEP of 5. ABG was reviewed, and no changes were made in the vent settings. As a matter of fact I plan to hold sedation today, give the patient a weaning trial utilizing pressure support and CPAP, and if tolerated well I would basically proceed to trach collar. Chest x-ray showed mostly atelectasis at the bases, difficult to rule out early infiltrate in the right lower lobe there is also mild venous congestion, and there is evidence of COPD and cardiomegaly. Patient is presently on Levaquin empirically. CBC showed improvement in the leukocytosis with WBC count of 17.6. Hemoglobin is 12.9. Renal profile remains abnormal with a creatinine of 1.70 electrolytes are normal. Bicarb is 18. Influenza screen was negative. Medications were all reviewed patient remains on bronchodilators antibiotics and steroids. Patient was reevaluated today on 08/16/2016, patient remains on mechanical ventilation, chest x-ray is worsening a bit showing more atelectasis and more infiltrates in the lower lobes bilaterally, and suspect small bilateral pleural effusions. Hence the antibiotics will be broadened and I will include Zosyn in addition to Levaquin, and the patient will be given a trial of gentle diuresis. My plan again today is to consider placing the patient on pressure support and CPAP, and if tolerated I will go proceed to trach collar. His labs were reviewed and they seem to be relatively unremarkable. Renal profile is slightly abnormal with a creatinine of 1.30. White cell count is 13.7 Patient was reevaluated today on 08/17/2016, he remains on mechanical ventilation , chest x-ray showed some improvement in the by basilar areas of infiltrate and/ or atelectasis, ABG was reviewed, labs are all reviewed, there is evidence of leukocytosis with WBC count of 18.0. His ABG showed a pO2 of 85 pCO2 of 32 and pH of 7.42. This is on 40% FiO2, hence I was planning to place the patient on a trach collar today, and give him a trial of weaning, however as he woke up from sedation, patient apparently developed A. fib with RVR. Then would place him back on assist control mode of mechanical ventilation. His renal profile is about the same as yesterday, creatinine is 1.30, it was 1.77 on admission. Objective - Vital Signs Vital signs: Vital Signs Temp 98.4 F 08/17/16 12:00 Pulse 133 H 08/17/16 12:00 Resp 19 08/17/16 12:00 BP 99/72 08/17/16 12:00 Pulse Ox 93 L 08/17/16 12:00 Intake & Output 08/16/16 08/17/16 08/17/16 18:59 06:59 18:59 Intake Total 9763.804 3892.429 556.381 Output Total 1670 800 500 Balance -107.829 329.429 56.381 Weight 116 kg 116 kg Intake: IV 900 900 375 Sodium Chloride 0.45% 1, 900 900 375 000 ml @ 75 mls/hr IV . [id number] [facility] Rx#:[id number] Intake, IV Titration 382.171 79.429 91.381 Amount Diltiazem 125 mg In 20 Sodium Chloride 0.9% 100 ml @ 10 MG/HR 10 mls/hr IV .[id number] [facility] Rx#: [id number] Piperacillin-Tazobactam 3 50 50.0 .375 gm In Dextrose/Water 1 50ml.bag @ 12.5 mls/hr IVPB Q8HR [facility] Rx#: [id number] Propofol 500 mg In Empty 82.171 79.429 21.381 Bag 1 bag @ Titrate IV . Q0M [facility] Rx#:[id number] Sodium Phosphate 10 mmol 250 In Sodium Chloride 0.9% 250 ml @ 125 mls/hr IVPB ONCE ONE Rx#:[id number] Tube Feeding 240 150 90 Other 40 Output: Urine 1670 800 500 Other: Voiding Method Indwelling Catheter Indwelling Catheter # Voids 350 # Bowel Movements 1 - Exam Physical Exam: Revealed a 61-year-old white male on mechanical ventilation, patient is being ventilated via a small tracheostomy which was inserted when he arrived to the ICU few days ago in the stoma. It is a size 4.0 Shiley with a cuff HEENT:[Neck is supple.] [No neck masses.] [No thyromegaly.] [No JVD.] Tracheostomy seems to be intact Chest: [Diminished breath sounds at the bases no crackles or rhonchi or wheezes. ] Cardiac Exam: [Normal S1 and S2, no S3 gallop, no murmur.] Abdomen: [Soft, nontender, no megaly, no rebound, no guarding, normal bowel sounds.] Extremities: [No clubbing, no edema, no cyanosis.] Neurological Exam: [No focal neurologic deficit.] - Labs CBC & Chem 7: 08/17/16 04:43 08/17/16 04:43 Labs: Abnormal Lab Results - Last 24 Hours (Table) 08/16/16 08/16/16 08/17/16 Range/Units 18:00 23:21 04:43 WBC 18.0 H (3.8-10.6) k/uL RDW 16.7 H (11.5-15.5) % Plt Count 146 L (150-450) k/uL Neutrophils # (Manual) 14.9 H (1.3-7.7) k/uL ABG pCO2 (35-45) mmHg Chloride (98-107) mmol/L Carbon Dioxide (22-30) mmol/L BUN (9-20) mg/dL Creatinine (0.66-1.25) mg/dL Glucose (74-99) mg/dL POC Glucose (mg/dL) 136 H 176 H (75-99) mg/dL Calcium (8.4-10.2) mg/dL Magnesium (1.6-2.3) mg/dL 08/17/16 08/17/16 08/17/16 Range/Units 04:43 05:31 08:50 WBC (3.8-10.6) k/uL RDW (11.5-15.5) % Plt Count (150-450) k/uL Neutrophils # (Manual) (1.3-7.7) k/uL ABG pCO2 32 L (35-45) mmHg Chloride 115 H (98-107) mmol/L Carbon Dioxide 20 L (22-30) mmol/L BUN 42 H (9-20) mg/dL Creatinine 1.30 H (0.66-1.25) mg/dL Glucose 172 H (74-99) mg/dL POC Glucose (mg/dL) 163 H (75-99) mg/dL Calcium 8.3 L (8.4-10.2) mg/dL Magnesium 2.8 H (1.6-2.3) mg/dL 08/17/16 Range/Units 11:53 WBC (3.8-10.6) k/uL RDW (11.5-15.5) % Plt Count (150-450) k/uL Neutrophils # (Manual) (1.3-7.7) k/uL ABG pCO2 (35-45) mmHg Chloride (98-107) mmol/L Carbon Dioxide (22-30) mmol/L BUN (9-20) mg/dL Creatinine (0.66-1.25) mg/dL Glucose (74-99) mg/dL POC Glucose (mg/dL) 171 H (75-99) mg/dL Calcium (8.4-10.2) mg/dL Magnesium (1.6-2.3) mg/dL Assessment and Plan Plan: 1 Acute respiratory failure requiring intubation and mechanical ventilation. This is secondary to COPD exacerbation and tracheobronchitis, chest x-ray today is suggestive of possible pneumonia, could very well be a gram-negative pneumonia considering his underlying COPD. Hence I broadened the spectrum of antibiotics, and now he is on Zosyn and Levaquin. 2 history of laryngeal cancer and previous total laryngectomy and previous tracheotomy. 3 acute kidney injury, improved creatinine is down to 1.3 today 4 history of congestive heart failure. Recommendation: My plan today is to continue present treatment plan including bronchodilators antibiotics and steroids, patient cannot be weaned today since he went into atrial fibrillation with RVR, and that being addressed by cardiology on consultation. In the meantime we'll continue present treatment plan and we will address weaning on a daily basis. Time with Patient: Greater than 30
[2016-08-17] MEDS: LEVOFLOXACIN 750MG-D5W PMX 750 MG in DEXTROSE/WATER 1 150ML.BAG IVPB SCH (16:29)
[2016-08-17 18:09] LABS: Glucose,Whole Blood 169 mg/dL (75-99)
--- NOTE | 2016-08-17 19:34 | P.PN ---
Subjective 71-year-old gentleman with history of laryngeal cancer underwent chemoradiation and surgical intervention in the past comes in to the hospital with progressive worsening of breathing difficulty associated with cough that has been nonproductive in nature. Patient was noted to have diffuse rhonchi and initial evaluation. Patient was thereafter required to be decannulated on the previous tracheotomy site. This was done with a size 4 shiley and was cough. Patient was started on empiric antibiotic therapy. Breathing treatments and steroids were started. Thereafter however patient continues to have thick mucous secretions through the ET tube. Weaning trials were attempted today however patient did not tolerated. Patient was currently on minimal sedation with propofol. However apparently off sedation patient has multiple episodes of tachypnea likely associated with anxiety. No other overnight events reported. 08/17/2016 Patient apparently went into atrial fibrillation with rapid ventricular rate. Continues to have thick moderate ET tube secretions. No other overnight events reported. Patient is currently sedated and on ventilator support. Objective - Vital Signs Vital signs: Vital Signs Temp 98.3 F 08/17/16 16:00 Pulse 76 08/17/16 19:26 Resp 11 L 08/17/16 19:00 BP 102/60 08/17/16 19:00 Pulse Ox 94 L 08/17/16 19:00 Intake & Output 08/17/16 08/17/16 08/18/16 06:59 18:59 06:59 Intake Total 0075.016 2909.400 Output Total 800 1045 Balance 329.429 211.400 Weight 116 kg 116 kg Intake: IV 900 900 Sodium Chloride 0.45% 1, 900 900 000 ml @ 75 mls/hr IV . [id number] [facility] Rx#:[id number] Intake, IV Titration 79.429 146.400 Amount Diltiazem 125 mg In 20 Sodium Chloride 0.9% 100 ml @ 10 MG/HR 10 mls/hr IV .[id number] [facility] Rx#: [id number] Piperacillin-Tazobactam 3 50.0 .375 gm In Dextrose/Water 1 50ml.bag @ 12.5 mls/hr IVPB Q8HR [facility] Rx#: [id number] Propofol 500 mg In Empty 79.429 76.400 Bag 1 bag @ Titrate IV . Q0M [facility] Rx#:[id number] Tube Feeding 150 210 Output: Urine 800 1045 Other: Voiding Method Indwelling Catheter Indwelling Catheter # Voids 350 # Bowel Movements 1 - Exam Gen. appearance sedated today. Neck patient has a cuffed size 4 pediatric tube Lungs diffuse rhonchi air movement appreciated Heart S1-S2 heard regular rate and rhythm no murmurs. Abdomen is soft nontender no organomegaly Lower extremities no edema noted. - Labs CBC & Chem 7: 08/17/16 04:43 08/17/16 04:43 Labs: Abnormal Lab Results - Last 24 Hours (Table) 08/16/16 08/17/16 08/17/16 Range/Units 23:21 04:43 04:43 WBC 18.0 H (3.8-10.6) k/uL RDW 16.7 H (11.5-15.5) % Plt Count 146 L (150-450) k/uL Neutrophils # (Manual) 14.9 H (1.3-7.7) k/uL ABG pCO2 (35-45) mmHg Chloride 115 H (98-107) mmol/L Carbon Dioxide 20 L (22-30) mmol/L BUN 42 H (9-20) mg/dL Creatinine 1.30 H (0.66-1.25) mg/dL Glucose 172 H (74-99) mg/dL POC Glucose (mg/dL) 176 H (75-99) mg/dL Calcium 8.3 L (8.4-10.2) mg/dL Magnesium 2.8 H (1.6-2.3) mg/dL 08/17/16 08/17/16 08/17/16 Range/Units 05:31 08:50 11:53 WBC (3.8-10.6) k/uL RDW (11.5-15.5) % Plt Count (150-450) k/uL Neutrophils # (Manual) (1.3-7.7) k/uL ABG pCO2 32 L (35-45) mmHg Chloride (98-107) mmol/L Carbon Dioxide (22-30) mmol/L BUN (9-20) mg/dL Creatinine (0.66-1.25) mg/dL Glucose (74-99) mg/dL POC Glucose (mg/dL) 163 H 171 H (75-99) mg/dL Calcium (8.4-10.2) mg/dL Magnesium (1.6-2.3) mg/dL 08/17/16 Range/Units 18:06 WBC (3.8-10.6) k/uL RDW (11.5-15.5) % Plt Count (150-450) k/uL Neutrophils # (Manual) (1.3-7.7) k/uL ABG pCO2 (35-45) mmHg Chloride (98-107) mmol/L Carbon Dioxide (22-30) mmol/L BUN (9-20) mg/dL Creatinine (0.66-1.25) mg/dL Glucose (74-99) mg/dL POC Glucose (mg/dL) 169 H (75-99) mg/dL Calcium (8.4-10.2) mg/dL Magnesium (1.6-2.3) mg/dL Assessment and Plan Plan: #1 acute hypoxic hypercapnic respiratory failure sec A secondary to acute exacerbation of COPD from an acute episode of tracheobronchitis. #2 history of laryngeal cancer status post chemoradiation and surgical intervention #3 acute kidney injury that is improving #4 acute on chronic mildly decompensated diastolic heart failure #5 non-anion gap metabolic acidosis #6 leukocytosis #Hypothyroidism #8 atrial fibrillation with rapid ventricular rate currently on a Cardizem drip Plan Continue bronchodilator therapy steroid therapy. Continue antibiotics. Continue Cardizem drip at this time. Weaning trials and ventilator management per pulmonology. Anticoagulation in regards to atrial fibrillation needs to be discussed. However is currently critically ill
[2016-08-17] MEDS: LEVOTHYROXINE 100 MCG TAB PO SCH (21:05)
[2016-08-18] MEDS: PIPERACILLIN-TAZOBACTAM 3.375 GM in DEXTROSE/WATER 1 50ML.BAG IVPB SCH ×4 (00:06→23:47)
[2016-08-18] MEDS: methylPREDNISolone SOD SUCCI 125 MG/2 ML VIAL IV SCH ×5 (00:07→23:47)
[2016-08-18] MEDS: SODIUM CHLORIDE 0.45% 1,000 ML IV SCH ×2 (00:07→11:42)
[2016-08-18] MEDS: INSULIN LISPRO (humaLOG) 300 UNIT/3 ML VIAL SQ SCH ×5 (00:09→23:47)
[2016-08-18 00:10] LABS: Glucose,Whole Blood 149 mg/dL (75-99)
[2016-08-18] MEDS: PROPOFOL 500 MG in EMPTY BAG 1 BAG IV SCH ×11 (01:30→22:30)
[2016-08-18 04:55] LABS: Anisocytosis Slight; Aty Lym Flag Marked; CH 31.9; CHCM 32.9; HCT 43.6 % (39.0-53.0); HDW 3.54; HGB 14.1 gm/dL (13.0-17.5); Large Platelets Flag Marked; MCH 31.5 pg (25.0-35.0); MCHC 32.2 g/dL (31.0-37.0); MCV 97.9 fL (80.0-100.0); Macrocytosis Slight; Mean Platelet Volume 13.2; Poikilocytosis Slight; RBC 4.46 m/uL (4.30-5.90); WBC 19.1 k/uL (3.8-10.6); WBC (Perox) 18.69
[2016-08-18 04:57] LABS: Calcium 8.2 mg/dL (8.4-10.2); Magnesium 2.9 mg/dL (1.6-2.3); Phosphorous 3.9 mg/dL (2.5-4.5); Potassium 4.4 mmol/L (3.5-5.1)
[2016-08-18 05:15] LABS: Add Differential Manual Differential
[2016-08-18 05:18] LABS: Large Platelets Present; Manual Review Performed; Nucleated Red Blood Cells 0 /100 WBC (0-0); Polychromasia Present; Total Cells Counted 100
[2016-08-18 07:46] LABS: Glucose,Whole Blood 210 mg/dL (75-99)
[2016-08-18] MEDS: IPRATROPIUM-ALBUTEROL 3 ML NEB INHALATION SCH ×3 (07:54→20:17)
[2016-08-18] MEDS: BUDESONIDE 0.5 MG/2 ML NEBU INHALATION SCH ×2 (07:54→20:17)
--- NOTE | 2016-08-18 08:00 | XR ---
EXAMINATION TYPE: XR chest 1V portable DATE OF EXAM: 08/18/2016 6:45 AM HISTORY: Tube placement. REFERENCE: Previous study dated 08/17/2016. FINDINGS: There is a tracheostomy tube in place. Its tip overlies the tracheal air column in this sin gle frontal projection. There is NG tube in place. Its tip is in the stomach. There is been extensive neck surgery. There is bibasilar airspace disease. This may represent atelectasis or pneumonia. There are bilateral effusions. The heart is mildly enlarged. IMPRESSION: 1. MILD CARDIOMEGALY. 2. WORSENING BIBASILAR AIRSPACE DISEASE. 3. I SUSPECT SMALL, BILATERAL EFFUSIONS.
[2016-08-18 08:32] LABS: ABG PCO2 34 mmHg (35-45); ABG PH 7.43 (7.35-7.45); ABG PO2 72 mmHg (83-108)
[2016-08-18 08:33] LABS: ABG Base Excess -1.3 mmol/L; ABG HCO3 22 mmol/L (21-25); ABG TCO2 23 mmol/L (19-24)
[2016-08-18] MEDS: ENOXAPARIN 40 MG/0.4 ML SYRINGE SQ SCH (08:57)
[2016-08-18] MEDS: PANTOPRAZOLE 40 MG/10 ML VIAL IV SCH (08:57)
[2016-08-18] MEDS: LACTULOSE 20 GM/30 ML CUP PO SCH (08:57)
[2016-08-18] MEDS: CHLORHEXIDINE GLUCONATE 15 ML CUP MUCOUS MEM SCH ×2 (08:57→20:19)
[2016-08-18] MEDS: DILTIAZEM 125 MG in SODIUM CHLORIDE 0.9% 100 ML IV SCH ×2 (09:01→23:48)
[2016-08-18] MEDS: MORPHINE SULFATE 4 MG/ML SYRINGE IVP PRN (09:08)
[2016-08-18] MEDS: LORazepam 2 MG/ML SYRINGE IV PRN ×3 (09:48→23:59)
[2016-08-18 11:24] LABS: Glucose,Whole Blood 167 mg/dL (75-99)
--- NOTE | 2016-08-18 14:51 | PN ---
Adam is a 61-year-old gentleman who is in the ICU secondary to respiratory failure. Yesterday he had an atrial tachyarrhythmia. This morning he remains in sinus rhythm with well-controlled heart rate. Otherwise there has not been much of a change. On exam, heart rate is 80 beats per minute. Blood pressure is 93/59. Respiratory rate is 18. He is being mechanically ventilated. Chest exam reveals diminished air entry at the bases. Heart exam reveals first and second heart sounds. No gallop. Exam of extremities reveals trace edema. The patient is on IV antibiotics, Lovenox, Cardizem and Levophed. ASSESSMENT: Atrial tachycardia currently in sinus rhythm. Heart rate is well controlled. I am going to cut back on the dose of Cardizem at this time.
[2016-08-18] MEDS: LEVOFLOXACIN 750MG-D5W PMX 750 MG in DEXTROSE/WATER 1 150ML.BAG IVPB SCH (16:06)
[2016-08-18 17:42] LABS: Glucose,Whole Blood 184 mg/dL (75-99)
--- NOTE | 2016-08-18 17:48 | P.PN ---
Subjective Principal diagnosis: Acute exacerbation of COPD requiring intubation and mechanical ventilation. 61-year-old male patient with known history of meningeal cancer and COPD. The patient was diagnosed having laryngeal cancer approximately 4 years ago and he was treated with adjuvant/neoadjuvant chemotherapy following that he underwent a total laryngectomy at [facility]. This was followed by radiation therapy. S/P Valve was attempted to be placed on multiple occasions however this is not helpful and the speech and the valve Dislodging. Currently the Patient Is in the Hospital for Increased Shortness of Breath. The patient is known to have COPD. He quit smoking approximately 4 years ago. The patient has been using budesonide neb last treatment twice a day. He has no home oxygen. He was living his life normally and approximately 3 days ago started having increased chest congestion, shortness of breath and wheezing. He felt his chest was congested and he was getting plugged with mucus. Attempts to suction these mucous plugs were unsuccessful both at home and here in the hospital. Ultimately he was able to take out the small pieces of bloody mucoid secretions yesterday. His chest x-ray shows COPD otherwise there is no clearcut airspace disease or pneumonias. No chest pain. He has some impairment his renal function probably secondary to an acute kidney injury. His potassium level is also low and this needs to be replaced. No change in mental status. No nausea or vomiting. No history of any major swelling in the lower extremities. This is his first hospitalization over the past several years for any breathing complications. Otherwise this patient has been doing well. Patient was reevaluated today on 08/14/2016, apparently the patient developed significant and profound shortness of breath earlier today. I was notified by the nurse about his condition, and I have made arrangements for the patient to transfer to the ICU. Upon arrival to the ICU, the patient was noted to be in significant respiratory distress, and needed to be intubated. However considering the patient has only a stoma, I attempted to place a size 6 tracheostomy cuffed Shiley tube, but could not pass it all the way down. However I was able to pass a size 4 Shiley since the stoma was quite narrow. And I was able to connect that the mechanical ventilation and patient was ventilated easily. Cuff was inflated, and there was minimal volume loss. However ABG post intubation and post placement on mechanical ventilation showed a pO2 of 110 pCO2 of 49 and pH of 7.27 and this was on a 50% FiO2 with tidal volume of 500 and PEEP of 5. Rate was 20. Patient had a venous Doppler upon arrival to the ICU and it was negative for DVT this was done because of asymmetric swelling noted in the lower extremities. Chest x-ray showed some subsegmental atelectasis or possibly infiltrates in the right lower lobe and there was evidence of COPD and cardiomegaly. CBC showed leukocytosis with WBC count of 23.1 hemoglobin was 15.1 renal profile was abnormal with a BUN of 35 creatinine of 1.70 Patient was reevaluated today on 08/15/2016, remains on mechanical ventilation, and he is on 40% FiO2, with tidal volume of 550, respiratory rate of 20, and PEEP of 5. ABG was reviewed, and no changes were made in the vent settings. As a matter of fact I plan to hold sedation today, give the patient a weaning trial utilizing pressure support and CPAP, and if tolerated well I would basically proceed to trach collar. Chest x-ray showed mostly atelectasis at the bases, difficult to rule out early infiltrate in the right lower lobe there is also mild venous congestion, and there is evidence of COPD and cardiomegaly. Patient is presently on Levaquin empirically. CBC showed improvement in the leukocytosis with WBC count of 17.6. Hemoglobin is 12.9. Renal profile remains abnormal with a creatinine of 1.70 electrolytes are normal. Bicarb is 18. Influenza screen was negative. Medications were all reviewed patient remains on bronchodilators antibiotics and steroids. Patient was reevaluated today on 08/16/2016, patient remains on mechanical ventilation, chest x-ray is worsening a bit showing more atelectasis and more infiltrates in the lower lobes bilaterally, and suspect small bilateral pleural effusions. Hence the antibiotics will be broadened and I will include Zosyn in addition to Levaquin, and the patient will be given a trial of gentle diuresis. My plan again today is to consider placing the patient on pressure support and CPAP, and if tolerated I will go proceed to trach collar. His labs were reviewed and they seem to be relatively unremarkable. Renal profile is slightly abnormal with a creatinine of 1.30. White cell count is 13.7 Patient was reevaluated today on 08/17/2016, he remains on mechanical ventilation , chest x-ray showed some improvement in the by basilar areas of infiltrate and/ or atelectasis, ABG was reviewed, labs are all reviewed, there is evidence of leukocytosis with WBC count of 18.0. His ABG showed a pO2 of 85 pCO2 of 32 and pH of 7.42. This is on 40% FiO2, hence I was planning to place the patient on a trach collar today, and give him a trial of weaning, however as he woke up from sedation, patient apparently developed A. fib with RVR. Then would place him back on assist control mode of mechanical ventilation. His renal profile is about the same as yesterday, creatinine is 1.30, it was 1.77 on admission. Patient was reevaluated today on 08/18/2016, remains on mechanical ventilation, however as I evaluated the patient early this morning, he was noted to be extremely restless, agitated, stacking his breaths, did not seem to be very synchronous with the ventilator. And obviously he is doing a lot of work of breathing that was felt to be unnecessary hence I increased the sedation on this patient. I also raise the possibility of volume loss from the short tracheostomy and I discussed the condition with ENT who felt that they cannot do much for it. In the labs case scenario I could potentially insert a size 4 longer endotracheal tube as long as it is cuffed. No size 4 was available in the hospital with a cuff, the smallest they have is a size 5. For the time being I will keep the patient on a size 4 Shiley and we'll adjust his position so that we do not lose much volume was ventilating him. And his sedation was increased. ABG this point rate showed a pO2 of 72 pCO2 of 34 pH of 7.43 chest x -ray continues to show some atelectasis and infiltrates in the lower lobes. Patient is covered empirically for presumptive pneumonia and he is on broad- spectrum coverage including Levaquin and Zosyn. WBC is noted to be elevated at 19.1. Electrolytes were reviewed, BUN is 48 creatinine is 1.50. Clearly the patient is not ready for any weaning trials or extubation at this point. I have a strong feeling that the patient will be on a long-term ventilator on long -term basis. Objective - Vital Signs Vital signs: Vital Signs Temp 98.3 F 08/18/16 16:00 Pulse 61 08/18/16 17:00 Resp 26 H 02/10/17 17:00 BP 96/58 08/18/16 17:00 Pulse Ox 96 08/18/16 17:00 Intake & Output 08/17/16 08/18/16 08/18/16 18:59 06:59 18:59 Intake Total 8877.842 9005.981 1503.281 Output Total 1045 460 635 Balance 966.706 0806.981 868.281 Weight 116 kg 120.1 kg 120.1 kg Intake: IV 900 825 825 Sodium Chloride 0.45% 1, 900 825 825 000 ml @ 75 mls/hr IV . [id number] YONATHAN Rx#:[id number] Intake, IV Titration 271.400 219.981 328.281 Amount Diltiazem 125 mg In 145 125 55.500 Sodium Chloride 0.9% 100 ml @ 10 MG/HR 10 mls/hr IV .[id number] YONATHAN Rx#: [id number] Piperacillin-Tazobactam 3 50.0 50 .375 gm In Dextrose/Water 1 50ml.bag @ 12.5 mls/hr IVPB Q8HR YONATHAN Rx#: [id number] Propofol 500 mg In Empty 76.400 44.981 272.781 Bag 1 bag @ Titrate IV . Q0M YONATHAN Rx#:[id number] Tube Feeding 210 690 350 Output: Urine 1045 460 635 Other: Voiding Method Indwelling Catheter Indwelling Catheter Indwelling Catheter # Voids 350 - Exam Physical Exam: Revealed a 61-year-old white male on mechanical ventilation, patient is being ventilated via a small tracheostomy which was inserted when he arrived to the ICU few days ago in the stoma. It is a size 4.0 Shiley with a cuff HEENT:[Neck is supple.] [No neck masses.] [No thyromegaly.] [No JVD.] Tracheostomy seems to be intact Chest: [Diminished breath sounds at the bases no crackles or rhonchi or wheezes. ] Cardiac Exam: [Normal S1 and S2, no S3 gallop, no murmur.] Abdomen: [Soft, nontender, no megaly, no rebound, no guarding, normal bowel sounds.] Extremities: [No clubbing, no edema, no cyanosis.] Neurological Exam: [Cannot be assessed, patient is on propofol drip - Labs CBC & Chem 7: 08/18/16 04:24 08/18/16 04:24 Labs: Abnormal Lab Results - Last 24 Hours (Table) 08/17/16 08/18/16 08/18/16 Range/Units 18:06 00:08 04:24 WBC 19.1 H (3.8-10.6) k/uL RDW 17.0 H (11.5-15.5) % Neutrophils # (Manual) 17.2 H (1.3-7.7) k/uL ABG pCO2 (35-45) mmHg ABG pO2 (83-108) mmHg Chloride (98-107) mmol/L Carbon Dioxide (22-30) mmol/L BUN (9-20) mg/dL Creatinine (0.66-1.25) mg/dL Glucose (74-99) mg/dL POC Glucose (mg/dL) 169 H 149 H (75-99) mg/dL Calcium (8.4-10.2) mg/dL Magnesium (1.6-2.3) mg/dL 08/18/16 08/18/16 08/18/16 Range/Units 04:24 07:44 08:25 WBC (3.8-10.6) k/uL RDW (11.5-15.5) % Neutrophils # (Manual) (1.3-7.7) k/uL ABG pCO2 34 L (35-45) mmHg ABG pO2 72 L (83-108) mmHg Chloride 114 H (98-107) mmol/L Carbon Dioxide 21 L (22-30) mmol/L BUN 48 H (9-20) mg/dL Creatinine 1.50 H (0.66-1.25) mg/dL Glucose 186 H (74-99) mg/dL POC Glucose (mg/dL) 210 H (75-99) mg/dL Calcium 8.2 L (8.4-10.2) mg/dL Magnesium 2.9 H (1.6-2.3) mg/dL 08/18/16 Range/Units 11:23 WBC (3.8-10.6) k/uL RDW (11.5-15.5) % Neutrophils # (Manual) (1.3-7.7) k/uL ABG pCO2 (35-45) mmHg ABG pO2 (83-108) mmHg Chloride (98-107) mmol/L Carbon Dioxide (22-30) mmol/L BUN (9-20) mg/dL Creatinine (0.66-1.25) mg/dL Glucose (74-99) mg/dL POC Glucose (mg/dL) 167 H (75-99) mg/dL Calcium (8.4-10.2) mg/dL Magnesium (1.6-2.3) mg/dL Microbiology - Last 24 Hours (Table) 08/15/16 17:15 Gram Stain - Final Sputum Sputum Culture - Final Assessment and Plan Plan: 1 Acute respiratory failure requiring intubation and mechanical ventilation. This is secondary to COPD exacerbation by basilar pneumonia, possibly gram- negative in nature. Community-acquired, chest x-ray over the last few days has been suggestive of pneumonia, could very well be a gram-negative pneumonia considering his underlying COPD. Hence I broadened the spectrum of antibiotics , and now he is on Zosyn and Levaquin. 2 history of laryngeal cancer and previous total laryngectomy and previous tracheotomy. 3 acute kidney injury, improved creatinine is down to 1.3 today 4 history of congestive heart failure. Recommendation: Maintain patient on mechanical ventilation, continue supportive care measures including ventilatory support, nutritional support, continue antibiotics, bronchodilators, GI and DVT prophylaxis, clearly based on his overall clinical status today, patient is not ready for any weaning. Again I discussed his condition with the ENT physician Dr. Bynum, he did not feel that he could help us dealing with his tracheostomy and stop. Hence no need for ENT consultation at this point. And I will try to consider placement of a small size pediatric endotracheal tube to replace the size 4 Shiley if he continues to have significantly cut on the tracheostomy. Critical care time is 45 minutes. Time with Patient: Greater than 30
--- NOTE | 2016-08-18 19:14 | P.PN ---
Subjective 71-year-old gentleman with history of laryngeal cancer underwent chemoradiation and surgical intervention in the past comes in to the hospital with progressive worsening of breathing difficulty associated with cough that has been nonproductive in nature. Patient was noted to have diffuse rhonchi and initial evaluation. Patient was thereafter required to be decannulated on the previous tracheotomy site. This was done with a size 4 shiley and was cough. Patient was started on empiric antibiotic therapy. Breathing treatments and steroids were started. Thereafter however patient continues to have thick mucous secretions through the ET tube. Weaning trials were attempted today however patient did not tolerated. Patient was currently on minimal sedation with propofol. However apparently off sedation patient has multiple episodes of tachypnea likely associated with anxiety. No other overnight events reported. 08/17/2016 Patient apparently went into atrial fibrillation with rapid ventricular rate. Continues to have thick moderate ET tube secretions. No other overnight events reported. Patient is currently sedated and on ventilator support. Issues with cuff leak around the tube. Currently back on the ventilator, on sedation with propofol Sinus rhythm. Objective - Vital Signs Vital signs: Vital Signs Temp 98.3 F 08/18/16 16:00 Pulse 61 08/18/16 18:00 Resp 25 H 08/18/16 18:00 BP 101/60 08/18/16 18:00 Pulse Ox 96 08/18/16 18:00 Intake & Output 08/18/16 08/18/16 08/19/16 06:59 18:59 06:59 Intake Total 6186.040 0705.781 Output Total 460 810 Balance 1355.914 3256.781 Weight 120.1 kg 120.1 kg Intake: IV 825 1137.5 Levofloxacin 750Mg-D5w 150 Pmx 750 mg In Dextrose/ Water 1 150ml.bag @ 100 mls/hr IVPB Q24H YONATHAN Rx#: [id number] Piperacillin-Tazobactam 3 12.5 .375 gm In Dextrose/Water 1 50ml.bag @ 12.5 mls/hr IVPB Q8HR YONATHAN Rx#: [id number] Sodium Chloride 0.45% 1, 825 975 000 ml @ 75 mls/hr IV . [id number] YONATHAN Rx#:[id number] Intake, IV Titration 219.981 328.281 Amount Diltiazem 125 mg In 125 55.500 Sodium Chloride 0.9% 100 ml @ 10 MG/HR 10 mls/hr IV .[id number] YONATHAN Rx#: [id number] Piperacillin-Tazobactam 3 50 .375 gm In Dextrose/Water 1 50ml.bag @ 12.5 mls/hr IVPB Q8HR YONATHAN Rx#: [id number] Propofol 500 mg In Empty 44.981 272.781 Bag 1 bag @ Titrate IV . Q0M YONATHAN Rx#:[id number] Tube Feeding 690 400 Output: Urine 460 810 Other: Voiding Method Indwelling Catheter Indwelling Catheter - Exam Gen. appearance sedated today. Neck patient has a cuffed size 4 pediatric tube Lungs diffuse rhonchi air movement appreciated, mod. amounts of reddish secretions noted. Heart S1-S2 heard regular rate and rhythm no murmurs. Abdomen is soft nontender no organomegaly Lower extremities no edema noted. - Labs CBC & Chem 7: 08/18/16 04:24 08/18/16 04:24 Labs: Abnormal Lab Results - Last 24 Hours (Table) 08/18/16 08/18/16 08/18/16 Range/Units 00:08 04:24 04:24 WBC 19.1 H (3.8-10.6) k/uL RDW 17.0 H (11.5-15.5) % Neutrophils # (Manual) 17.2 H (1.3-7.7) k/uL ABG pCO2 (35-45) mmHg ABG pO2 (83-108) mmHg Chloride 114 H (98-107) mmol/L Carbon Dioxide 21 L (22-30) mmol/L BUN 48 H (9-20) mg/dL Creatinine 1.50 H (0.66-1.25) mg/dL Glucose 186 H (74-99) mg/dL POC Glucose (mg/dL) 149 H (75-99) mg/dL Calcium 8.2 L (8.4-10.2) mg/dL Magnesium 2.9 H (1.6-2.3) mg/dL 08/18/16 08/18/16 08/18/16 Range/Units 07:44 08:25 11:23 WBC (3.8-10.6) k/uL RDW (11.5-15.5) % Neutrophils # (Manual) (1.3-7.7) k/uL ABG pCO2 34 L (35-45) mmHg ABG pO2 72 L (83-108) mmHg Chloride (98-107) mmol/L Carbon Dioxide (22-30) mmol/L BUN (9-20) mg/dL Creatinine (0.66-1.25) mg/dL Glucose (74-99) mg/dL POC Glucose (mg/dL) 210 H 167 H (75-99) mg/dL Calcium (8.4-10.2) mg/dL Magnesium (1.6-2.3) mg/dL 08/18/16 Range/Units 17:39 WBC (3.8-10.6) k/uL RDW (11.5-15.5) % Neutrophils # (Manual) (1.3-7.7) k/uL ABG pCO2 (35-45) mmHg ABG pO2 (83-108) mmHg Chloride (98-107) mmol/L Carbon Dioxide (22-30) mmol/L BUN (9-20) mg/dL Creatinine (0.66-1.25) mg/dL Glucose (74-99) mg/dL POC Glucose (mg/dL) 184 H (75-99) mg/dL Calcium (8.4-10.2) mg/dL Magnesium (1.6-2.3) mg/dL Microbiology - Last 24 Hours (Table) 08/15/16 17:15 Gram Stain - Final Sputum Sputum Culture - Final Assessment and Plan Plan: #1 acute hypoxic hypercapnic respiratory failure sec A secondary to acute exacerbation of COPD from an acute episode of tracheobronchitis. #2 history of laryngeal cancer status post chemoradiation and surgical intervention #3 acute kidney injury that is improving #4 acute on chronic mildly decompensated diastolic heart failure #5 non-anion gap metabolic acidosis #6 leukocytosis #Hypothyroidism #8 atrial fibrillation with rapid ventricular rate currently on a Cardizem drip , NSR now, paroxysmal in nature. Plan Continue ventilator support. If pt continues to have issues, May need to consider higher level of care with expertise for tracheal shaving and stent for a larger trach tube to be placed in order for the pt to be weaned off. Pt is critically ill, hold off on anticoagulation.
[2016-08-18] MEDS: LEVOTHYROXINE 100 MCG TAB PO SCH (20:19)
[2016-08-18 23:48] LABS: Glucose,Whole Blood 194 mg/dL (75-99)
[2016-08-19] MEDS: PROPOFOL 500 MG in EMPTY BAG 1 BAG IV SCH ×5 (00:30→09:06)
[2016-08-19] MEDS: SODIUM CHLORIDE 0.45% 1,000 ML IV SCH ×2 (01:29→14:55)
[2016-08-19 04:50] LABS: Anisocytosis Slight; Aty Lym Flag Marked; CH 31.9; CHCM 33.1; HCT 42.8 % (39.0-53.0); Large Platelets Flag Marked; MCH 31.8 pg (25.0-35.0); MCHC 32.7 g/dL (31.0-37.0); MCV 97.2 fL (80.0-100.0); Macrocytosis Slight; Mean Platelet Volume 12.9; WBC 21.4 k/uL (3.8-10.6); WBC (Perox) 22.01
[2016-08-19 05:19] LABS: Calcium 8.2 mg/dL (8.4-10.2); Magnesium 2.9 mg/dL (1.6-2.3); Phosphorous 4.8 mg/dL (2.5-4.5); Potassium 4.5 mmol/L (3.5-5.1)
[2016-08-19 06:05] LABS: Add Differential Manual Differential
[2016-08-19 06:09] LABS: Nucleated Red Blood Cells 0 /100 WBC (0-0); Total Cells Counted 200
[2016-08-19 06:10] LABS: Manual Review Performed
[2016-08-19 06:11] LABS: Polychromasia Present
[2016-08-19] MEDS: INSULIN LISPRO (humaLOG) 300 UNIT/3 ML VIAL SQ SCH ×4 (06:58→23:54)
[2016-08-19 06:59] LABS: Glucose,Whole Blood 167 mg/dL (75-99)
[2016-08-19] MEDS: methylPREDNISolone SOD SUCCI 125 MG/2 ML VIAL IV SCH ×4 (06:59→23:50)
[2016-08-19] MEDS: PANTOPRAZOLE 40 MG/10 ML VIAL IV SCH (08:01)
[2016-08-19] MEDS: PIPERACILLIN-TAZOBACTAM 3.375 GM in DEXTROSE/WATER 1 50ML.BAG IVPB SCH ×3 (08:03→23:50)
[2016-08-19] MEDS: ENOXAPARIN 40 MG/0.4 ML SYRINGE SQ SCH (08:03)
[2016-08-19] MEDS: CHLORHEXIDINE GLUCONATE 15 ML CUP MUCOUS MEM SCH ×2 (08:04→20:11)
[2016-08-19] MEDS: LACTULOSE 20 GM/30 ML CUP PO SCH (08:04)
--- NOTE | 2016-08-19 08:34 | XR ---
EXAMINATION TYPE: XR chest 1V portable DATE OF EXAM: 08/19/2016 6:55 AM COMPARISON: NONE INDICATION: Tube placement TECHNIQUE: Single frontal view of the chest is obtained. FINDINGS: The heart size is normal. The pulmonary vasculature is normal. There is a small left pleural effusion. Bibasilar infiltrates are present. Nasogastric tube transvers es the thorax. Tracheostomy tube is in the midline. Surgical clips are within the neck. IMPRESSION: 1. Bibasilar infiltrates and small left pleural effusion.
[2016-08-19 08:56] LABS: ABG Base Excess -1.8 mmol/L; ABG HCO3 22 mmol/L (21-25); ABG PCO2 35 mmHg (35-45); ABG PH 7.42 (7.35-7.45); ABG PO2 90 mmHg (83-108); ABG TCO2 23 mmol/L (19-24)
[2016-08-19] MEDS: DILTIAZEM 125 MG in SODIUM CHLORIDE 0.9% 100 ML IV SCH (09:04)
[2016-08-19] MEDS: BUDESONIDE 0.5 MG/2 ML NEBU INHALATION SCH ×2 (09:20→20:00)
[2016-08-19] MEDS: IPRATROPIUM-ALBUTEROL 3 ML NEB INHALATION SCH ×4 (09:20→20:00)
[2016-08-19 11:57] LABS: Glucose,Whole Blood 217 mg/dL (75-99)
--- NOTE | 2016-08-19 12:10 | PN ---
Adam is a 61-year-old gentleman that is in the ICU with respiratory failure. We are involved in his care because of atrial tachycardia, currently in sinus rhythm. Heart rate is better controlled. He is on a low dose Cardizem, which I am going to stop at this time. On exam, heart rate is 100 beats per minute, blood pressure is 110/75, respiratory rate is 29. Chest exam reveals diminished air entry at the bases. I do not hear any crackles or rhonchi. Heart exam reveals first and second heart sounds. No gallop. Exam of extremities did not reveal edema. Labs show a hemoglobin of 14. Potassium is 4.5. BUN is 60. Creatinine is 1.6. ASSESSMENT: 1. Atrial tachyarrhythmia. 2. Respiratory failure. The patient is doing better from cardiac standpoint. I will stop the IV Cardizem, put him on oral Cardizem.
--- NOTE | 2016-08-19 12:28 | P.PN ---
Subjective Principal diagnosis: Acute exacerbation of COPD requiring intubation and mechanical ventilation. 61-year-old male patient with known history of meningeal cancer and COPD. The patient was diagnosed having laryngeal cancer approximately 4 years ago and he was treated with adjuvant/neoadjuvant chemotherapy following that he underwent a total laryngectomy at [facility]. This was followed by radiation therapy. S/P Valve was attempted to be placed on multiple occasions however this is not helpful and the speech and the valve Dislodging. Currently the Patient Is in the Hospital for Increased Shortness of Breath. The patient is known to have COPD. He quit smoking approximately 4 years ago. The patient has been using budesonide neb last treatment twice a day. He has no home oxygen. He was living his life normally and approximately 3 days ago started having increased chest congestion, shortness of breath and wheezing. He felt his chest was congested and he was getting plugged with mucus. Attempts to suction these mucous plugs were unsuccessful both at home and here in the hospital. Ultimately he was able to take out the small pieces of bloody mucoid secretions yesterday. His chest x-ray shows COPD otherwise there is no clearcut airspace disease or pneumonias. No chest pain. He has some impairment his renal function probably secondary to an acute kidney injury. His potassium level is also low and this needs to be replaced. No change in mental status. No nausea or vomiting. No history of any major swelling in the lower extremities. This is his first hospitalization over the past several years for any breathing complications. Otherwise this patient has been doing well. Patient was reevaluated today on 08/14/2016, apparently the patient developed significant and profound shortness of breath earlier today. I was notified by the nurse about his condition, and I have made arrangements for the patient to transfer to the ICU. Upon arrival to the ICU, the patient was noted to be in significant respiratory distress, and needed to be intubated. However considering the patient has only a stoma, I attempted to place a size 6 tracheostomy cuffed Shiley tube, but could not pass it all the way down. However I was able to pass a size 4 Shiley since the stoma was quite narrow. And I was able to connect that the mechanical ventilation and patient was ventilated easily. Cuff was inflated, and there was minimal volume loss. However ABG post intubation and post placement on mechanical ventilation showed a pO2 of 110 pCO2 of 49 and pH of 7.27 and this was on a 50% FiO2 with tidal volume of 500 and PEEP of 5. Rate was 20. Patient had a venous Doppler upon arrival to the ICU and it was negative for DVT this was done because of asymmetric swelling noted in the lower extremities. Chest x-ray showed some subsegmental atelectasis or possibly infiltrates in the right lower lobe and there was evidence of COPD and cardiomegaly. CBC showed leukocytosis with WBC count of 23.1 hemoglobin was 15.1 renal profile was abnormal with a BUN of 35 creatinine of 1.70 Patient was reevaluated today on 08/15/2016, remains on mechanical ventilation, and he is on 40% FiO2, with tidal volume of 550, respiratory rate of 20, and PEEP of 5. ABG was reviewed, and no changes were made in the vent settings. As a matter of fact I plan to hold sedation today, give the patient a weaning trial utilizing pressure support and CPAP, and if tolerated well I would basically proceed to trach collar. Chest x-ray showed mostly atelectasis at the bases, difficult to rule out early infiltrate in the right lower lobe there is also mild venous congestion, and there is evidence of COPD and cardiomegaly. Patient is presently on Levaquin empirically. CBC showed improvement in the leukocytosis with WBC count of 17.6. Hemoglobin is 12.9. Renal profile remains abnormal with a creatinine of 1.70 electrolytes are normal. Bicarb is 18. Influenza screen was negative. Medications were all reviewed patient remains on bronchodilators antibiotics and steroids. Patient was reevaluated today on 08/16/2016, patient remains on mechanical ventilation, chest x-ray is worsening a bit showing more atelectasis and more infiltrates in the lower lobes bilaterally, and suspect small bilateral pleural effusions. Hence the antibiotics will be broadened and I will include Zosyn in addition to Levaquin, and the patient will be given a trial of gentle diuresis. My plan again today is to consider placing the patient on pressure support and CPAP, and if tolerated I will go proceed to trach collar. His labs were reviewed and they seem to be relatively unremarkable. Renal profile is slightly abnormal with a creatinine of 1.30. White cell count is 13.7 Patient was reevaluated today on 08/17/2016, he remains on mechanical ventilation , chest x-ray showed some improvement in the by basilar areas of infiltrate and/ or atelectasis, ABG was reviewed, labs are all reviewed, there is evidence of leukocytosis with WBC count of 18.0. His ABG showed a pO2 of 85 pCO2 of 32 and pH of 7.42. This is on 40% FiO2, hence I was planning to place the patient on a trach collar today, and give him a trial of weaning, however as he woke up from sedation, patient apparently developed A. fib with RVR. Then would place him back on assist control mode of mechanical ventilation. His renal profile is about the same as yesterday, creatinine is 1.30, it was 1.77 on admission. Patient was reevaluated today on 08/18/2016, remains on mechanical ventilation, however as I evaluated the patient early this morning, he was noted to be extremely restless, agitated, stacking his breaths, did not seem to be very synchronous with the ventilator. And obviously he is doing a lot of work of breathing that was felt to be unnecessary hence I increased the sedation on this patient. I also raise the possibility of volume loss from the short tracheostomy and I discussed the condition with ENT who felt that they cannot do much for it. In the labs case scenario I could potentially insert a size 4 longer endotracheal tube as long as it is cuffed. No size 4 was available in the hospital with a cuff, the smallest they have is a size 5. For the time being I will keep the patient on a size 4 Shiley and we'll adjust his position so that we do not lose much volume was ventilating him. And his sedation was increased. ABG this point rate showed a pO2 of 72 pCO2 of 34 pH of 7.43 chest x -ray continues to show some atelectasis and infiltrates in the lower lobes. Patient is covered empirically for presumptive pneumonia and he is on broad- spectrum coverage including Levaquin and Zosyn. WBC is noted to be elevated at 19.1. Electrolytes were reviewed, BUN is 48 creatinine is 1.50. Clearly the patient is not ready for any weaning trials or extubation at this point. I have a strong feeling that the patient will be on a long-term ventilator on long -term basis. On 08/19/2016, patient remains on mechanical ventilation, he is quite sedated, and I plan to give him a sedation holiday early today, and possibly given a trial of trach collar. His tracheostomy seems to be functioning well this morning, no volume loss, and no air leak, hence I will hold on replacing that tracheostomy with a size 5.0 endotracheal tube with a cough. Chest x-ray continues to show by basilar infiltrates, ABG showed a pO2 of 90 pCO2 of 35 pH of 7.4 to he has leukocytosis with WBC count of 21.4, patient remains on Levaquin and Zosyn, and the Levaquin dose was adjusted because of his renal profile. Blood cultures have been negative and sputum cultures have been nondiagnostic. Objective - Vital Signs Vital signs: Vital Signs Temp 98.2 F 08/19/16 08:00 Pulse 101 H 08/19/16 11:00 Resp 29 H 08/19/16 11:00 BP 110/75 08/19/16 11:00 Pulse Ox 92 L 08/19/16 11:00 Intake & Output 08/18/16 08/19/16 08/19/16 18:59 06:59 18:59 Intake Total 2492.704 1550.875 673.702 Output Total 810 585 335 Balance 1105.781 798.875 338.702 Weight 120.1 kg 121.5 kg Intake: IV 1137.5 875 422.5 0.9 at KVO 10 Levofloxacin 750Mg-D5w 150 Pmx 750 mg In Dextrose/ Water 1 150ml.bag @ 100 mls/hr IVPB Q24H [facility]ONATH[facility] Rx#: [id number] Piperacillin-Tazobactam 3 12.5 50 37.5 .375 gm In Dextrose/Water 1 50ml.bag @ 12.5 mls/hr IVPB Q8HR YONATHAN Rx#: [id number] Sodium Chloride 0.45% 1, 975 825 375 000 ml @ 75 mls/hr IV . [id number] [facility]ON[facility] Rx#:[id number] Intake, IV Titration 378.281 258.875 86.202 Amount Diltiazem 125 mg In 55.500 19.167 23.167 Sodium Chloride 0.9% 100 ml @ 10 MG/HR 10 mls/hr IV .[id number] [facility]ATH[facility] Rx#: [id number] Propofol 500 mg In Empty 322.781 239.708 63.035 Bag 1 bag @ Titrate IV . Q0M YONATHAN Rx#:[id number] Tube Feeding 400 250 75 Other 90 Output: Urine 810 585 335 Other: Voiding Method Indwelling Catheter Indwelling Catheter Indwelling Catheter - Exam Physical Exam: Revealed a 61-year-old white male on mechanical ventilation, patient is being ventilated via a small tracheostomy which was inserted when he arrived to the ICU few days ago in the stoma. It is a size 4.0 Shiley with a cuff HEENT:[Neck is supple.] [No neck masses.] [No thyromegaly.] [No JVD.] Tracheostomy seems to be intact Chest: [Diminished breath sounds at the bases no crackles or rhonchi or wheezes. ] Cardiac Exam: [Normal S1 and S2, no S3 gallop, no murmur.] Abdomen: [Soft, nontender, no megaly, no rebound, no guarding, normal bowel sounds.] Extremities: [No clubbing, no edema, no cyanosis.] Neurological Exam: [Cannot be assessed, patient is on propofol drip - Labs CBC & Chem 7: 08/19/16 04:35 08/19/16 04:35 Labs: Abnormal Lab Results - Last 24 Hours (Table) 08/18/16 08/18/16 08/19/16 Range/Units 17:39 23:46 04:35 WBC 21.4 H (3.8-10.6) k/uL RDW 17.0 H (11.5-15.5) % Plt Count 124 L (150-450) k/uL Neutrophils # (Manual) 18.6 H (1.3-7.7) k/uL Monocytes # (Manual) 1.1 H (0-1.0) k/uL Chloride (98-107) mmol/L BUN (9-20) mg/dL Creatinine (0.66-1.25) mg/dL Glucose (74-99) mg/dL POC Glucose (mg/dL) 184 H 194 H (75-99) mg/dL Calcium (8.4-10.2) mg/dL Phosphorus (2.5-4.5) mg/dL Magnesium (1.6-2.3) mg/dL 08/19/16 08/19/16 08/19/16 Range/Units 04:35 06:58 11:55 WBC (3.8-10.6) k/uL RDW (11.5-15.5) % Plt Count (150-450) k/uL Neutrophils # (Manual) (1.3-7.7) k/uL Monocytes # (Manual) (0-1.0) k/uL Chloride 112 H (98-107) mmol/L BUN 60 H (9-20) mg/dL Creatinine 1.68 H (0.66-1.25) mg/dL Glucose 169 H (74-99) mg/dL POC Glucose (mg/dL) 167 H 217 H (75-99) mg/dL Calcium 8.2 L (8.4-10.2) mg/dL Phosphorus 4.8 H (2.5-4.5) mg/dL Magnesium 2.9 H (1.6-2.3) mg/dL Microbiology - Last 24 Hours (Table) 08/15/16 17:15 Gram Stain - Final Sputum Sputum Culture - Final Assessment and Plan Plan: 1 Acute respiratory failure requiring intubation and mechanical ventilation. This is secondary to COPD exacerbation by basilar pneumonia, possibly gram- negative in nature. Community-acquired, chest x-ray over the last few days has been suggestive of pneumonia, could very well be a gram-negative pneumonia considering his underlying COPD. Hence I broadened the spectrum of antibiotics , and now he is on Zosyn and Levaquin. 2 history of laryngeal cancer and previous total laryngectomy and previous tracheotomy. 3 acute kidney injury, seems to be worse today, hence I recommended adjusting the dose of Levaquin. 4 history of congestive heart failure. Recommendation: Maintain patient on mechanical ventilation, continue supportive care measures including ventilatory support, nutritional support, continue antibiotics, bronchodilators, GI and DVT prophylaxis, we'll give the patient possibly today for trial of trach collar off mechanical ventilation. And this will be done once the patient is off sedation, and if noted to be comfortable we 'll keep him on trach collar if felt to be appropriate. Critical care time is 32 minutes Time with Patient: Greater than 30
[2016-08-19] MEDS ORDERED: PROPOFOL 500 MG in EMPTY BAG 1 BAG IV SCH (15:00)
[2016-08-19] MEDS: DILTIAZEM ORAL 30 MG TAB PO SCH ×2 (15:42→22:34)
[2016-08-19] MEDS: LEVOFLOXACIN 250MG-D5W PMX 250 MG in DEXTROSE/WATER 1 50ML.BAG IVPB SCH (15:42)
--- NOTE | 2016-08-19 17:24 | P.PN ---
Subjective 71-year-old gentleman with history of laryngeal cancer underwent chemoradiation and surgical intervention in the past comes in to the hospital with progressive worsening of breathing difficulty associated with cough that has been nonproductive in nature. Patient was noted to have diffuse rhonchi and initial evaluation. Patient was thereafter required to be decannulated on the previous tracheotomy site. This was done with a size 4 shiley and was cough. Patient was started on empiric antibiotic therapy. Breathing treatments and steroids were started. Thereafter however patient continues to have thick mucous secretions through the ET tube. Weaning trials were attempted today however patient did not tolerated. Patient was currently on minimal sedation with propofol. However apparently off sedation patient has multiple episodes of tachypnea likely associated with anxiety. No other overnight events reported. 08/17/2016 Patient apparently went into atrial fibrillation with rapid ventricular rate. Continues to have thick moderate ET tube secretions. No other overnight events reported. Patient is currently sedated and on ventilator support. Issues with cuff leak around the tube. Currently back on the ventilator, on sedation with propofol Sinus rhythm. 08/19/2016 Patient has been off sedation. Chest x-ray this a.m. was slightly worse. During the time of my examination patient was not awake currently maintained on vent support. Objective - Vital Signs Vital signs: Vital Signs Temp 98.2 F 08/19/16 16:00 Pulse 104 H 08/19/16 16:00 Resp 28 H 08/19/16 16:00 BP 112/66 08/19/16 16:00 Pulse Ox 95 08/19/16 16:00 Intake & Output 08/18/16 08/19/16 08/19/16 18:59 06:59 18:59 Intake Total 4115.598 5383.875 1461.202 Output Total 810 585 550 Balance 1105.781 798.875 911.202 Weight 120.1 kg 121.5 kg Intake: IV 1137.5 875 895.0 0.9 at KVO 70 Levofloxacin 750Mg-D5w 150 Pmx 750 mg In Dextrose/ Water 1 150ml.bag @ 100 mls/hr IVPB Q24H [facility] Rx#: [id number] Piperacillin-Tazobactam 3 12.5 50 75.0 .375 gm In Dextrose/Water 1 50ml.bag @ 12.5 mls/hr IVPB Q8HR [facility]ONATH[facility] Rx#: [id number] Sodium Chloride 0.45% 1, 975 825 750 000 ml @ 75 mls/hr IV . [id number] [facility]ATH[facility] Rx#:[id number] Intake, IV Titration 378.281 258.875 136.202 Amount Diltiazem 125 mg In 55.500 19.167 23.167 Sodium Chloride 0.9% 100 ml @ 10 MG/HR 10 mls/hr IV .[id number] [facility]ONATHAN Rx#: [id number] Levofloxacin 250Mg-D5w 50 Pmx 250 mg In Dextrose/ Water 1 50ml.bag @ 50 mls /hr IVPB Q24H [facility]ONATH[facility] Rx#: [id number] Propofol 500 mg In Empty 322.781 239.708 63.035 Bag 1 bag @ Titrate IV . Q0M [facility]ONATH[facility] Rx#:[id number] Tube Feeding 400 250 250 Other 180 Output: Urine 810 585 550 Other: Voiding Method Indwelling Catheter Indwelling Catheter Indwelling Catheter - Exam Gen. appearance sedated today. Neck patient has a cuffed size 4 pediatric tube Lungs diffuse rhonchi air movement appreciated, mod. amounts of reddish secretions noted. Heart S1-S2 heard regular rate and rhythm no murmurs. Abdomen is soft nontender no organomegaly Lower extremities no edema noted. - Labs CBC & Chem 7: 08/19/16 04:35 08/19/16 04:35 Labs: Abnormal Lab Results - Last 24 Hours (Table) 08/18/16 08/18/16 08/19/16 Range/Units 17:39 23:46 04:35 WBC 21.4 H (3.8-10.6) k/uL RDW 17.0 H (11.5-15.5) % Plt Count 124 L (150-450) k/uL Neutrophils # (Manual) 18.6 H (1.3-7.7) k/uL Monocytes # (Manual) 1.1 H (0-1.0) k/uL Chloride (98-107) mmol/L BUN (9-20) mg/dL Creatinine (0.66-1.25) mg/dL Glucose (74-99) mg/dL POC Glucose (mg/dL) 184 H 194 H (75-99) mg/dL Calcium (8.4-10.2) mg/dL Phosphorus (2.5-4.5) mg/dL Magnesium (1.6-2.3) mg/dL 08/19/16 08/19/16 08/19/16 Range/Units 04:35 06:58 11:55 WBC (3.8-10.6) k/uL RDW (11.5-15.5) % Plt Count (150-450) k/uL Neutrophils # (Manual) (1.3-7.7) k/uL Monocytes # (Manual) (0-1.0) k/uL Chloride 112 H (98-107) mmol/L BUN 60 H (9-20) mg/dL Creatinine 1.68 H (0.66-1.25) mg/dL Glucose 169 H (74-99) mg/dL POC Glucose (mg/dL) 167 H 217 H (75-99) mg/dL Calcium 8.2 L (8.4-10.2) mg/dL Phosphorus 4.8 H (2.5-4.5) mg/dL Magnesium 2.9 H (1.6-2.3) mg/dL Assessment and Plan Plan: #1 acute hypoxic hypercapnic respiratory failure sec A secondary to acute exacerbation of COPD from an acute episode of tracheobronchitis. #2 history of laryngeal cancer status post chemoradiation and surgical intervention #3 acute kidney injury that is improving #4 acute on chronic mildly decompensated diastolic heart failure #5 non-anion gap metabolic acidosis #6 leukocytosis #Hypothyroidism #8 atrial fibrillation with rapid ventricular rate currently on a Cardizem drip , NSR now, paroxysmal in nature. #9 healthcare acquired pneumonia likely gram-negative in the left lower lobe Plan Continue ventilator support. Antibiotic therapy. vent management per pulmonary;. Patient is critically ill.
[2016-08-19 17:27] LABS: Glucose,Whole Blood 159 mg/dL (75-99)
[2016-08-19] MEDS: LEVOTHYROXINE 100 MCG TAB PO SCH (20:11)
[2016-08-19 23:56] LABS: Glucose,Whole Blood 180 mg/dL (75-99)
[2016-08-20 04:58] LABS: Calcium 8.2 mg/dL (8.4-10.2); Magnesium 3.5 mg/dL (1.6-2.3); Phosphorous 5.4 mg/dL (2.5-4.5); Potassium 4.3 mmol/L (3.5-5.1); Total Bilirubin 1.8 mg/dL (0.2-1.3); Total Protein 5.4 g/dL (6.3-8.2)
[2016-08-20 05:42] LABS: Anisocytosis Slight; CH 31.8; CHCM 32.7; HCT 44.3 % (39.0-53.0); HGB 14.2 gm/dL (13.0-17.5); Large Platelets Flag Marked; MCH 31.6 pg (25.0-35.0); MCHC 32.1 g/dL (31.0-37.0); MCV 98.3 fL (80.0-100.0); Macrocytosis Slight; RBC 4.51 m/uL (4.30-5.90); RDW 17.1 % (11.5-15.5); WBC 24.4 k/uL (3.8-10.6)
[2016-08-20 05:54] LABS: Glucose,Whole Blood 195 mg/dL (75-99)
[2016-08-20] MEDS: INSULIN LISPRO (humaLOG) 300 UNIT/3 ML VIAL SQ SCH ×3 (06:05→18:39)
[2016-08-20] MEDS: methylPREDNISolone SOD SUCCI 125 MG/2 ML VIAL IV SCH ×3 (06:05→18:37)
[2016-08-20] MEDS: LORazepam 2 MG/ML SYRINGE IV PRN ×2 (06:07→16:18)
[2016-08-20] MEDS: SODIUM CHLORIDE 0.45% 1,000 ML IV SCH ×2 (06:55→11:47)
[2016-08-20] MEDS: MORPHINE SULFATE 4 MG/ML SYRINGE IVP PRN ×2 (06:55→17:45)
--- NOTE | 2016-08-20 08:23 | XR ---
EXAMINATION TYPE: XR chest 1V portable DATE OF EXAM: 08/20/2016 6:31 AM COMPARISON: August 19, 2016 HISTORY: Tube placement TECHNIQUE: Single frontal view of the chest is obtained. FINDINGS: There is no pneumothorax. Midline tracheostomy and enteric tube are unchanged with the dis drea tip of the enteric tube coursing off the end of the image. Stable small pleural effusions and ass ociated bibasilar atelectasis are redemonstrated. The cardiac silhouette size is within normal limits . The osseous structures are intact. Numerous surgical clips are partially visualized of the lower neck. IMPRESSION: 1. Stable enteric tube and midline tracheostomy. 2. Stable small pleural effusions and associated bibasilar atelectasis.
[2016-08-20] MEDS: PANTOPRAZOLE 40 MG/10 ML VIAL IV SCH (08:26)
[2016-08-20] MEDS: ENOXAPARIN 40 MG/0.4 ML SYRINGE SQ SCH (08:26)
[2016-08-20] MEDS: CHLORHEXIDINE GLUCONATE 15 ML CUP MUCOUS MEM SCH ×2 (08:26→21:36)
[2016-08-20] MEDS: LACTULOSE 20 GM/30 ML CUP PO SCH ×3 (08:26→17:36)
[2016-08-20] MEDS: DILTIAZEM ORAL 30 MG TAB PO SCH ×3 (08:27→21:37)
[2016-08-20] MEDS: PIPERACILLIN-TAZOBACTAM 3.375 GM in DEXTROSE/WATER 1 50ML.BAG IVPB SCH ×2 (08:36→15:42)
[2016-08-20 09:13] LABS: ABG PCO2 35 mmHg (35-45); ABG PH 7.45 (7.35-7.45); ABG PO2 97 mmHg (83-108)
[2016-08-20 09:14] LABS: ABG Base Excess 0.3 mmol/L; ABG HCO3 24 mmol/L (21-25); ABG Oxygen Saturation 0.3 % (94-97); ABG TCO2 25 mmol/L (19-24)
[2016-08-20] MEDS: IPRATROPIUM-ALBUTEROL 3 ML NEB INHALATION SCH ×4 (11:28→19:39)
[2016-08-20] MEDS: BUDESONIDE 0.5 MG/2 ML NEBU INHALATION SCH ×2 (11:28→19:39)
[2016-08-20 11:48] LABS: Glucose,Whole Blood 183 mg/dL (75-99)
[2016-08-20] MEDS ORDERED: LACTULOSE 20 GM/30 ML CUP PO SCH ×2 (13:00→18:00)
--- NOTE | 2016-08-20 13:52 | PN ---
Adam is a 61-year-old gentleman admitted to ICU with respiratory failure, has history of tracheostomy. I am involved in his care because of episodes of tachyarrhythmia. Currently, patient remains in sinus rhythm, remains on Cardizem. He is not very responsive. On exam, heart rate is around 100 beats per minute, blood pressure is 120/74, respiratory rate is 18. Chest exam reveals diminished air entry. Heart exam reveals first and second heart sounds. No gallop. Labs show a hemoglobin of 14.2. Potassium is 4.3. BUN is 67, creatinine is 1.6. ASSESSMENT: Atrial tachyarrhythmia, currently in sinus rhythm. Continue current medications.
[2016-08-20] MEDS ORDERED: INSULIN DETEMIR 100 UNIT/ML 10 ML VIAL SQ SCH (14:15)
--- NOTE | 2016-08-20 14:25 | P.PN ---
Subjective Principal diagnosis: Acute exacerbation of COPD requiring intubation and mechanical ventilation. 61-year-old male patient with known history of meningeal cancer and COPD. The patient was diagnosed having laryngeal cancer approximately 4 years ago and he was treated with adjuvant/neoadjuvant chemotherapy following that he underwent a total laryngectomy at [facility]. This was followed by radiation therapy. S/P Valve was attempted to be placed on multiple occasions however this is not helpful and the speech and the valve Dislodging. Currently the Patient Is in the Hospital for Increased Shortness of Breath. The patient is known to have COPD. He quit smoking approximately 4 years ago. The patient has been using budesonide neb last treatment twice a day. He has no home oxygen. He was living his life normally and approximately 3 days ago started having increased chest congestion, shortness of breath and wheezing. He felt his chest was congested and he was getting plugged with mucus. Attempts to suction these mucous plugs were unsuccessful both at home and here in the hospital. Ultimately he was able to take out the small pieces of bloody mucoid secretions yesterday. His chest x-ray shows COPD otherwise there is no clearcut airspace disease or pneumonias. No chest pain. He has some impairment his renal function probably secondary to an acute kidney injury. His potassium level is also low and this needs to be replaced. No change in mental status. No nausea or vomiting. No history of any major swelling in the lower extremities. This is his first hospitalization over the past several years for any breathing complications. Otherwise this patient has been doing well. Patient was reevaluated today on 08/14/2016, apparently the patient developed significant and profound shortness of breath earlier today. I was notified by the nurse about his condition, and I have made arrangements for the patient to transfer to the ICU. Upon arrival to the ICU, the patient was noted to be in significant respiratory distress, and needed to be intubated. However considering the patient has only a stoma, I attempted to place a size 6 tracheostomy cuffed Shiley tube, but could not pass it all the way down. However I was able to pass a size 4 Shiley since the stoma was quite narrow. And I was able to connect that the mechanical ventilation and patient was ventilated easily. Cuff was inflated, and there was minimal volume loss. However ABG post intubation and post placement on mechanical ventilation showed a pO2 of 110 pCO2 of 49 and pH of 7.27 and this was on a 50% FiO2 with tidal volume of 500 and PEEP of 5. Rate was 20. Patient had a venous Doppler upon arrival to the ICU and it was negative for DVT this was done because of asymmetric swelling noted in the lower extremities. Chest x-ray showed some subsegmental atelectasis or possibly infiltrates in the right lower lobe and there was evidence of COPD and cardiomegaly. CBC showed leukocytosis with WBC count of 23.1 hemoglobin was 15.1 renal profile was abnormal with a BUN of 35 creatinine of 1.70 Patient was reevaluated today on 08/15/2016, remains on mechanical ventilation, and he is on 40% FiO2, with tidal volume of 550, respiratory rate of 20, and PEEP of 5. ABG was reviewed, and no changes were made in the vent settings. As a matter of fact I plan to hold sedation today, give the patient a weaning trial utilizing pressure support and CPAP, and if tolerated well I would basically proceed to trach collar. Chest x-ray showed mostly atelectasis at the bases, difficult to rule out early infiltrate in the right lower lobe there is also mild venous congestion, and there is evidence of COPD and cardiomegaly. Patient is presently on Levaquin empirically. CBC showed improvement in the leukocytosis with WBC count of 17.6. Hemoglobin is 12.9. Renal profile remains abnormal with a creatinine of 1.70 electrolytes are normal. Bicarb is 18. Influenza screen was negative. Medications were all reviewed patient remains on bronchodilators antibiotics and steroids. Patient was reevaluated today on 08/16/2016, patient remains on mechanical ventilation, chest x-ray is worsening a bit showing more atelectasis and more infiltrates in the lower lobes bilaterally, and suspect small bilateral pleural effusions. Hence the antibiotics will be broadened and I will include Zosyn in addition to Levaquin, and the patient will be given a trial of gentle diuresis. My plan again today is to consider placing the patient on pressure support and CPAP, and if tolerated I will go proceed to trach collar. His labs were reviewed and they seem to be relatively unremarkable. Renal profile is slightly abnormal with a creatinine of 1.30. White cell count is 13.7 Patient was reevaluated today on 08/17/2016, he remains on mechanical ventilation , chest x-ray showed some improvement in the by basilar areas of infiltrate and/ or atelectasis, ABG was reviewed, labs are all reviewed, there is evidence of leukocytosis with WBC count of 18.0. His ABG showed a pO2 of 85 pCO2 of 32 and pH of 7.42. This is on 40% FiO2, hence I was planning to place the patient on a trach collar today, and give him a trial of weaning, however as he woke up from sedation, patient apparently developed A. fib with RVR. Then would place him back on assist control mode of mechanical ventilation. His renal profile is about the same as yesterday, creatinine is 1.30, it was 1.77 on admission. Patient was reevaluated today on 08/18/2016, remains on mechanical ventilation, however as I evaluated the patient early this morning, he was noted to be extremely restless, agitated, stacking his breaths, did not seem to be very synchronous with the ventilator. And obviously he is doing a lot of work of breathing that was felt to be unnecessary hence I increased the sedation on this patient. I also raise the possibility of volume loss from the short tracheostomy and I discussed the condition with ENT who felt that they cannot do much for it. In the labs case scenario I could potentially insert a size 4 longer endotracheal tube as long as it is cuffed. No size 4 was available in the hospital with a cuff, the smallest they have is a size 5. For the time being I will keep the patient on a size 4 Shiley and we'll adjust his position so that we do not lose much volume was ventilating him. And his sedation was increased. ABG this point rate showed a pO2 of 72 pCO2 of 34 pH of 7.43 chest x -ray continues to show some atelectasis and infiltrates in the lower lobes. Patient is covered empirically for presumptive pneumonia and he is on broad- spectrum coverage including Levaquin and Zosyn. WBC is noted to be elevated at 19.1. Electrolytes were reviewed, BUN is 48 creatinine is 1.50. Clearly the patient is not ready for any weaning trials or extubation at this point. I have a strong feeling that the patient will be on a long-term ventilator on long -term basis. On 08/19/2016, patient remains on mechanical ventilation, he is quite sedated, and I plan to give him a sedation holiday early today, and possibly given a trial of trach collar. His tracheostomy seems to be functioning well this morning, no volume loss, and no air leak, hence I will hold on replacing that tracheostomy with a size 5.0 endotracheal tube with a cough. Chest x-ray continues to show by basilar infiltrates, ABG showed a pO2 of 90 pCO2 of 35 pH of 7.4 to he has leukocytosis with WBC count of 21.4, patient remains on Levaquin and Zosyn, and the Levaquin dose was adjusted because of his renal profile. Blood cultures have been negative and sputum cultures have been nondiagnostic. Patient was reevaluated today on 08/20/2016, remains on mechanical ventilation, sedation has been on hold almost for the last 24 hours, and patient does not seem to be waking up as expected. Hence serum ammonia level was done today, and it was significantly elevated. Hence we recommended increasing his lactulose. Patient is known to have history of liver cirrhosis, and he is usually on small dose of lactulose on a daily basis. I believe the patient has what seems to be a picture of hepatic encephalopathy, and hopefully as the ammonia level goes down, we expect to see a significant neurological improvement. Labs were reviewed today, ABG showed a pO2 of 97 pCO2 of 35 pH of 7.45. There is evidence of leukocytosis, WBC count is 24.4 hemoglobin is 14.2. Ammonia level today is 169, hence lactulose will be increased. Chest x-ray is showing a small left pleural effusion and minimal atelectasis at the right base. Objective - Vital Signs Vital signs: Vital Signs Temp 98.1 F 08/20/16 12:00 Pulse 103 H 08/20/16 14:00 Resp 28 H 08/20/16 14:00 BP 129/64 08/20/16 14:00 Pulse Ox 96 08/20/16 14:00 Intake & Output 08/19/16 08/20/16 08/20/16 18:59 06:59 18:59 Intake Total 1322.351 5589.5 1035.0 Output Total 700 1245 795 Balance 1006.202 507.5 240.0 Weight 121.3 kg Intake: IV 1090.0 1267.5 380.0 0.9 at KVO 90 230 30 Piperacillin-Tazobactam 3 100.0 62.5 50.0 .375 gm In Dextrose/Water 1 50ml.bag @ 12.5 mls/hr IVPB Q8HR [facility] Rx#: [id number] Sodium Chloride 0.45% 1, 900 975 300 000 ml @ 75 mls/hr IV . [id number] [facility] Rx#:[id number] Intake, IV Titration 136.202 150 Amount Diltiazem 125 mg In 23.167 Sodium Chloride 0.9% 100 ml @ 10 MG/HR 10 mls/hr IV .[id number] [facility] Rx#: [id number] Levofloxacin 250Mg-D5w 50 Pmx 250 mg In Dextrose/ Water 1 50ml.bag @ 50 mls /hr IVPB Q24H [facility] Rx#: [id number] Propofol 500 mg In Empty 63.035 Bag 1 bag @ Titrate IV . Q0M [facility] Rx#:[id number] Sodium Chloride 0.45% 1, 150 000 ml @ 50 mls/hr IV . Q20H [facility] Rx#:[id number] Tube Feeding 300 425 275 Other 180 60 230 Output: Urine 700 1245 795 Other: Voiding Method Indwelling Catheter Indwelling Catheter Indwelling Catheter - Exam Physical Exam: Revealed a 61-year-old white male on mechanical ventilation, patient is being ventilated via a small tracheostomy which was inserted when he arrived to the ICU few days ago in the stoma. It is a size 4.0 Shiley with a cuff HEENT:[Neck is supple.] [No neck masses.] [No thyromegaly.] [No JVD.] Tracheostomy seems to be intact Chest: [Diminished breath sounds at the bases no crackles or rhonchi or wheezes. ] Cardiac Exam: [Normal S1 and S2, no S3 gallop, no murmur.] Abdomen: [Soft, nontender, no megaly, no rebound, no guarding, normal bowel sounds.] Extremities: [No clubbing, no edema, no cyanosis.] Neurological Exam: [Unresponsive to deep painful stimuli, in spite of being off propofol, however his ammonia level was elevated, and that is being addressed. - Labs CBC & Chem 7: 08/20/16 04:23 08/20/16 04:23 Labs: Abnormal Lab Results - Last 24 Hours (Table) 08/19/16 08/19/16 08/20/16 Range/Units 17:26 23:54 04:23 WBC 24.4 H (3.8-10.6) k/uL RDW 17.1 H (11.5-15.5) % Plt Count 141 L (150-450) k/uL ABG Total CO2 (19-24) mmol/L ABG O2 Saturation (94-97) % Chloride (98-107) mmol/L BUN (9-20) mg/dL Creatinine (0.66-1.25) mg/dL Glucose (74-99) mg/dL POC Glucose (mg/dL) 159 H 180 H (75-99) mg/dL Calcium (8.4-10.2) mg/dL Phosphorus (2.5-4.5) mg/dL Magnesium (1.6-2.3) mg/dL Total Bilirubin (0.2-1.3) mg/dL Ammonia (<30) umol/L Total Protein (6.3-8.2) g/dL Albumin (3.5-5.0) g/dL 08/20/16 08/20/16 08/20/16 Range/Units 04:23 05:52 08:51 WBC (3.8-10.6) k/uL RDW (11.5-15.5) % Plt Count (150-450) k/uL ABG Total CO2 25 H (19-24) mmol/L ABG O2 Saturation 0.3 L (94-97) % Chloride 111 H (98-107) mmol/L BUN 67 H (9-20) mg/dL Creatinine 1.60 H (0.66-1.25) mg/dL Glucose 202 H (74-99) mg/dL POC Glucose (mg/dL) 195 H (75-99) mg/dL Calcium 8.2 L (8.4-10.2) mg/dL Phosphorus 5.4 H (2.5-4.5) mg/dL Magnesium 3.5 H (1.6-2.3) mg/dL Total Bilirubin 1.8 H (0.2-1.3) mg/dL Ammonia (<30) umol/L Total Protein 5.4 L (6.3-8.2) g/dL Albumin 2.5 L (3.5-5.0) g/dL 08/20/16 08/20/16 Range/Units 10:27 11:46 WBC (3.8-10.6) k/uL RDW (11.5-15.5) % Plt Count (150-450) k/uL ABG Total CO2 (19-24) mmol/L ABG O2 Saturation (94-97) % Chloride (98-107) mmol/L BUN (9-20) mg/dL Creatinine (0.66-1.25) mg/dL Glucose (74-99) mg/dL POC Glucose (mg/dL) 183 H (75-99) mg/dL Calcium (8.4-10.2) mg/dL Phosphorus (2.5-4.5) mg/dL Magnesium (1.6-2.3) mg/dL Total Bilirubin (0.2-1.3) mg/dL Ammonia 169 H (<30) umol/L Total Protein (6.3-8.2) g/dL Albumin (3.5-5.0) g/dL Assessment and Plan Plan: 1 Acute respiratory failure requiring intubation and mechanical ventilation. This is secondary to COPD exacerbation by basilar pneumonia, possibly gram- negative in nature. Community-acquired, chest x-ray over the last few days has been suggestive of pneumonia, could very well be a gram-negative pneumonia considering his underlying COPD. Hence I broadened the spectrum of antibiotics , and now he is on Zosyn and Levaquin. Sputum cultures have been nondiagnostic. 2 history of laryngeal cancer and previous total laryngectomy and previous tracheotomy. 3 acute kidney injury, seems to be worse today, hence I recommended adjusting the dose of Levaquin. 4 history of congestive heart failure. 5 acute hepatic encephalopathy with significantly elevated ammonia level, that is being addressed, and hopefully as the ammonia level comes down, we will see if significant neurological improvement, I believe the patient should be seriously considered for select care specialty placement however prior to that the patient may have to have a PEG tube placement. This could possibly be done next week. Recommendation: Maintain patient on mechanical ventilation, continue supportive care measures including ventilatory support, nutritional support, continue antibiotics, bronchodilators, GI and DVT prophylaxis, we'll give the patient possibly today for trial of trach collar off mechanical ventilation. Continue lactulose, and once the patient wakes up, consider placed on a trach collar. Critical care time is 32 minutes discussed his condition with today. I was planning to send the patient down for a CT of the brain, however will hold on that for now until the ammonia level improves. Time with Patient: Greater than 30
[2016-08-20] MEDS: INSULIN DETEMIR 100 UNIT/ML 10 ML VIAL SQ SCH (15:20)
[2016-08-20] MEDS: LEVOFLOXACIN 250MG-D5W PMX 250 MG in DEXTROSE/WATER 1 50ML.BAG IVPB SCH (15:42)
[2016-08-20 18:03] LABS: Glucose,Whole Blood 197 mg/dL (75-99)
--- NOTE | 2016-08-20 19:15 | P.PN ---
Subjective 71-year-old gentleman with history of laryngeal cancer underwent chemoradiation and surgical intervention in the past comes in to the hospital with progressive worsening of breathing difficulty associated with cough that has been nonproductive in nature. Patient was noted to have diffuse rhonchi and initial evaluation. Patient was thereafter required to be decannulated on the previous tracheotomy site. This was done with a size 4 shiley and was cough. Patient was started on empiric antibiotic therapy. Breathing treatments and steroids were started. Thereafter however patient continues to have thick mucous secretions through the ET tube. Weaning trials were attempted today however patient did not tolerated. Patient was currently on minimal sedation with propofol. However apparently off sedation patient has multiple episodes of tachypnea likely associated with anxiety. No other overnight events reported. 08/17/2016 Patient apparently went into atrial fibrillation with rapid ventricular rate. Continues to have thick moderate ET tube secretions. No other overnight events reported. Patient is currently sedated and on ventilator support. Issues with cuff leak around the tube. Currently back on the ventilator, on sedation with propofol Sinus rhythm. 08/19/2016 Patient has been off sedation. Chest x-ray this a.m. was slightly worse. During the time of my examination patient was not awake currently maintained on vent support. 2016 Not arousable after being off sedation for over 30 hrs On vent support. Objective - Vital Signs Vital signs: Vital Signs Temp 98.3 F 08/20/16 16:00 Pulse 106 H 08/20/16 19:00 Resp 26 H 08/20/16 19:00 BP 135/70 08/20/16 19:00 Pulse Ox 95 08/20/16 19:00 Intake & Output 08/20/16 08/20/16 08/21/16 06:59 18:59 06:59 Intake Total 1752.5 1660.0 87.5 Output Total 1245 1145 125 Balance 507.5 515.0 -37.5 Weight 121.3 kg Intake: IV 1267.5 425.0 12.5 0.9 at KVO 230 50 0 Piperacillin-Tazobactam 3 62.5 75.0 12.5 .375 gm In Dextrose/Water 1 50ml.bag @ 12.5 mls/hr IVPB Q8HR [facility] Rx#: [id number] Sodium Chloride 0.45% 1, 975 300 000 ml @ 75 mls/hr IV . [id number] [facility] Rx#:[id number] Intake, IV Titration 350 50 Amount Levofloxacin 250Mg-D5w 50 Pmx 250 mg In Dextrose/ Water 1 50ml.bag @ 50 mls /hr IVPB Q24H [facility] Rx#: [id number] Sodium Chloride 0.45% 1, 300 50 000 ml @ 50 mls/hr IV . Q20H [facility] Rx#:[id number] Tube Feeding 425 425 25 Other 60 460 Output: Urine 1245 1145 125 Other: Voiding Method Indwelling Catheter Indwelling Catheter # Bowel Movements 1 - Exam Gen. appearance sedated Neck patient has a cuffed size 4 pediatric tube Lungs diffuse rhonchi air movement appreciated, mod. amounts of reddish secretions noted. Heart S1-S2 heard regular rate and rhythm no murmurs. Abdomen is soft nontender no organomegaly Lower extremities no edema noted. - Labs CBC & Chem 7: 08/20/16 04:23 08/20/16 04:23 Labs: Abnormal Lab Results - Last 24 Hours (Table) 08/19/16 08/20/16 08/20/16 Range/Units 23:54 04:23 04:23 WBC 24.4 H (3.8-10.6) k/uL RDW 17.1 H (11.5-15.5) % Plt Count 141 L (150-450) k/uL ABG Total CO2 (19-24) mmol/L ABG O2 Saturation (94-97) % Chloride 111 H (98-107) mmol/L BUN 67 H (9-20) mg/dL Creatinine 1.60 H (0.66-1.25) mg/dL Glucose 202 H (74-99) mg/dL POC Glucose (mg/dL) 180 H (75-99) mg/dL Calcium 8.2 L (8.4-10.2) mg/dL Phosphorus 5.4 H (2.5-4.5) mg/dL Magnesium 3.5 H (1.6-2.3) mg/dL Total Bilirubin 1.8 H (0.2-1.3) mg/dL Ammonia (<30) umol/L Total Protein 5.4 L (6.3-8.2) g/dL Albumin 2.5 L (3.5-5.0) g/dL 08/20/16 08/20/16 08/20/16 Range/Units 05:52 08:51 10:27 WBC (3.8-10.6) k/uL RDW (11.5-15.5) % Plt Count (150-450) k/uL ABG Total CO2 25 H (19-24) mmol/L ABG O2 Saturation 0.3 L (94-97) % Chloride (98-107) mmol/L BUN (9-20) mg/dL Creatinine (0.66-1.25) mg/dL Glucose (74-99) mg/dL POC Glucose (mg/dL) 195 H (75-99) mg/dL Calcium (8.4-10.2) mg/dL Phosphorus (2.5-4.5) mg/dL Magnesium (1.6-2.3) mg/dL Total Bilirubin (0.2-1.3) mg/dL Ammonia 169 H (<30) umol/L Total Protein (6.3-8.2) g/dL Albumin (3.5-5.0) g/dL 08/20/16 08/20/16 Range/Units 11:46 18:02 WBC (3.8-10.6) k/uL RDW (11.5-15.5) % Plt Count (150-450) k/uL ABG Total CO2 (19-24) mmol/L ABG O2 Saturation (94-97) % Chloride (98-107) mmol/L BUN (9-20) mg/dL Creatinine (0.66-1.25) mg/dL Glucose (74-99) mg/dL POC Glucose (mg/dL) 183 H 197 H (75-99) mg/dL Calcium (8.4-10.2) mg/dL Phosphorus (2.5-4.5) mg/dL Magnesium (1.6-2.3) mg/dL Total Bilirubin (0.2-1.3) mg/dL Ammonia (<30) umol/L Total Protein (6.3-8.2) g/dL Albumin (3.5-5.0) g/dL Assessment and Plan Plan: #1 acute hypoxic hypercapnic respiratory failure sec A secondary to acute exacerbation of COPD from an acute episode of tracheobronchitis. #2 history of laryngeal cancer status post chemoradiation and surgical intervention #3 acute kidney injury that is improving #4 acute on chronic mildly decompensated diastolic heart failure #5 non-anion gap metabolic acidosis #6 leukocytosis #Hypothyroidism #8 atrial fibrillation with rapid ventricular rate currently on a Cardizem drip , NSR now, paroxysmal in nature. #9 healthcare acquired pneumonia likely gram-negative in the left lower lobe Acute metabolic encephalopathy sec to hyperammonemia due liver cirrhosis. Plan Continue ventilator support. Lactulose therapy. If pt is not weanable after improvement of mentation due to small trach, pt may need to transferred to higher level of care for advanced ENT care. Antibiotic therapy. vent management per pulmonary;. Patient is critically ill.
[2016-08-20] MEDS: LACTULOSE 20 GM/30 ML CUP NG-TUBE SCH (21:36)
[2016-08-20] MEDS: LEVOTHYROXINE 100 MCG TAB PO SCH (21:37)
[2016-08-21] MEDS: PIPERACILLIN-TAZOBACTAM 3.375 GM in DEXTROSE/WATER 1 50ML.BAG IVPB SCH ×3 (00:10→18:33)
[2016-08-21] MEDS: INSULIN LISPRO (humaLOG) 300 UNIT/3 ML VIAL SQ SCH ×5 (00:10→20:30)
[2016-08-21] MEDS: methylPREDNISolone SOD SUCCI 125 MG/2 ML VIAL IV SCH ×4 (00:10→18:34)
[2016-08-21 00:12] LABS: Glucose,Whole Blood 186 mg/dL (75-99)
[2016-08-21] MEDS: MORPHINE SULFATE 4 MG/ML SYRINGE IVP PRN (00:36)
[2016-08-21 04:33] LABS: Anisocytosis Slight; CH 31.7; CHCM 32.2; HCT 48.4 % (39.0-53.0); HDW 3.17; HGB 15.2 gm/dL (13.0-17.5); Hypochromasia Slight; Large Platelets Flag Marked; MCH 31.2 pg (25.0-35.0); MCHC 31.4 g/dL (31.0-37.0); MCV 99.3 fL (80.0-100.0); Macrocytosis Slight; Mean Platelet Volume 12.7; RBC 4.87 m/uL (4.30-5.90); RDW 17.4 % (11.5-15.5)
[2016-08-21 04:44] LABS: ALT 69 U/L (21-72); AST 55 U/L (17-59); Alkaline Phosphatase 76 U/L (38-126); Anion Gap 10 mmol/L; Blood Urea Nitrogen 76 mg/dL (9-20); Calcium 8.7 mg/dL (8.4-10.2); Carbon Dioxide 24 mmol/L (22-30); Chloride 117 mmol/L (98-107); Glucose 190 mg/dL (74-99); Magnesium 4.2 mg/dL (1.6-2.3); Non-African American GFR(MDRD) 52 (>60 ml/min/1.73 sqM); Phosphorous 5.4 mg/dL (2.5-4.5); Potassium 4.3 mmol/L (3.5-5.1); Sodium 151 mmol/L (137-145); Total Protein 5.8 g/dL (6.3-8.2)
[2016-08-21 04:54] LABS: WBC 26.4 k/uL (3.8-10.6)
[2016-08-21] MEDS: LORazepam 2 MG/ML SYRINGE IV PRN (05:26)
[2016-08-21 06:08] LABS: Glucose,Whole Blood 183 mg/dL (75-99)
[2016-08-21] MEDS: BUDESONIDE 0.5 MG/2 ML NEBU INHALATION SCH (07:35)
[2016-08-21] MEDS: IPRATROPIUM-ALBUTEROL 3 ML NEB INHALATION SCH ×4 (07:36→23:03)
--- NOTE | 2016-08-21 08:18 | XR ---
EXAMINATION TYPE: XR chest 1V portable DATE OF EXAM: 08/21/2016 6:49 AM HISTORY: Cough. REFERENCE: Previous study dated 08/20/2016. FINDINGS: There has been extensive neck surgery. There is a tracheostomy tube in place. Its tip overlies the tracheal air column in this single fronta l projection. There is left basilar airspace disease. There is right basilar atelectasis. This is unchanged from pr evious. Heart size is upper limits of normal. I cannot exclude small effusions. IMPRESSION: NO SIGNIFICANT INTERVAL CHANGE IN THE APPEARANCE OF THE CHEST.
[2016-08-21 08:26] LABS: ABG Base Excess 0.2 mmol/L; ABG HCO3 24 mmol/L (21-25); ABG PCO2 38 mmHg (35-45); ABG PH 7.42 (7.35-7.45); ABG PO2 93 mmHg (83-108); ABG TCO2 25 mmol/L (19-24)
[2016-08-21] MEDS: DILTIAZEM ORAL 30 MG TAB PO SCH ×3 (09:12→21:25)
[2016-08-21] MEDS: CHLORHEXIDINE GLUCONATE 15 ML CUP MUCOUS MEM SCH ×2 (09:12→21:25)
[2016-08-21] MEDS: LACTULOSE 20 GM/30 ML CUP NG-TUBE SCH ×4 (09:13→21:25)
[2016-08-21] MEDS: ENOXAPARIN 40 MG/0.4 ML SYRINGE SQ SCH (09:13)
[2016-08-21] MEDS: PANTOPRAZOLE 40 MG/10 ML VIAL IV SCH (09:14)
[2016-08-21] MEDS: SODIUM CHLORIDE 0.45% 1,000 ML IV SCH ×2 (09:45→20:29)
--- NOTE | 2016-08-21 11:45 | PN ---
Patient is off sedation but is still not waking up, remains in sinus rhythm with sinus tachycardia. On Cardizem 30 q.8. I am going to add Tenormin 25 mg daily. On exam, heart rate is around 88 to 110 beats per minute, blood pressure is 120/60, respiratory rate is 18. Chest exam reveals diminished air entry at the bases. Heart exam reveals first and second heart sounds. No gallop. Exam of the extremities reveals 1+ edema. Peripheral pulses are felt. ASSESSMENT: Atrial tachycardia. PLAN: 1. I will add Tenormin 25 mg daily. 2. Continue the Cardizem. 3. Respiratory failure.
[2016-08-21 11:47] VITALS: BMI 40.3
[2016-08-21 11:55] LABS: Glucose,Whole Blood 180 mg/dL (75-99)
--- NOTE | 2016-08-21 12:05 | P.PN ---
Subjective 61-year-old male patient with known history of meningeal cancer and COPD. The patient was diagnosed having laryngeal cancer approximately 4 years ago and he was treated with adjuvant/neoadjuvant chemotherapy following that he underwent a total laryngectomy at [facility]. This was followed by radiation therapy. S/P Valve was attempted to be placed on multiple occasions however this is not helpful and the speech and the valve Dislodging. Currently the Patient Is in the Hospital for Increased Shortness of Breath. The patient is known to have COPD. He quit smoking approximately 4 years ago. The patient has been using budesonide neb last treatment twice a day. He has no home oxygen. He was living his life normally and approximately 3 days ago started having increased chest congestion, shortness of breath and wheezing. He felt his chest was congested and he was getting plugged with mucus. Attempts to suction these mucous plugs were unsuccessful both at home and here in the hospital. Ultimately he was able to take out the small pieces of bloody mucoid secretions yesterday. His chest x-ray shows COPD otherwise there is no clearcut airspace disease or pneumonias. No chest pain. He has some impairment his renal function probably secondary to an acute kidney injury. His potassium level is also low and this needs to be replaced. No change in mental status. No nausea or vomiting. No history of any major swelling in the lower extremities. This is his first hospitalization over the past several years for any breathing complications. Otherwise this patient has been doing well. The patient is seen again today 08/21/2016 in follow-up. He has failed weaning trials. He has been off sedation for 2 days now without much response. He responds to deep painful stimuli at best. Does not open his eyes. Follows no commands. He has had ongoing issues with elevated ammonia levels. His cirrhosis. His current vent settings are assist-control 26, tidal volume 550, FiO2 50% and a PEEP of 5. Morning blood gases reveal a P O2 of 93, pCO2 38, pH 7.42. Today's chest x-ray revealed evidence of basilar atelectasis and small pleural effusions. Current white count 26.4, hemoglobin 15.2. Creatinine 1.40. Objective - Vital Signs Vital signs: Vital Signs Temp 98.0 F 08/21/16 04:00 Pulse 111 H 08/21/16 11:37 Resp 25 H 08/21/16 11:00 BP 133/66 08/21/16 11:00 Pulse Ox 95 08/21/16 11:00 Intake & Output 08/20/16 08/21/16 08/21/16 18:59 06:59 18:59 Intake Total 1660.0 942.5 410.0 Output Total 1145 1529 845 Balance 515.0 -586.5 -435.0 Weight 116.7 kg 116.7 kg Intake: IV 425.0 397.5 310.0 0.9 at KVO 50 260 10 Piperacillin-Tazobactam 3 75.0 87.5 50.0 .375 gm In Dextrose/Water 1 50ml.bag @ 12.5 mls/hr IVPB Q8HR [facility] Rx#: [id number] Sodium Chloride 0.45% 1, 50 250 000 ml @ 50 mls/hr IV . Q20H [facility] Rx#:[id number] Sodium Chloride 0.45% 1, 300 000 ml @ 75 mls/hr IV . [id number] [facility] Rx#:[id number] Intake, IV Titration 350 50 Amount Levofloxacin 250Mg-D5w 50 Pmx 250 mg In Dextrose/ Water 1 50ml.bag @ 50 mls /hr IVPB Q24H [facility] Rx#: [id number] Sodium Chloride 0.45% 1, 300 50 000 ml @ 50 mls/hr IV . Q20H [facility] Rx#:[id number] Tube Feeding 425 375 100 Other 460 120 Output: Urine 1145 1429 645 Stool 100 200 Other: Voiding Method Indwelling Catheter Indwelling Catheter Indwelling Catheter # Bowel Movements 1 1 - Exam GENERAL EXAM: Unresponsive despite being off sedation 48 hours. HEAD: Normocephalic. EYES: Normal reaction of pupils, equal size. NOSE: Clear with pink turbinates. THROAT: No erythema or exudates. NECK: Tracheostomy tube secured in place. CHEST: No chest wall deformity. LUNGS: Equal air entry with her cousin the posterior bases.. CVS: S1 and S2 normal with no audible murmurs, regular rhythm. ABDOMEN: No hepatosplenomegaly, normal bowel sounds, no guarding or rigidity. Extremities: There is no significant peripheral edema. No clubbing, no cyanosis. Peripheral pulses are intact. - Labs CBC & Chem 7: 08/21/16 04:18 08/21/16 04:18 Labs: Abnormal Lab Results - Last 24 Hours (Table) 08/20/16 08/21/16 08/21/16 Range/Units 18:02 00:09 04:18 WBC 26.4 H* (3.8-10.6) k/uL RDW 17.4 H (11.5-15.5) % ABG Total CO2 (19-24) mmol/L Sodium (137-145) mmol/L Chloride (98-107) mmol/L BUN (9-20) mg/dL Creatinine (0.66-1.25) mg/dL Glucose (74-99) mg/dL POC Glucose (mg/dL) 197 H 186 H (75-99) mg/dL Phosphorus (2.5-4.5) mg/dL Magnesium (1.6-2.3) mg/dL Total Bilirubin (0.2-1.3) mg/dL Ammonia (<30) umol/L Total Protein (6.3-8.2) g/dL Albumin (3.5-5.0) g/dL 08/21/16 08/21/16 08/21/16 Range/Units 04:18 04:18 06:06 WBC (3.8-10.6) k/uL RDW (11.5-15.5) % ABG Total CO2 (19-24) mmol/L Sodium 151 H (137-145) mmol/L Chloride 117 H (98-107) mmol/L BUN 76 H (9-20) mg/dL Creatinine 1.40 H (0.66-1.25) mg/dL Glucose 190 H (74-99) mg/dL POC Glucose (mg/dL) 183 H (75-99) mg/dL Phosphorus 5.4 H (2.5-4.5) mg/dL Magnesium 4.2 H (1.6-2.3) mg/dL Total Bilirubin 2.0 H (0.2-1.3) mg/dL Ammonia 171 H (<30) umol/L Total Protein 5.8 L (6.3-8.2) g/dL Albumin 2.8 L (3.5-5.0) g/dL 08/21/16 Range/Units 07:28 WBC (3.8-10.6) k/uL RDW (11.5-15.5) % ABG Total CO2 25 H (19-24) mmol/L Sodium (137-145) mmol/L Chloride (98-107) mmol/L BUN (9-20) mg/dL Creatinine (0.66-1.25) mg/dL Glucose (74-99) mg/dL POC Glucose (mg/dL) (75-99) mg/dL Phosphorus (2.5-4.5) mg/dL Magnesium (1.6-2.3) mg/dL Total Bilirubin (0.2-1.3) mg/dL Ammonia (<30) umol/L Total Protein (6.3-8.2) g/dL Albumin (3.5-5.0) g/dL Assessment and Plan Plan: 1 Acute respiratory failure requiring intubation and mechanical ventilation. This is secondary to COPD exacerbation by basilar pneumonia, possibly gram- negative in nature. Community-acquired, chest x-ray over the last few days has been suggestive of pneumonia, could very well be a gram-negative pneumonia considering his underlying COPD. Hence broadened the spectrum of antibiotics, and now he is on Zosyn and Levaquin. Sputum cultures have been nondiagnostic. 2 history of laryngeal cancer and previous total laryngectomy and previous tracheotomy. 3 acute kidney injury, seems to be worse today, hence I recommended adjusting the dose of Levaquin. 4 history of congestive heart failure. 5 acute hepatic encephalopathy with significantly elevated ammonia level, that is being addressed, and hopefully as the ammonia level comes down, Plan: The patient was seen and evaluated by Dr. Colby. His chest x-ray and labs were reviewed. We'll go ahead and get a computed tomography scan of the brain. His ammonia levels are being addressed. We'll hold off any sedation including narcotics and benzodiazepines. There may be retained based on his liver failure could be causing some of his excessive unresponsiveness. The patient remains a full code at this point but we may have to have further discussions with the family and they plan to proceed with full supportive care. We'll await computed tomography scan results. Continue to follow and make further recommendations based on his clinical status. Critical care time 36 minutes. Time with Patient: Greater than 30
[2016-08-21] MEDS: ATENOLOL 25 MG TAB PO SCH (14:12)
--- NOTE | 2016-08-21 14:23 | CT ---
EXAMINATION TYPE: CT brain wo con DATE OF EXAM: 08/21/2016 1:59 PM COMPARISON: NONE HISTORY: Altered mental status CT DLP: 1137.5 mGycm Automated exposure control for dose reduction was used. Helical acquisition through the brain. FINDINGS: There is no acute intracranial hemorrhage, mass effect, or midline shift identified. The ventricles and sulci are within normal limits in size. There are cerebral vascular calcifications present. Corti mik atrophy is likely age-related. Periventricular white matter demyelination is present. The globes are intact and the visualized sinuses are remarkable for minimal mucosal disease in the maxillary sin us, ethmoid air cells. There is a hypodense linear abnormality present coursing within the nasal cavi ty compatible with NG tube. The pituitary appears enlarged. IMPRESSION: I question pituitary enlargement, there may be underlying pituitary adenoma, brain MRI may be of bene fit. Age-related changes of atrophy and probable chronic small vessel ischemia.
[2016-08-21] MEDS ORDERED: LEVOFLOXACIN 500MG-D5W PMX 500 MG in DEXTROSE/WATER 1 100ML.BAG IVPB SCH (16:00)
[2016-08-21] MEDS ORDERED: PROPOFOL 500 MG in EMPTY BAG 1 BAG IV SCH (16:30)
[2016-08-21] MEDS: PROPOFOL 500 MG in EMPTY BAG 1 BAG IV SCH ×2 (17:19→20:13)
--- NOTE | 2016-08-21 17:40 | P.PN ---
Subjective 71-year-old gentleman with history of laryngeal cancer underwent chemoradiation and surgical intervention in the past comes in to the hospital with progressive worsening of breathing difficulty associated with cough that has been nonproductive in nature. Patient was noted to have diffuse rhonchi and initial evaluation. Patient was thereafter required to be decannulated on the previous tracheotomy site. This was done with a size 4 shiley and was cough. Patient was started on empiric antibiotic therapy. Breathing treatments and steroids were started. Thereafter however patient continues to have thick mucous secretions through the ET tube. Weaning trials were attempted today however patient did not tolerated. Patient was currently on minimal sedation with propofol. However apparently off sedation patient has multiple episodes of tachypnea likely associated with anxiety. No other overnight events reported. 08/17/2016 Patient apparently went into atrial fibrillation with rapid ventricular rate. Continues to have thick moderate ET tube secretions. No other overnight events reported. Patient is currently sedated and on ventilator support. Issues with cuff leak around the tube. Currently back on the ventilator, on sedation with propofol Sinus rhythm. 08/19/2016 Patient has been off sedation. Chest x-ray this a.m. was slightly worse. During the time of my examination patient was not awake currently maintained on vent support. 2016 Not arousable after being off sedation for over 30 hrs On vent support. 2016 No improvement. FMS in place, has increased stool output Breath stacking on the vent. Objective - Vital Signs Vital signs: Vital Signs Temp 98.4 F 08/21/16 12:00 Pulse 100 08/21/16 17:00 Resp 26 H 08/21/16 17:00 BP 149/76 08/21/16 17:00 Pulse Ox 94 L 08/21/16 17:00 Intake & Output 08/20/16 08/21/16 08/21/16 18:59 06:59 18:59 Intake Total 1660.0 942.5 770.0 Output Total 1145 1529 2195 Balance 515.0 -586.5 -1425.0 Weight 116.7 kg 116.7 kg Intake: IV 425.0 397.5 610.0 0.9 at KVO 50 260 10 Piperacillin-Tazobactam 3 75.0 87.5 50.0 .375 gm In Dextrose/Water 1 50ml.bag @ 12.5 mls/hr IVPB Q8HR [facility] Rx#: [id number] Sodium Chloride 0.45% 1, 50 550 000 ml @ 50 mls/hr IV . Q20H [facility] Rx#:[id number] Sodium Chloride 0.45% 1, 300 000 ml @ 75 mls/hr IV . [id number] [facility] Rx#:[id number] Intake, IV Titration 350 50 Amount Levofloxacin 250Mg-D5w 50 Pmx 250 mg In Dextrose/ Water 1 50ml.bag @ 50 mls /hr IVPB Q24H [facility] Rx#: [id number] Sodium Chloride 0.45% 1, 300 50 000 ml @ 50 mls/hr IV . Q20H [facility] Rx#:[id number] Tube Feeding 425 375 160 Other 460 120 Output: Urine 1145 1429 1295 Stool 100 900 Other: Voiding Method Indwelling Catheter Indwelling Catheter Indwelling Catheter # Bowel Movements 1 1 - Exam Gen. appearance sedated Neck patient has a cuffed size 4 pediatric tube Lungs diffuse rhonchi air movement appreciated, mod. amounts of reddish secretions noted. Heart S1-S2 heard regular rate and rhythm no murmurs. Abdomen is soft nontender no organomegaly Lower extremities no edema noted. - Labs CBC & Chem 7: 08/21/16 04:18 08/21/16 04:18 Labs: Abnormal Lab Results - Last 24 Hours (Table) 08/20/16 08/21/16 08/21/16 Range/Units 18:02 00:09 04:18 WBC 26.4 H* (3.8-10.6) k/uL RDW 17.4 H (11.5-15.5) % ABG Total CO2 (19-24) mmol/L Sodium (137-145) mmol/L Chloride (98-107) mmol/L BUN (9-20) mg/dL Creatinine (0.66-1.25) mg/dL Glucose (74-99) mg/dL POC Glucose (mg/dL) 197 H 186 H (75-99) mg/dL Phosphorus (2.5-4.5) mg/dL Magnesium (1.6-2.3) mg/dL Total Bilirubin (0.2-1.3) mg/dL Ammonia (<30) umol/L Total Protein (6.3-8.2) g/dL Albumin (3.5-5.0) g/dL 08/21/16 08/21/16 08/21/16 Range/Units 04:18 04:18 06:06 WBC (3.8-10.6) k/uL RDW (11.5-15.5) % ABG Total CO2 (19-24) mmol/L Sodium 151 H (137-145) mmol/L Chloride 117 H (98-107) mmol/L BUN 76 H (9-20) mg/dL Creatinine 1.40 H (0.66-1.25) mg/dL Glucose 190 H (74-99) mg/dL POC Glucose (mg/dL) 183 H (75-99) mg/dL Phosphorus 5.4 H (2.5-4.5) mg/dL Magnesium 4.2 H (1.6-2.3) mg/dL Total Bilirubin 2.0 H (0.2-1.3) mg/dL Ammonia 171 H (<30) umol/L Total Protein 5.8 L (6.3-8.2) g/dL Albumin 2.8 L (3.5-5.0) g/dL 08/21/16 08/21/16 Range/Units 07:28 11:55 WBC (3.8-10.6) k/uL RDW (11.5-15.5) % ABG Total CO2 25 H (19-24) mmol/L Sodium (137-145) mmol/L Chloride (98-107) mmol/L BUN (9-20) mg/dL Creatinine (0.66-1.25) mg/dL Glucose (74-99) mg/dL POC Glucose (mg/dL) 180 H (75-99) mg/dL Phosphorus (2.5-4.5) mg/dL Magnesium (1.6-2.3) mg/dL Total Bilirubin (0.2-1.3) mg/dL Ammonia (<30) umol/L Total Protein (6.3-8.2) g/dL Albumin (3.5-5.0) g/dL Assessment and Plan Plan: #1 acute hypoxic hypercapnic respiratory failure sec A secondary to acute exacerbation of COPD from an acute episode of tracheobronchitis. #2 history of laryngeal cancer status post chemoradiation and surgical intervention #3 acute kidney injury that is improving #4 acute on chronic mildly decompensated diastolic heart failure #5 non-anion gap metabolic acidosis #6 leukocytosis #Hypothyroidism #8 atrial fibrillation with rapid ventricular rate #9 healthcare acquired pneumonia likely gram-negative in the left lower lobe Acute metabolic encephalopathy sec to hyperammonemia due liver cirrhosis. Plan Continue ventilator support. Lactulose therapy. add rifaximin vent management per pulmonary;. Patient is critically ill.
[2016-08-21 18:34] LABS: Glucose,Whole Blood 214 mg/dL (75-99)
[2016-08-21] MEDS: FORMOTEROL FUMARATE 20 MCG/2 ML NEBU INHALATION SCH (19:16)
[2016-08-21] MEDS: BUDESONIDE 1 MG/2 ML NEBU INHALATION SCH (19:16)
[2016-08-21] MEDS ORDERED: ALBUTEROL NEB (CONC) 2.5 MG/0.5 ML INHALATION SCH (20:00)
[2016-08-21] MEDS ORDERED: IPRATROPIUM 0.5 MG/2.5 ML NEBU INHALATION SCH (20:00)
[2016-08-21 20:19] LABS: Glucose,Whole Blood 167 mg/dL (75-99)
[2016-08-21] MEDS: LEVOTHYROXINE 100 MCG TAB PO SCH (21:25)
[2016-08-21] MEDS: RIFAXIMIN 550 MG TABLET PO SCH (21:25)
[2016-08-21] MEDS: INSULIN DETEMIR 100 UNIT/ML 10 ML VIAL SQ SCH (21:27)
[2016-08-21] MEDS ORDERED: PROPOFOL 50 ML IV ONE (22:35)
[2016-08-22 00:10] LABS: Glucose,Whole Blood 159 mg/dL (75-99)
[2016-08-22] MEDS: PIPERACILLIN-TAZOBACTAM 3.375 GM in DEXTROSE/WATER 1 50ML.BAG IVPB SCH ×2 (00:14→08:43)
[2016-08-22] MEDS: methylPREDNISolone SOD SUCCI 125 MG/2 ML VIAL IV SCH ×4 (00:15→18:38)
[2016-08-22] MEDS: INSULIN LISPRO (humaLOG) 300 UNIT/3 ML VIAL SQ SCH ×6 (00:15→20:30)
[2016-08-22] MEDS: PROPOFOL 500 MG in EMPTY BAG 1 BAG IV SCH ×5 (02:17→20:28)
[2016-08-22] MEDS: IPRATROPIUM-ALBUTEROL 3 ML NEB INHALATION SCH ×6 (03:10→23:13)
[2016-08-22 04:33] LABS: Anisocytosis Slight; CH 31.6; CHCM 31.5; HCT 51.4 % (39.0-53.0); HDW 3.12; HGB 16.1 gm/dL (13.0-17.5); Hypochromasia Slight; Large Platelets Flag Marked; MCH 31.7 pg (25.0-35.0); MCHC 31.3 g/dL (31.0-37.0); MCV 101.3 fL (80.0-100.0); Macrocytosis Moderate; Mean Platelet Volume 12.5; RBC 5.08 m/uL (4.30-5.90); RDW 17.9 % (11.5-15.5); WBC 24.8 k/uL (3.8-10.6)
[2016-08-22 04:36] LABS: Glucose,Whole Blood 194 mg/dL (75-99)
[2016-08-22 04:42] LABS: ALT 112 U/L (21-72); AST 111 U/L (17-59); Alkaline Phosphatase 119 U/L (38-126); Anion Gap 10 mmol/L; Blood Urea Nitrogen 76 mg/dL (9-20); Calcium 9.2 mg/dL (8.4-10.2); Carbon Dioxide 25 mmol/L (22-30); Glucose 233 mg/dL (74-99); Non-African American GFR(MDRD) 52 (>60 ml/min/1.73 sqM); Phosphorous 5.4 mg/dL (2.5-4.5); Potassium 3.8 mmol/L (3.5-5.1); Sodium 159 mmol/L (137-145); Total Bilirubin 1.8 mg/dL (0.2-1.3); Total Protein 5.7 g/dL (6.3-8.2)
[2016-08-22 04:51] LABS: Chloride 124 mmol/L (98-107); Magnesium 4.8 mg/dL (1.6-2.3)
[2016-08-22] MEDS ORDERED: PROPOFOL 50 ML IV ONE ×2 (05:08→07:29)
[2016-08-22 05:11] LABS: ABG HCO3 23 mmol/L (21-25); ABG PCO2 36 mmHg (35-45); ABG PH 7.42 (7.35-7.45); ABG PO2 98 mmHg (83-108)
[2016-08-22 05:12] LABS: ABG Base Excess -0.5 mmol/L; ABG TCO2 25 mmol/L (19-24)
[2016-08-22] MEDS ORDERED: POTASSIUM CHLORIDE ORAL LIQUID 40 MEQ/30 ML CUP NG-TUBE SCH (07:00)
[2016-08-22 07:36] LABS: Glucose,Whole Blood 192 mg/dL (75-99)
[2016-08-22] MEDS: BUDESONIDE 1 MG/2 ML NEBU INHALATION SCH ×2 (07:49→20:03)
[2016-08-22] MEDS: FORMOTEROL FUMARATE 20 MCG/2 ML NEBU INHALATION SCH ×2 (07:49→20:04)
--- NOTE | 2016-08-22 08:41 | XR ---
EXAMINATION TYPE: XR chest 1V portable DATE OF EXAM: 08/22/2016 6:38 AM COMPARISON: Prior chest x-ray August HISTORY: Abnormal chest x-ray, intubation TECHNIQUE: Single frontal view of the chest is obtained. FINDINGS: Tracheostomy tube is superimposed over the tracheal air column, NG tube is in place the di stal tip coursing towards the stomach, multiple surgical clips present over the neck. No evident pneu mothorax. Patchy basilar density is present left greater than right, hemidiaphragm obscured on the le ft. The patient is rotated. There are overlying cardiac leads. IMPRESSION: Similar findings, correlate for basilar atelectasis versus pneumonia, possible associate d effusion. Rotated exam, follow-up suggested.
[2016-08-22] MEDS: ATENOLOL 25 MG TAB PO SCH ×2 (08:45→09:34)
[2016-08-22] MEDS: DILTIAZEM ORAL 30 MG TAB PO SCH ×3 (08:45→21:58)
[2016-08-22] MEDS: ENOXAPARIN 40 MG/0.4 ML SYRINGE SQ SCH (08:45)
[2016-08-22] MEDS: LACTULOSE 20 GM/30 ML CUP NG-TUBE SCH ×4 (08:45→21:58)
[2016-08-22] MEDS: CHLORHEXIDINE GLUCONATE 15 ML CUP MUCOUS MEM SCH ×2 (08:45→20:32)
[2016-08-22] MEDS: PANTOPRAZOLE 40 MG/10 ML VIAL IV SCH (08:46)
[2016-08-22] MEDS: RIFAXIMIN 550 MG TABLET PO SCH ×2 (08:47→21:58)
--- NOTE | 2016-08-22 10:04 | P.PN ---
Subjective Progress note dated 08/22/2016 This is a 61-year-old man who was admitted back on 08/12/2016 He was seen with my nurse practitioner yesterday on . He does feel multiple weaning trials. History is very poor mental status with poor response with all sedation is off. He only responsive deep painful stimuli at best. Does not open his eyes. Does not follow commands. He's get a couple different issues including his tracheostomy site which probably needs revision. It was originally get a [facility] and I think we should send the patient back there the patient once patient's family wants to continue life support. Anyway the patient's currently on the assist control mode rate of 32, tidal volume of 450 FiO2 50% PEEP of 5. The patient is receiving Nepro at 35 with a goal of 35 the Brovana is at 20 mics per kilogram per minute. He is also getting appointment 9 at 10 mL an hour and appointment for 5 IV at 50 mL an hour. Blood gases are reasonable with a pO2 of 98 a pCO2 of 36 and a pH 7.42. Apparently a CAT scan of the brain yesterday showed only evidence of a possible adenoma. An MRI was suggested. Objective - Vital Signs Vital signs: Vital Signs Temp 98.3 F 08/22/16 08:00 Pulse 120 H 08/22/16 09:00 Resp 33 H 08/22/16 09:00 BP 122/70 08/22/16 09:00 Pulse Ox 99 08/22/16 09:00 Intake & Output 08/21/16 08/22/16 08/22/16 18:59 06:59 18:59 Intake Total 150.014 1745.700 363.467 Output Total 2345 2765 595 Balance -1390.217 -1239.300 -231.533 Weight 116.7 kg 112.7 kg Intake: IV 760.0 747.5 182.5 0.9 at KVO 10 60 20 Levofloxacin 500Mg-D5w 100 Pmx 500 mg In Dextrose/ Water 1 100ml.bag @ 100 mls/hr IVPB Q24H [facility] Rx#: [id number] Piperacillin-Tazobactam 3 50.0 87.5 12.5 .375 gm In Dextrose/Water 1 50ml.bag @ 12.5 mls/hr IVPB Q8HR [facility] Rx#: [id number] Sodium Chloride 0.45% 1, 600 600 150 000 ml @ 50 mls/hr IV . Q20H [facility] Rx#:[id number] Intake, IV Titration 4.783 103.200 45.967 Amount Propofol 500 mg In Empty 4.783 103.200 45.967 Bag 1 bag @ Titrate IV . Q0M [facility] Rx#:[id number] Tube Feeding 190 525 105 Other 150 30 Output: Urine 1445 1165 295 Stool 900 1600 300 Other: Voiding Method Indwelling Catheter Indwelling Catheter - Exam No acute distress, currently sedated, on the ventilator. HEENT examination is grossly unremarkable. NG tube and endotracheal tube is noted. Neck is Supple. Full range of motion. Cardiovascular examination reveals regular rhythm rate. S1-S2 normal. No murmur. Lungs reveal relatively clear breath sounds. No wheezes or rhonchi. Abdomen soft. Extremities are intact. - Labs CBC & Chem 7: 08/22/16 04:17 08/22/16 04:17 Labs: Abnormal Lab Results - Last 24 Hours (Table) 08/21/16 08/21/16 08/21/16 Range/Units 11:55 18:31 20:18 WBC (3.8-10.6) k/uL MCV (80.0-100.0) fL RDW (11.5-15.5) % Plt Count (150-450) k/uL ABG Total CO2 (19-24) mmol/L ABG O2 Saturation (94-97) % Sodium (137-145) mmol/L Chloride (98-107) mmol/L BUN (9-20) mg/dL Creatinine (0.66-1.25) mg/dL Glucose (74-99) mg/dL POC Glucose (mg/dL) 180 H 214 H 167 H (75-99) mg/dL Phosphorus (2.5-4.5) mg/dL Magnesium (1.6-2.3) mg/dL Total Bilirubin (0.2-1.3) mg/dL AST (17-59) U/L ALT (21-72) U/L Ammonia (<30) umol/L Total Protein (6.3-8.2) g/dL Albumin (3.5-5.0) g/dL 08/22/16 08/22/1617 Range/Units 00:08 04:17 04:17 WBC 24.8 H (3.8-10.6) k/uL MCV 101.3 H (80.0-100.0) fL RDW 17.9 H (11.5-15.5) % Plt Count 132 L (150-450) k/uL ABG Total CO2 (19-24) mmol/L ABG O2 Saturation (94-97) % Sodium 159 H (137-145) mmol/L Chloride 124 H* (98-107) mmol/L BUN 76 H (9-20) mg/dL Creatinine 1.40 H (0.66-1.25) mg/dL Glucose 233 H (74-99) mg/dL POC Glucose (mg/dL) 159 H (75-99) mg/dL Phosphorus 5.4 H (2.5-4.5) mg/dL Magnesium 4.8 H* (1.6-2.3) mg/dL Total Bilirubin 1.8 H (0.2-1.3) mg/dL AST 111 H (17-59) U/L ALT 112 H (21-72) U/L Ammonia (<30) umol/L Total Protein 5.7 L (6.3-8.2) g/dL Albumin 2.7 L (3.5-5.0) g/dL 08/22/16 08/22/16 08/22/16 Range/Units 04:17 04:34 05:05 WBC (3.8-10.6) k/uL MCV (80.0-100.0) fL RDW (11.5-15.5) % Plt Count (150-450) k/uL ABG Total CO2 25 H (19-24) mmol/L ABG O2 Saturation 98.0 H (94-97) % Sodium (137-145) mmol/L Chloride (98-107) mmol/L BUN (9-20) mg/dL Creatinine (0.66-1.25) mg/dL Glucose (74-99) mg/dL POC Glucose (mg/dL) 194 H (75-99) mg/dL Phosphorus (2.5-4.5) mg/dL Magnesium (1.6-2.3) mg/dL Total Bilirubin (0.2-1.3) mg/dL AST (17-59) U/L ALT (21-72) U/L Ammonia 94 H (<30) umol/L Total Protein (6.3-8.2) g/dL Albumin (3.5-5.0) g/dL 08/22/16 Range/Units 07:30 WBC (3.8-10.6) k/uL MCV (80.0-100.0) fL RDW (11.5-15.5) % Plt Count (150-450) k/uL ABG Total CO2 (19-24) mmol/L ABG O2 Saturation (94-97) % Sodium (137-145) mmol/L Chloride (98-107) mmol/L BUN (9-20) mg/dL Creatinine (0.66-1.25) mg/dL Glucose (74-99) mg/dL POC Glucose (mg/dL) 192 H (75-99) mg/dL Phosphorus (2.5-4.5) mg/dL Magnesium (1.6-2.3) mg/dL Total Bilirubin (0.2-1.3) mg/dL AST (17-59) U/L ALT (21-72) U/L Ammonia (<30) umol/L Total Protein (6.3-8.2) g/dL Albumin (3.5-5.0) g/dL Assessment and Plan (1) Respiratory failure Status: Acute (2) Ventilator dependence Status: Acute (3) CHF (congestive heart failure) Status: Acute (4) Encephalopathy Status: Acute (5) Laryngeal carcinoma Status: Acute (6) Status post tracheostomy Status: Acute Plan: Plan The patient's overall prognosis is very poor. We'll review the labs x-rays and medications. His ammonia levels have been addressed. CAT scan of the brain apparently showed just an adenoma. We stopped all sedation and the patient still did not have any improvement in his mental status. We'll talk to the family today about transfer to [facility] or withdrawal of I support. No discharge recommendations are made. Prognosis is very poor. Time with Patient: Greater than 30
[2016-08-22] MEDS: DEXTROSE 5% IN WATER 1,000 ML IV SCH ×2 (12:01→20:34)
[2016-08-22 12:12] LABS: Glucose,Whole Blood 234 mg/dL (75-99)
--- NOTE | 2016-08-22 12:40 | PN ---
A 61-year-old gentleman with respiratory failure. He is off sedation and not very responsive. On exam, patient remains in sinus rhythm, blood pressure is normal. Chest exam reveals diminished air entry at the bases. Heart exam reveals first and second heart sounds. No gallop. Labs today show that pH is 7.4, pCO2 is 98. Sodium is elevated. BUN is 76. Creatinine is 1.4. ASSESSMENT: Atrial tachycardia. The patient is in sinus rhythm on amiodarone. Continue his current medication.
--- NOTE | 2016-08-22 14:35 | P.PN ---
Subjective 71-year-old gentleman with history of laryngeal cancer underwent chemoradiation and surgical intervention in the past comes in to the hospital with progressive worsening of breathing difficulty associated with cough that has been nonproductive in nature. Patient was noted to have diffuse rhonchi and initial evaluation. Patient was thereafter required to be decannulated on the previous tracheotomy site. This was done with a size 4 shiley and was cough. Patient was started on empiric antibiotic therapy. Breathing treatments and steroids were started. Thereafter however patient continues to have thick mucous secretions through the ET tube. Weaning trials were attempted today however patient did not tolerated. Patient was currently on minimal sedation with propofol. However apparently off sedation patient has multiple episodes of tachypnea likely associated with anxiety. No other overnight events reported. 08/17/2016 Patient apparently went into atrial fibrillation with rapid ventricular rate. Continues to have thick moderate ET tube secretions. No other overnight events reported. Patient is currently sedated and on ventilator support. Issues with cuff leak around the tube. Currently back on the ventilator, on sedation with propofol Sinus rhythm. 08/19/2016 Patient has been off sedation. Chest x-ray this a.m. was slightly worse. During the time of my examination patient was not awake currently maintained on vent support. 2016 Not arousable after being off sedation for over 30 hrs On vent support. 2016 No improvement. FMS in place, has increased stool output Breath stacking on the vent. 2001 No change in mental status. Objective - Vital Signs Vital signs: Vital Signs Temp 98.7 F 08/22/16 12:00 Pulse 99 08/22/16 12:24 Resp 35 H 08/22/16 12:00 BP 126/71 08/22/16 12:00 Pulse Ox 99 08/22/16 12:00 Intake & Output 08/21/16 08/22/16 08/22/16 18:59 06:59 18:59 Intake Total 769.870 1968.700 565.000 Output Total 2345 2765 820 Balance -1390.217 -1239.300 -255.000 Weight 116.7 kg 112.7 kg Intake: IV 760.0 747.5 345.0 0.9 at KVO 10 60 20 Levofloxacin 500Mg-D5w 100 Pmx 500 mg In Dextrose/ Water 1 100ml.bag @ 100 mls/hr IVPB Q24H YONATHAN Rx#: [id number] Piperacillin-Tazobactam 3 50.0 87.5 25.0 .375 gm In Dextrose/Water 1 50ml.bag @ 12.5 mls/hr IVPB Q8HR YONATHAN Rx#: [id number] Sodium Chloride 0.45% 1, 600 600 300 000 ml @ 50 mls/hr IV . Q20H YONATHAN Rx#:[id number] Intake, IV Titration 4.783 103.200 50.000 Amount Propofol 500 mg In Empty 4.783 103.200 50.000 Bag 1 bag @ Titrate IV . Q0M YONATHAN Rx#:[id number] Tube Feeding 190 525 140 Other 150 30 Output: Urine 1445 1165 520 Stool 900 1600 300 Other: Voiding Method Indwelling Catheter Indwelling Catheter Indwelling Catheter - Exam Gen. appearance sedated Neck patient has a cuffed size 4 pediatric tube Lungs diffuse rhonchi air movement appreciated, mod. amounts of reddish secretions noted. Heart S1-S2 heard regular rate and rhythm no murmurs. Abdomen is soft nontender no organomegaly Lower extremities no edema noted. - Labs CBC & Chem 7: 08/22/16 04:17 08/22/16 04:17 Labs: Abnormal Lab Results - Last 24 Hours (Table) 08/21/16 08/21/16 08/22/16 Range/Units 18:31 20:18 00:08 WBC (3.8-10.6) k/uL MCV (80.0-100.0) fL RDW (11.5-15.5) % Plt Count (150-450) k/uL ABG Total CO2 (19-24) mmol/L ABG O2 Saturation (94-97) % Sodium (137-145) mmol/L Chloride (98-107) mmol/L BUN (9-20) mg/dL Creatinine (0.66-1.25) mg/dL Glucose (74-99) mg/dL POC Glucose (mg/dL) 214 H 167 H 159 H (75-99) mg/dL Phosphorus (2.5-4.5) mg/dL Magnesium (1.6-2.3) mg/dL Total Bilirubin (0.2-1.3) mg/dL AST (17-59) U/L ALT (21-72) U/L Ammonia (<30) umol/L Total Protein (6.3-8.2) g/dL Albumin (3.5-5.0) g/dL 08/22/16 08/22/16 08/22/16 Range/Units 04:17 04:17 04:17 WBC 24.8 H (3.8-10.6) k/uL MCV 101.3 H (80.0-100.0) fL RDW 17.9 H (11.5-15.5) % Plt Count 132 L (150-450) k/uL ABG Total CO2 (19-24) mmol/L ABG O2 Saturation (94-97) % Sodium 159 H (137-145) mmol/L Chloride 124 H* (98-107) mmol/L BUN 76 H (9-20) mg/dL Creatinine 1.40 H (0.66-1.25) mg/dL Glucose 233 H (74-99) mg/dL POC Glucose (mg/dL) (75-99) mg/dL Phosphorus 5.4 H (2.5-4.5) mg/dL Magnesium 4.8 H* (1.6-2.3) mg/dL Total Bilirubin 1.8 H (0.2-1.3) mg/dL AST 111 H (17-59) U/L ALT 112 H (21-72) U/L Ammonia 94 H (<30) umol/L Total Protein 5.7 L (6.3-8.2) g/dL Albumin 2.7 L (3.5-5.0) g/dL 08/22/16 08/22/16 08/22/16 Range/Units 04:34 05:05 07:30 WBC (3.8-10.6) k/uL MCV (80.0-100.0) fL RDW (11.5-15.5) % Plt Count (150-450) k/uL ABG Total CO2 25 H (19-24) mmol/L ABG O2 Saturation 98.0 H (94-97) % Sodium (137-145) mmol/L Chloride (98-107) mmol/L BUN (9-20) mg/dL Creatinine (0.66-1.25) mg/dL Glucose (74-99) mg/dL POC Glucose (mg/dL) 194 H 192 H (75-99) mg/dL Phosphorus (2.5-4.5) mg/dL Magnesium (1.6-2.3) mg/dL Total Bilirubin (0.2-1.3) mg/dL AST (17-59) U/L ALT (21-72) U/L Ammonia (<30) umol/L Total Protein (6.3-8.2) g/dL Albumin (3.5-5.0) g/dL 08/22/16 Range/Units 12:06 WBC (3.8-10.6) k/uL MCV (80.0-100.0) fL RDW (11.5-15.5) % Plt Count (150-450) k/uL ABG Total CO2 (19-24) mmol/L ABG O2 Saturation (94-97) % Sodium (137-145) mmol/L Chloride (98-107) mmol/L BUN (9-20) mg/dL Creatinine (0.66-1.25) mg/dL Glucose (74-99) mg/dL POC Glucose (mg/dL) 234 H (75-99) mg/dL Phosphorus (2.5-4.5) mg/dL Magnesium (1.6-2.3) mg/dL Total Bilirubin (0.2-1.3) mg/dL AST (17-59) U/L ALT (21-72) U/L Ammonia (<30) umol/L Total Protein (6.3-8.2) g/dL Albumin (3.5-5.0) g/dL Assessment and Plan Plan: #1 acute hypoxic hypercapnic respiratory failure sec A secondary to acute exacerbation of COPD from an acute episode of tracheobronchitis. #2 history of laryngeal cancer status post chemoradiation and surgical intervention #3 acute kidney injury that is improving #4 acute on chronic mildly decompensated diastolic heart failure #5 non-anion gap metabolic acidosis #6 leukocytosis #Hypothyroidism #8 atrial fibrillation with rapid ventricular rate #9 healthcare acquired pneumonia likely gram-negative in the left lower lobe Acute metabolic encephalopathy sec to hyperammonemia due liver cirrhosis. Plan pulmonary critical care recommendations noted. Family discussion to be made and decision regarding withdrawal of care or transfer to a higher level of care i to be made however patient's mental status is not improving and complicates the need for transfer. Continue ongoing care
[2016-08-22 17:11] LABS: Glucose,Whole Blood 226 mg/dL (75-99)
[2016-08-22 20:30] LABS: Glucose,Whole Blood 215 mg/dL (75-99)
[2016-08-22] MEDS: INSULIN DETEMIR 100 UNIT/ML 10 ML VIAL SQ SCH (20:33)
[2016-08-22] MEDS: LEVOTHYROXINE 100 MCG TAB PO SCH (21:58)
[2016-08-23 00:06] LABS: Glucose,Whole Blood 244 mg/dL (75-99)
[2016-08-23] MEDS: INSULIN LISPRO (humaLOG) 300 UNIT/3 ML VIAL SQ SCH ×4 (00:10→12:00)
[2016-08-23] MEDS: PROPOFOL 500 MG in EMPTY BAG 1 BAG IV SCH ×5 (00:10→10:03)
[2016-08-23] MEDS: methylPREDNISolone SOD SUCCI 125 MG/2 ML VIAL IV SCH ×3 (00:10→11:59)
[2016-08-23] MEDS: IPRATROPIUM-ALBUTEROL 3 ML NEB INHALATION SCH ×3 (03:21→11:52)
[2016-08-23 04:53] LABS: Glucose,Whole Blood 261 mg/dL (75-99)
[2016-08-23 08:01] LABS: Glucose,Whole Blood 234 mg/dL (75-99)
[2016-08-23] MEDS: BUDESONIDE 1 MG/2 ML NEBU INHALATION SCH (08:05)
[2016-08-23] MEDS: FORMOTEROL FUMARATE 20 MCG/2 ML NEBU INHALATION SCH (08:05)
[2016-08-23] MEDS: DEXTROSE 5% IN WATER 1,000 ML IV SCH (08:18)
[2016-08-23] MEDS: CHLORHEXIDINE GLUCONATE 15 ML CUP MUCOUS MEM SCH (08:29)
[2016-08-23] MEDS: ENOXAPARIN 40 MG/0.4 ML SYRINGE SQ SCH (08:29)
[2016-08-23] MEDS: ATENOLOL 25 MG TAB PO SCH (08:30)
[2016-08-23] MEDS: PANTOPRAZOLE 40 MG/10 ML VIAL IV SCH (08:30)
[2016-08-23] MEDS: RIFAXIMIN 550 MG TABLET PO SCH (08:31)
--- NOTE | 2016-08-23 09:29 | P.PN ---
Subjective Progress note dated 08/22/2016 This is a 61-year-old man who was admitted back on 08/12/2016 He was seen with my nurse practitioner yesterday on . He does feel multiple weaning trials. History is very poor mental status with poor response with all sedation is off. He only responsive deep painful stimuli at best. Does not open his eyes. Does not follow commands. He's get a couple different issues including his tracheostomy site which probably needs revision. It was originally get a [facility] and I think we should send the patient back there the patient once patient's family wants to continue life support. Anyway the patient's currently on the assist control mode rate of 32, tidal volume of 450 FiO2 50% PEEP of 5. The patient is receiving Nepro at 35 with a goal of 35 the Brovana is at 20 mics per kilogram per minute. He is also getting appointment 9 at 10 mL an hour and appointment for 5 IV at 50 mL an hour. Blood gases are reasonable with a pO2 of 98 a pCO2 of 36 and a pH 7.42. Apparently a CAT scan of the brain yesterday showed only evidence of a possible adenoma. An MRI was suggested. Progress note dated 08/23/2016 This is a 61-year-old male who was admitted back on August 12. The patient has had poor multiple weaning trials of that has done very poorly on all them. He is a very poor mental status and a very poor response with sedation is off. A computed tomography scan did not show anything acute although did show evidence of the pituitary adenoma. The patient Don is a DO NOT RESUSCITATE. I did have a long discussion with the and the daughter yesterday. They state the patient would not want to be on life support. I also talked about possible transfer to [facility] or [facility] in the did not want that. Initial tracheostomy was done at [facility] but they did not want to go there anymore. Currently the patient is on the assist control mode rate of 30 tidal Lyme 450 FiO2 50% PEEP of 5 no blood gases were done. No labs were done. Is getting D5W at 100 mL an hour. In the diprovan at 20 mics per kilogram per minute and getting Nepro at a rate of 35 with a goal of 35. Objective - Vital Signs Vital signs: Vital Signs Temp 98.2 F 08/23/16 08:00 Pulse 97 08/23/16 09:00 Resp 26 H 08/23/16 09:00 BP 110/58 08/23/16 09:00 Pulse Ox 93 L 08/23/16 09:00 Intake & Output 08/22/16 08/23/16 08/23/16 18:59 06:59 18:59 Intake Total 3522.286 9864.266 520.233 Output Total 1315 1985 80 Balance 545.150 -564.734 440.233 Weight 110 kg Intake: IV 920.0 1100 200 0.9 at KVO 20 Dextrose 5% in Water 1, 500 1100 200 000 ml @ 100 mls/hr IV . Q10H YONATHAN Rx#:[id number] Piperacillin-Tazobactam 3 50.0 .375 gm In Dextrose/Water 1 50ml.bag @ 12.5 mls/hr IVPB Q8HR YONATHAN Rx#: [id number] Sodium Chloride 0.45% 1, 350 000 ml @ 50 mls/hr IV . Q20H YONATHAN Rx#:[id number] Intake, IV Titration 60.150 145.266 0.233 Amount Propofol 500 mg In Empty 60.150 145.266 0.233 Bag 1 bag @ Titrate IV . Q0M YONATHAN Rx#:[id number] Tube Feeding 350 175 70 Other 530 250 Output: Urine 1015 785 80 Stool 300 1200 Other: Voiding Method Indwelling Catheter Indwelling Catheter - Exam No acute distress, currently sedated, on the ventilator. HEENT examination is grossly unremarkable. NG tube and tracheostomy tube is noted. Neck is Supple. Full range of motion. Cardiovascular examination reveals regular rhythm rate. S1-S2 normal. No murmur. Lungs reveal relatively clear breath sounds. No wheezes or rhonchi. Abdomen soft. Extremities are intact. - Labs CBC & Chem 7: 08/22/16 04:17 08/22/16 04:17 Labs: Abnormal Lab Results - Last 24 Hours (Table) 08/22/16 08/22/16 08/22/16 Range/Units 12:06 17:08 20:27 POC Glucose (mg/dL) 234 H 226 H 215 H (75-99) mg/dL 08/23/16 08/23/16 08/23/16 Range/Units 00:05 04:52 07:59 POC Glucose (mg/dL) 244 H 261 H 234 H (75-99) mg/dL Assessment and Plan (1) Respiratory failure Status: Acute (2) Ventilator dependence Status: Acute (3) CHF (congestive heart failure) Status: Acute (4) Encephalopathy Status: Acute (5) Laryngeal carcinoma Status: Acute (6) Status post tracheostomy Status: Acute Plan: Plan The patient's overall prognosis is very poor. We'll review the labs x-rays and medications. His ammonia levels have been addressed. CAT scan of the brain apparently showed just an adenoma. We stopped all sedation and the patient still did not have any improvement in his mental status. We'll talk to the family today about transfer to [facility] or withdrawal of I support. No discharge recommendations are made. Prognosis is very poor. Plan dated 08/23/2016 The patient's family apparently is decided to withdraw life support later today. Apparently waiting for family member from [place]. No labs or x-rays were done today. No blood gases were done. Additional recommendations suggestions are forthcoming. Prognosis is poor. Again the family did not want the patient transferred back to the [facility] or to [facility] for additional therapy. Time with Patient: Greater than 30
[2016-08-23] MEDS: LACTULOSE 20 GM/30 ML CUP NG-TUBE SCH ×2 (09:32→12:03)
[2016-08-23] MEDS: DILTIAZEM ORAL 30 MG TAB PO SCH (09:32)
--- NOTE | 2016-08-23 10:10 | PN ---
A 61-year-old gentleman who is admitted to ICU with respiratory failure. He is not responsive off sedation, remains in sinus rhythm, on beta blockers and Cardizem that I started him on. On exam, heart rate is 90 beats, blood pressure 110/58, respiratory rate is 26. Chest exam reveals diminished air entry bilaterally. Heart exam reveals first and second heart sounds. No gallop. Exam of the extremities reveals 1+ edema. Peripheral pulses are felt. Labs show elevated blood sugars. Potassium is 3.8 from yesterday. I do not have any labs from today. ASSESSMENT: 1. Paroxysmal atrial tachycardia, doing well. 2. Respiratory failure and patient is unresponsive in spite of being off sedation. He is currently being considered for terminal wean. I am going to see him on an as-needed basis at this time.
[2016-08-23 12:00] LABS: Glucose,Whole Blood 197 mg/dL (75-99)
[2016-08-23 12:15] VITALS: TEMP 98.3
[2016-08-23 14:11] VITALS: BP 116/57; PULSE 98; RESP 32
--- NOTE | 2016-08-23 14:32 | P.DS ---
Providers Date of admission: 08/12/16 17:59 Attending physician: Tigist Colmenares Consults: 08/12/16 18:06 Consult Physician Routine Consulting Provider: Bryn Polanco Consult Reason/Comments: trachostomy blockage Do you want consulting provider notified?: Yes 08/18/16 10:01 Consult Physician Stat Consulting Provider: Larry Bynum Consult Reason/Comments: Tracheostomy change Do you want consulting provider notified?: Yes Primary care physician: [facility] Course: 71-year-old gentleman with history of laryngeal cancer underwent chemoradiation and surgical intervention in the past comes in to the hospital with progressive worsening of breathing difficulty associated with cough that has been nonproductive in nature. Patient was noted to have diffuse rhonchi and initial evaluation. Patient was thereafter required to be decannulated on the previous tracheotomy site. This was done with a size 4 shiley and was cough. Patient was started on empiric antibiotic therapy. Breathing treatments and steroids were started. Thereafter however patient continues to have thick mucous secretions through the ET tube. Weaning trials were attempted today however patient did not tolerated. Patient was currently on minimal sedation with propofol. However apparently off sedation patient has multiple episodes of tachypnea likely associated with anxiety. No other overnight events reported. 08/17/2016 Patient apparently went into atrial fibrillation with rapid ventricular rate. Continues to have thick moderate ET tube secretions. No other overnight events reported. Patient is currently sedated and on ventilator support. Issues with cuff leak around the tube. Currently back on the ventilator, on sedation with propofol Sinus rhythm. 08/19/2016 Patient has been off sedation. Chest x-ray this a.m. was slightly worse. During the time of my examination patient was not awake currently maintained on vent support. 2016 Not arousable after being off sedation for over 30 hrs On vent support. 2016 No improvement. FMS in place, has increased stool output Breath stacking on the vent. 2001 No change in mental status. Gen. appearance sedated Neck patient has a cuffed size 4 pediatric tube Lungs diffuse rhonchi air movement appreciated, mod. amounts of reddish secretions noted. Heart S1-S2 heard regular rate and rhythm no murmurs. Abdomen is soft nontender no organomegaly Lower extremities no edema noted. Neuro sedated Assessment and Plan Plan: #1 acute hypoxic hypercapnic respiratory failure sec A secondary to acute exacerbation of COPD from an acute episode of tracheobronchitis. #2 history of laryngeal cancer status post chemoradiation and surgical intervention #3 acute kidney injury that is improving #4 acute on chronic mildly decompensated diastolic heart failure #5 non-anion gap metabolic acidosis #6 leukocytosis #Hypothyroidism #8 atrial fibrillation with rapid ventricular rate #9 healthcare acquired pneumonia likely gram-negative in the left lower lobe Acute metabolic encephalopathy sec to hyperammonemia due liver cirrhosis. Goals of care were changed to comfort measures only Pt will be discharged to hospice after discussion with family, who stated he would have never wanted to live like this. Terminal wean Morphine drip ativan prn Plan - Discharge Summary Discharge Medication List Budesonide [Pulmicort] 0.5 mg INHALATION RT-BID 11/11/13 [History] Furosemide [Lasix] 40 mg PO TID 11/11/13 [History] Azithromycin [Zithromax] 250 mg PO [id number] 08/12/16 [History] Lactulose 30 gm PO DAILY 08/12/16 [History] Levothyroxine Sodium [Synthroid] 100 mcg PO HS 08/12/16 [History] Spironolactone [Aldactone] 50 mg PO TID 08/12/16 [History] Follow up Appointment(s)/Referral(s): Iban Torres MD [Primary Care Provider] - 1-2 days
== END 2016-08-23 14:28 | disposition still patient (30) | DRG 207 ==
LOC: EC 16:29 → 6SEL 17:59 → 6ICU 08-14 09:05
PROVIDERS: ADMIT Internal Medicine; ATTEND Internal Medicine
PROC: 5A1955Z Respiratory Ventilation, Greater than 96 Consecutive Hours (ICD-10-PCS; principal; 2016-08-14)
DX: J44.0 Chronic obstructive pulmonary disease with (acute) lower respiratory infection (principal); J15.6 Pneumonia due to other Gram-negative bacteria; I50.33 Acute on chronic diastolic (congestive) heart failure; N17.9 Acute kidney failure, unspecified; I11.0 Hypertensive heart disease with heart failure; E87.2 Acidosis; J96.01 Acute respiratory failure with hypoxia; Z99.11 Dependence on respirator [ventilator] status; T17.990A Other foreign object in respiratory tract, part unspecified in causing asphyxiation, initial encounter; D72.829 Elevated white blood cell count, unspecified; I47.1 Supraventricular tachycardia; J44.1 Chronic obstructive pulmonary disease with (acute) exacerbation; E87.6 Hypokalemia; Z85.21 Personal history of malignant neoplasm of larynx; E03.9 Hypothyroidism, unspecified; D35.2 Benign neoplasm of pituitary gland; Z66 Do not resuscitate; F41.1 Generalized anxiety disorder; K74.60 Unspecified cirrhosis of liver; K72.90 Hepatic failure, unspecified without coma; J20.9 Acute bronchitis, unspecified; T38.0X5A Adverse effect of glucocorticoids and synthetic analogues, initial encounter; Y95 Nosocomial condition; I48.91 Unspecified atrial fibrillation; K21.9 Gastro-esophageal reflux disease without esophagitis; Z92.3 Personal history of irradiation; Z92.21 Personal history of antineoplastic chemotherapy; Z90.02 Acquired absence of larynx; Z87.891 Personal history of nicotine dependence; Z80.42 Family history of malignant neoplasm of prostate; Z93.0 Tracheostomy status; Z79.899 Other long term (current) drug therapy; Z85.848 Personal history of malignant neoplasm of other parts of nervous tissue
CPT/HCPCS: 36415; 36600; 70450; 71010; 71020; 80048; 80053; 81001; 82140; 82550; 82553; 82805; 83036; 83735; 84100; 84132; 84484; 85025; 85027; 85379; 85610; 85730; 87040; 87070; 87086; 87205; 87502; 93005; 93306; 93970; 94002; 94003; 94640; 96365; 96368; 99291

== ENCOUNTER 2016-08-23 15:03 | Inpatient (IN) | payer MEDICAID ==
[2016-08-23] MEDS ORDERED: LORazepam 2 MG/ML SYRINGE IV PRN (15:12)
[2016-08-23] MEDS ORDERED: ATROPINE OPHTH SOLN 1% 5ML BTL SUBLINGUAL PRN (15:12)
[2016-08-23] MEDS ORDERED: ACETAMINOPHEN SUPPOSITORY 650 MG SUPP RECTAL PRN (15:13)
[2016-08-23] MEDS ORDERED: BISACODYL 10 MG SUPP RECTAL PRN (15:14)
[2016-08-23] MEDS ORDERED: ONDANSETRON 4 MG/2 ML VIAL IVP PRN (15:15)
[2016-08-23] MEDS ORDERED: ARTIFICIAL TEARS-HYPROMELLOSE DROPS 15 ML BTL BOTH EYES PRN (15:15)
[2016-08-23] MEDS ORDERED: MORPHINE SULFATE 100 MG in SODIUM CHLORIDE 0.9% 100 ML IV SCH (15:30)
[2016-08-23] MEDS ORDERED: MORPHINE SULFATE 2 MG/ML SYRINGE IV ONE (15:30)
[2016-08-23 15:46] VITALS: BMI 38.0
[2016-08-23] MEDS: SODIUM CHLORIDE 0.9% 500 ML IV SCH (16:10)
[2016-08-24 03:58] VITALS: PULSE 102
[2016-08-24 07:15] VITALS: BP 117/66; TEMP 97.5
[2016-08-24 08:11] VITALS: RESP 6
[2016-08-24] MEDS: SODIUM CHLORIDE 0.9% 500 ML IV SCH (15:58)
== END 2016-08-25 05:18 | disposition expired | DRG 190 ==
LOC: 6ICU 15:03 → 5ONC 08-24 10:07
PROVIDERS: ADMIT Internal Medicine; ATTEND Internal Medicine
DX: J44.0 Chronic obstructive pulmonary disease with (acute) lower respiratory infection (principal); J18.9 Pneumonia, unspecified organism; N17.9 Acute kidney failure, unspecified; I11.0 Hypertensive heart disease with heart failure; I50.9 Heart failure, unspecified; J44.1 Chronic obstructive pulmonary disease with (acute) exacerbation; Z85.21 Personal history of malignant neoplasm of larynx; Z92.21 Personal history of antineoplastic chemotherapy; Z92.3 Personal history of irradiation; E87.6 Hypokalemia; Z87.891 Personal history of nicotine dependence; E03.9 Hypothyroidism, unspecified; Z51.5 Encounter for palliative care